=== PATIENT | male | born 1945 | race Caucasian/White ===

== ENCOUNTER 2021-08-21 23:55 | Emergency (ER) | payer MEDICARE, MEDICAID ==
[~2021-08-21] VITALS: Ht 154.9 cm; Wt 106.5 kg
--- NOTE | 2021-08-22 01:14 | ED GI ---
General Chief Complaint: Abdominal/GI Problems Stated Complaint: DIARRHEA,VOMITING Nursing Triage Note: PT TO ROOM BY [facility]. PT BROUGHT FROM [facility] WITH COMPLAINTS OF DIARRHEA STARTED THIS AM AND VOMITING THIS EVENING. PER EMS, [facility] NURSE TRIED TO GET PRESCRIPTION FOR ZOFRAN AND THE DR RECOMMENDED PT BE SEEN AT ER. EMS REPORTS PT DOES HAVE A HX OF ALZHEIMERS AND DEMENTIA. EMS ALSO REPORTS PT IS NOT NORMALLY ON O2, BUT O2 SAT IS 88-90%. PT PLACED ON 3L NC, O2 98% Source of Information: Patient, EMS Exam Limitations: Other (dementia) History of Present Illness Date Seen by Provider: August 22, 2021 Time Seen by Provider: 01:00 Initial Comments Patient is a 76-year-old male who was sent from a local [facility] with a chief complaint of diarrhea and vomiting. According to nursing report the patient started having diarrhea this morning and vomiting later in the evening. The patient has a history of dementia but tells me that he vomited at least 5 times today. On my evaluation of the patient he is completely asymptomatic. He has no nausea, no abdominal pain. No cough or shortness of breath. Nursing reported that the patient had sats of 89 to 91% on room air and he was placed on 3 L with improvement to 97%. He denies any known sick contacts. He states he was able to eat a little bit today. He denies black or bloody stools. He states he is urinating normally. But again completely asymptomatic on my evaluation. History of smoking but none currently. All other review of systems reviewed and negative except as stated. Timing/Duration: 24 Hours Severity/Quality: Mild Associated Symptoms: Denies Symptoms Allergies and Home Medications Allergies Coded Allergies: nitrofurantoin (Verified Allergy, Unknown, 08/22/21) Patient Home Medication List Home Medication List Reviewed: Yes Cefdinir (Cefdinir) 300 Mg Capsule, 300 MG PO BID Prescribed by: ISAAC BENITEZ on 08/22/21 0250 Ondansetron (Ondansetron Odt) 4 Mg Tab.rapdis, 4 MG PO Q8H PRN for NAUSEA/VOMITING Prescribed by: ISAAC BENITEZ on 08/22/21 0250 Review of Systems Review of Systems Constitutional: see HPI EENTM: No Symptoms Reported Respiratory: No Symptoms Reported Cardiovascular: No Symptoms Reported Gastrointestinal: No Symptoms Reported Genitourinary: No Symptoms Reported Musculoskeletal: no symptoms reported Skin: no symptoms reported Psychiatric/Neurological: No Symptoms Reported All Other Systems Reviewed Negative Unless Noted: Yes Past Wntznld-Deeesd-Xjuvsx Hx Patient Social History Tobacco Use?: No Use of E-Cig and/or Vaping dev: No Substance use?: No Alcohol Use?: No Past Medical History Appendectomy Sleep Apnea, COPD Hypertension Neurological: Yes Dementia, Stroke Reproductive Disorders: No Sexually Transmitted Disease: No HIV/AIDS: No Benign Prostatic Hyperpl Gastrointestinal: Yes Gastroesophageal Reflux Endocrine: Yes Diabetes, Non-Insulin dep Physical Exam Vital Signs Vital Signs - First Documented 08/21/21 23:55 Temp 35.7 Pulse 98 Resp 24 B/P (MAP) 106/71 (83) Pulse Ox 98 O2 Delivery Nasal Cannula O2 Flow Rate 3.00 Capillary Refill : Height/Weight/BMI Height: '" Weight: lbs. oz. kg; 44.00 BMI Method: General Appearance: WD/WN, no apparent distress HEENT: other (Moist mucous membranes) Neck: normal inspection Respiratory: lungs clear, normal breath sounds, no respiratory distress, no accessory muscle use, other (No increased work of breathing, oxygen sats 97% on 3 L) Cardiovascular: regular rate, rhythm Gastrointestinal: normal bowel sounds, non tender, soft Extremities: normal range of motion, normal inspection, no pedal edema Neurologic/Psychiatric: alert, normal mood/affect, other (Oriented to self and location) Skin: normal color, warm/dry Progress/Results/Core Measures Results/Orders Lab Results Laboratory Tests Test 08/22/21 00:09 Range/Units White Blood Count 15.8 H 4.3-11.0 10^3/uL Red Blood Count 5.81 H 4.30-5.52 10^6/uL Hemoglobin 18.0 H 13.3-17.7 g/dL Hematocrit 57 H 40-54 % Mean Corpuscular Volume 98 80-99 fL Mean Corpuscular Hemoglobin 31 25-34 pg Mean Corpuscular Hemoglobin Concent 32 32-36 g/dL Red Cell Distribution Width 13.3 10.0-14.5 % Platelet Count 261 130-400 10^3/uL Mean Platelet Volume 11.2 9.0-12.2 fL Immature Granulocyte % (Auto) 0 % Neutrophils (%) (Auto) 85 H 42-75 % Lymphocytes (%) (Auto) 6 L 12-44 % Monocytes (%) (Auto) 8 0-12 % Eosinophils (%) (Auto) 0 0-10 % Basophils (%) (Auto) 0 0-10 % Neutrophils # (Auto) 13.4 H 1.8-7.8 10^3/uL Lymphocytes # (Auto) 1.0 1.0-4.0 10^3/uL Monocytes # (Auto) 1.3 H 0.0-1.0 10^3/uL Eosinophils # (Auto) 0.0 0.0-0.3 10^3/uL Basophils # (Auto) 0.1 0.0-0.1 10^3/uL Immature Granulocyte # (Auto) 0.1 0.0-0.1 10^3/uL Neutrophils % (Manual) 85 % Lymphocytes % (Manual) 5 % Monocytes % (Manual) 10 % Polychromasia SLIGHT Anisocytosis SLIGHT Sodium Level 139 135-145 MMOL/L Potassium Level 4.4 3.6-5.0 MMOL/L Chloride Level 105 98-107 MMOL/L Carbon Dioxide Level 13 L 21-32 MMOL/L Anion Gap 21 H 5-14 MMOL/L Blood Urea Nitrogen 17 7-18 MG/DL Creatinine 1.10 0.60-1.30 MG/DL Estimat Glomerular Filtration Rate 69 BUN/Creatinine Ratio 15 Glucose Level 168 H 70-105 MG/DL Calcium Level 10.4 H 8.5-10.1 MG/DL My Orders Orders - ISAAC BENITEZ MD Ed Iv/Invasive Line Start (08/22/21 01:13) Cbc With Automated Diff (08/22/21 01:13) Basic Metabolic Panel (08/22/21 01:13) Chest 1 View, Ap/Pa Only (08/22/21 01:13) Manual Differential (08/22/21 00:09) Ceftriaxone 1 Gm Pre-Mix (Rocephin 1 Gm (08/22/21 02:45) Ns Iv 1000 Ml (Sodium Chloride 0.9%) (08/22/21 02:45) Vital Signs/I&O 08/21/21 23:55 Temp 35.7 Pulse 98 Resp 24 B/P (MAP) 106/71 (83) Pulse Ox 98 O2 Delivery Nasal Cannula O2 Flow Rate 3.00 Blood Pressure Mean: 83 Progress Progress Note : Time: 02:37 Progress Note Laboratory studies reveal a leukocytosis with a left shift and likely some volume depletion as his hemoglobin and hematocrit are slightly increased and his CO2 is down to 13. He does look like he has a developing infiltrate in the right lower lobe on chest x-ray. We will give him a liter of fluids prior to discharge as well as 1 g of Rocephin. I plan to put him on some Omnicef and send him home with an albuterol inhaler. Nursing had to turn down his oxygen to 1 L and currently he is satting 94 to 96% on the 1 L. Anticipate that we will be able to bring him off the oxygen and send him back to [facility] and rehab. Recommendations for return to the emergency department if he develops any worsening symptoms I will also write for prescription for some Zofran. Patient is confused but pleasant, nontoxic and in no acute distress. Diagnostic Imaging Diagonstic Imaging: Xray Plain Films/CT/US/NM/MRI: chest Comments Chest x-ray interpreted by me, early infiltrate in the right lower lobe, no effusions Departure Impression Primary Impression: Right lower lobe pneumonia Qualified Codes: J18.9 - Pneumonia, unspecified organism Additional Impressions: Nausea and vomiting Qualified Codes: R11.2 - Nausea with vomiting, unspecified Dehydration, mild Disposition: 01 HOME, SELF-CARE Condition: Stable Departure-Patient Inst. Decision time for Depature: 02:40 Referrals: UNKNOWN (PCP/Family) Primary Care Physician Patient Instructions: Community-Acquired Pneumonia in Adults, Nausea and Vomiting, Adult ED Add. Discharge Instructions: He will need to drink fluids to stay well-hydrated. Zofran, every 8 hours, as needed for nausea. Omnicef/cefdinir 300 mg twice a day for 7 days. If he develops worsening nausea vomiting, shortness of breath or other emergent concerning symptoms he needs to come back to the emergency department for reevaluation peer He will need to follow-up within the next week with his primary care physician/[facility] physician. Scripts Ondansetron (Ondansetron Odt) 4 Mg Tab.rapdis 4 MG PO Q8H PRN for NAUSEA/VOMITING, #10 TAB 0 Refills Prov: ISAAC BENITEZ MD 08/22/21 Cefdinir (Cefdinir) 300 Mg Capsule 300 MG PO BID, #14 CAP 0 Refills Prov: ISAAC BENITEZ MD 08/22/21 ISAAC BENITEZ MD August 22, 2021 01:14
[2021-08-22 01:23] LABS: BASOPHILS # (AUTO) 0.1 10^3/uL (0.0-0.1); BASOPHILS % (AUTO) 0 % (0-10); EOSINOPHILS % (AUTO) 0 % (0-10); HEMATOCRIT 57 % (40-54); LYMPHOCYTES % (AUTO) 6 % (12-44); MEAN CORPUSCULAR HEMOGLOBIN 31 pg (25-34); MEAN CORPUSCULAR HGB CONC 32 g/dL (32-36); MEAN CORPUSCULAR VOLUME 98 fL (80-99); MEAN PLATELET VOLUME 11.2 fL (9.0-12.2); MONOCYTES # (AUTO) 1.3 10^3/uL (0.0-1.0); MONOCYTES % (AUTO) 8 % (0-12); NEUTROPHILS # (AUTO) 13.4 10^3/uL (1.8-7.8); NEUTROPHILS % (AUTO) 85 % (42-75); PLATELET COUNT 261 10^3/uL (130-400); WHITE BLOOD COUNT 15.8 10^3/uL (4.3-11.0)
[2021-08-22 01:24] LABS: POTASSIUM 4.4 MMOL/L (3.6-5.0)
[2021-08-22 01:25] LABS: CALCIUM 10.4 MG/DL (8.5-10.1)
[2021-08-22 01:30] LABS: CREATININE SERUM 1.1 MG/DL (0.60-1.30)
[2021-08-22 01:52] LABS: ANISOCYTOSIS SLIGHT; LYMPHOCYTES % (MANUAL) 5 %; MONOCYTES % (MANUAL) 10 %; NEUTROPHILS % (MANUAL) 85 %; POLYCHROMASIA SLIGHT
[2021-08-22] MEDS ORDERED: NS IV 1000 ML 1,000 ML IV SCH (02:45)
[2021-08-22] MEDS ORDERED: cefTRIAXone 1 GM PRE-MIX 50 ML IV ONE (02:45)
[2021-08-22] MEDS ORDERED: ONDA4TAB11 PO (02:50)
[2021-08-22] MEDS ORDERED: CEFD300C3 PO (02:50)
[2021-08-22 05:32] VITALS: BP 108/66
--- NOTE | 2021-08-22 07:01 | Diagnostic Imaging Report ---
EXAM: CHEST 1 VIEW, AP/PA ONLY INDICATION: Weakness. COMPARISON: None. FINDINGS: Cardiomegaly with pulmonary vascular congestion. Mild bibasilar atelectasis or infiltrate. No pleural effusion or pneumothorax. Cardiac pacer. No acute osseous findings. IMPRESSION: 1. Cardiomegaly with mild pulmonary vascular congestion. 2. Mild bibasilar atelectasis or infiltrate. Dictated by: Dictated on workstation # [id number]
== END 2021-08-22 05:32 | disposition home or self-care (01) ==
LOC: ER 23:58
DX: J18.9 Pneumonia, unspecified organism (principal); G30.9 Alzheimer's disease, unspecified; F02.80 Dementia in other diseases classified elsewhere, unspecified severity, without behavioral disturbance, psychotic disturbance, mood disturbance, and anxiety; Z99.81 Dependence on supplemental oxygen
CPT/HCPCS: 36415; 71045; 80048; 85007; 85027

== ENCOUNTER 2022-04-06 23:50 | Inpatient (IN) | payer MEDICARE, MEDICAID ==
[~2022-04-06] VITALS: Ht 185.5 cm; Wt 116.9 kg
[~2022-04-06 23:50] MED LIST: CEFD300C3 PO; ONDA4TAB11 PO
[2022-04-07] VITALS (7 sets, daily range): BP systolic 80–129; BP diastolic 42–94
[2022-04-07] MEDS ORDERED: LACTATED RINGERS 1,000 ML IV ONE
--- NOTE | 2022-04-07 00:02 | ED General ---
General Chief Complaint: Trauma-Non Activation Stated Complaint: FALL Source of Information: Patient, EMS, Care Home Records History of Present Illness Date Seen by Provider: Apr 07, 2022 Time Seen by Provider: 23:53 Initial Comments PT ARRIVES VIA EMS FROM [facility]. REPORT FROM [facility] WAS THAT PT HAD A WITNESSED "FALL" IN THE HALLWAY--BILLIARD TABLE MECHANIC REPORTEDLY SAW HIM STARTING TO "FALL" AND COULD NOT GET TO HIM FAST ENOUGH, AND HE FELL ONTO WOOD AURELIO, AND HAD + LOSS OF CONSCIOUSNESS FOR 30-45 SECONDS, AND WHEN HE CAME TO, HE SEEMED TO HAVE A DECREASED MENTATION FROM HIS NORMAL BASELINE OF MILD DEMENTIA. PT REPORTS THAT HE WAS ON HIS WAY TO THE BATHROOM AND WAS IN THE CASH AND GOT DIZZY AND PASSED OUT / FAINTED. BP READINGS WERE IN THE 80'S SYSTOLIC FOR [facility]UR[facility], AND BP FOR EMS WAS 88/69, WITH HR 89 PT IS ON ELIQUIS FOR HISTORY OF ATRIAL FIBRILLATION AND PRIOR STROKE. PT REPORTEDLY IS NORMALLY ABLE TO AMBULATE INDEPENDENTLY AND FOLLOW COMMANDS, ETC. ON ARRIVAL, PT IS ALERT, ORIENTED TO PERSON, PLACE, GROSSLY ORIENTED TO TIME, AND IS ORIENTED TO SITUATION AND IS ABLE TO STATE WHAT OCCURRED TONIGHT. HE IS ALSO ABLE TO VERIFY PAST MEDICAL HISTORY, BUT DOES NOT VOLUNTEER INFORMATION PT DENIES PAIN ANYWHERE OR FEELING BAD NO OBVIOUS WOUNDS OR BRUISING FROM THE FALL NOTED AT THIS TIME BLOOD GLUCOSE 179 FOR EMS. PT IS DNR PER [facility] RECORDS PCP: DR. NAZARIO / [facility] Allergies and Home Medications Allergies Coded Allergies: nitrofurantoin (Verified Allergy, Unknown, 08/22/21) Patient Home Medication List Home Medication List Reviewed: Yes Cefdinir (Cefdinir) 300 Mg Capsule, 300 MG PO BID Prescribed by: ISAAC BENITEZ on 08/22/21249 Ondansetron (Ondansetron Odt) 4 Mg Tab.rapdis, 4 MG PO Q8H PRN for NAUSEA/VOMITING Prescribed by: ISAAC BENITEZ on 08/22/21 025 Review of Systems Review of Systems Constitutional: see HPI, dizziness EENTM: no symptoms reported Respiratory: no symptoms reported; No cough, No short of breath Cardiovascular: No chest pain, No edema, No palpitations; syncope Gastrointestinal: no symptoms reported; No abdominal pain, No diarrhea, No nausea, No vomiting Genitourinary: no symptoms reported Musculoskeletal: no symptoms reported Skin: no symptoms reported Psychiatric/Neurological: See HPI; Denies Headache, Denies Numbness, Denies Paresthesia, Denies Seizure, Denies Tingling, Denies Tremors Hematologic/Lymphatic: See HPI Immunological/Allergic: no symptoms reported Past Urluzmg-Mmtbna-Wwstll Hx Past Medical History Surgeries: Yes Appendectomy, Pacemaker, Prostatectomy Respiratory: Yes Sleep Apnea, COPD Cardiac: Yes Atrial Fibrillation, High Cholesterol, Hypertension 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) Dementia, Neuropathy, Stroke Reproductive Disorders: No Sexually Transmitted Disease: No HIV/AIDS: No Genitourinary: Yes (RENAL CYST; PROSTATECTOMY --PT DENIES CANCER, ONLY ENLARGED PROSTATE) Benign Prostatic Hyperpl, Prostate Problems Gastrointestinal: Yes (S/P APPENDECTOMY) Gastroesophageal Reflux Musculoskeletal: Yes (GENERALIZED WEAKNESS) Endocrine: Yes (PROTEIN-CALORIE MALNUTRITION) Diabetes, Non-Insulin dep HEENT: Yes (TEETH REMOVED/DENTURES IN PLACE) Psychosocial: Yes (PSEUDOBULBAR AFFECT; S/P CVA; DEMENTIA; MOOD DISORDER) Sleep Difficulties, Anxiety, Depression Integumentary: No Blood Disorders: No Physical Exam Vital Signs Vital Signs - First Documented 04/07/22 01:30 O2 Flow Rate 2.00 Capillary Refill : Height, Weight, BMI Height: '" Weight: lbs. oz. kg; 44.00 BMI Method: General Appearance: No Apparent Distress, WD/WN, Other (SOMEWHAT LETHARGIC, DROWSY--STATES HE IS TIRED AND JUST WANTS TO BE ABLE TO GO TO SLEEP) HEENT: PERRL/EOMI, TMs Normal, Normal ENT Inspection, Pharynx Normal Neck: Full Range of Motion, Normal Inspection, Non Tender, Supple Respiratory: Normal Breath Sounds, No Accessory Muscle Use, No Respiratory Distress Cardiovascular: No Edema, No JVD, No Murmur, Normal Peripheral Pulses, Irregularly Irregular Gastrointestinal: Normal Bowel Sounds, No Organomegaly, No Pulsatile Mass, Non Tender, Soft Back: Normal Inspection, No CVA Tenderness, No Vertebral Tenderness Extremity: Normal Capillary Refill, Normal Inspection, Normal Range of Motion, Non Tender, No Calf Tenderness, No Pedal Edema Neurologic/Psychiatric: Alert, Oriented x3 (BUT MENTATION IS SLIGHTLY SLOW AND HAS FLAT AFFECT), No Motor/Sensory Deficits, frame bender II-XII Norm as Tested Skin: Normal Color, Warm/Dry; No Ecchymosis, No Petechia, No Rash; Other (NO EXTERNAL EVIDENCE OF TRAUMA ANYWHERE) Focused Exam Lactate Level 04/06/22 00:00: Lactic Acid Level 3.04*H Lactic Acid Level Laboratory Tests Test 04/06/22 00:00 Lactic Acid Level 3.04 MMOL/L (0.50-2.00) *H Progress/Results/Core Measures Suspected Sepsis SIRS Temperature: Pulse: Respiratory Rate: Laboratory Tests 04/06/22 00:00: White Blood Count 11.4H Blood Pressure / Mean: 04/06/22 00:00: Lactic Acid Level 3.04*H Laboratory Tests 04/06/22 00:00: Creatinine 0.76, INR Comment 1.5H, Platelet Count 291, Total Bilirubin 0.6 Results/Orders Lab Results Laboratory Tests Test 04/06/22 00:00 04/06/22 01:30 04/07/22 00:02 04/07/22 00:10 Range/Units White Blood Count 11.4 H 4.3-11.0 10^3/uL Red Blood Count 3.86 L 4.30-5.52 10^6/uL Hemoglobin 12.1 L 13.3-17.7 g/dL Hematocrit 36 L 40-54 % Mean Corpuscular Volume 93 80-99 fL Mean Corpuscular Hemoglobin 31 25-34 pg Mean Corpuscular Hemoglobin Concent 34 32-36 g/dL Red Cell Distribution Width 12.6 10.0-14.5 % Platelet Count 291 130-400 10^3/uL Mean Platelet Volume 11.6 9.0-12.2 fL Immature Granulocyte % (Auto) 1 % Neutrophils (%) (Auto) 54 42-75 % Lymphocytes (%) (Auto) 30 12-44 % Monocytes (%) (Auto) 13 H 0-12 % Eosinophils (%) (Auto) 2 0-10 % Basophils (%) (Auto) 0 0-10 % Neutrophils # (Auto) 6.1 1.8-7.8 10^3/uL Lymphocytes # (Auto) 3.4 1.0-4.0 10^3/uL Monocytes # (Auto) 1.5 H 0.0-1.0 10^3/uL Eosinophils # (Auto) 0.3 0.0-0.3 10^3/uL Basophils # (Auto) 0.1 0.0-0.1 10^3/uL Immature Granulocyte # (Auto) 0.1 0.0-0.1 10^3/uL Prothrombin Time 18.4 H 12.2-14.7 SEC INR Comment 1.5 H 0.8-1.4 Activated Partial Thromboplast Time 33 24-35 SEC Sodium Level 136 135-145 MMOL/L Potassium Level 3.7 3.6-5.0 MMOL/L Chloride Level 101 98-107 MMOL/L Carbon Dioxide Level 23 21-32 MMOL/L Anion Gap 12 5-14 MMOL/L Blood Urea Nitrogen 24 H 7-18 MG/DL Creatinine 0.76 0.60-1.30 MG/DL Estimat Glomerular Filtration Rate 93 BUN/Creatinine Ratio 32 Glucose Level 164 H 70-105 MG/DL Lactic Acid Level 3.04 *H 0.50-2.00 MMOL/L Calcium Level 8.5 8.5-10.1 MG/DL Corrected Calcium 9.2 8.5-10.1 MG/DL Magnesium Level 1.7 1.6-2.4 MG/DL Total Bilirubin 0.6 0.1-1.0 MG/DL Aspartate Amino Transf (AST/SGOT) 15 5-34 U/L Alanine Aminotransferase (ALT/SGPT) 20 0-55 U/L Alkaline Phosphatase 44 40-136 U/L Troponin I < 0.028 <0.028 NG/ML Total Protein 5.4 L 6.4-8.2 GM/DL Albumin 3.1 L 3.2-4.5 GM/DL Procalcitonin 0.05 <0.10 NG/ML Valproic Acid (Depakene) Level 29.6 L 50.0-100.0 UG/ML Urine Color YELLOW Urine Clarity CLEAR Urine pH 5.5 5-9 Urine Specific [place] >=1.030 1.016-1.022 Urine Protein TRACE H NEGATIVE Urine Glucose (UA) NEGATIVE NEGATIVE Urine Ketones TRACE H NEGATIVE Urine Nitrite NEGATIVE NEGATIVE Urine Bilirubin NEGATIVE NEGATIVE Urine Urobilinogen 1.0 < = 1.0 MG/DL Urine Leukocyte Esterase NEGATIVE NEGATIVE Urine RBC (Auto) NEGATIVE NEGATIVE Urine RBC NONE /HPF Urine WBC RARE /HPF Urine Squamous Epithelial Cells 0-2 /HPF Urine Crystals NONE /LPF Urine Bacteria NEGATIVE /HPF Urine Casts PRESENT /LPF Urine Hyaline Casts 0-2 H /LPF Urine Mucus NEGATIVE /LPF Urine Culture Indicated NO Influenza Type A (RT-PCR) Not Detected Not Detecte Influenza Type B (RT-PCR) Not Detected Not Detecte SARS-CoV-2 RNA (RT-PCR) Not Detected Not Detecte Glucometer 151 H 70-110 MG/DL My Orders Orders - SPRING KING DO Accucheck Stat ONCE (04/06/22 23:51) Ed Iv/Invasive Line Start (04/06/22 23:51) Ekg Tracing (04/06/22:51) O2 (04/06/22:51) Monitor-Rhythm Ecg Trace Only (04/06/22:51) Ct Head/Face/Cervical Wo (04/06/22:51) Ct Thoracic/Lumbar Spine Wo (04/06/22:51) Chest 1 View, Ap/Pa Only (04/06/22:51) Pelvis 1 To 2 Views (04/06/22:51) Cbc With Automated Diff (04/06/22 23:51) Comprehensive Metabolic Panel (04/06/22 23:51) Lactic Acid Analyzer (04/06/22 23:51) Magnesium (04/06/22 23:51) Procalcitonin (Pct) (04/06/22 23:51) Protime With Inr (04/06/22:51) Partial Thromboplastin Time (04/06/22 23:51) Ua Culture If Indicated (04/06/22 23:51) Troponin I [place] (04/06/22 23:51) Ed Iv/Invasive Line Start (04/06/22 23:51) Lactated Ringers (Lr 1000 Ml Iv Solution (04/07/22 00:00) Valproic Acid (04/06/22 23:57) Blood Culture (04/07/22 01:05) Covid 19 Inhouse Test (04/07/22 01:05) Influenza A And B By Pcr (04/07/22 01:05) Isolation Central Supply Req (04/07/22 01:05) Fecal Occult Bedside (04/07/22 01:14) Ondansetron Injection (Zofran Injectio (04/07/22 01:30) Pantoprazole Injection (Protonix Injecti (04/07/22 01:30) Medications Given in ED Current Medications Medications Dose Ordered Sig/Fabrizio Route Start Time Stop Time Status Last Admin Dose Admin Lactated Ringer's 1,000 ml @ 0 mls/hr Q0M ONCE IV 04/07/22 00:00 04/07/22 00:01 DC 04/07/22 01:10 999 MLS/HR Ondansetron HCl 8 mg ONCE ONCE IVP 04/07/22 01:30 04/07/22 01:31 DC 04/07/22 01:39 8 MG Pantoprazole 80 mg ONCE ONCE IV 04/07/22 01:30 04/07/22 01:31 DC 04/07/22 01:39 80 MG Vital Signs/I&O 04/06/22 04/06/22 04/07/22 23:53 23:53 01:30 Pulse 79 Resp 16 B/P (MAP) 97/55 (69) Pulse Ox 96 O2 Delivery Room Air Room Air OxyMask O2 Flow Rate 2.00 04/07/22 00:00 Intake Total 50 ml Balance 50 ml Capillary Refill : Progress Note : Progress Note GIVEN IV FLUIDS ON ARRIVAL AND BP UP TO > 100 SYSTOLIC WITH 1 LITER OF FLUIDS PLACED IN O2 ON ARRIVAL COVID AND FLU TESTING DONE 0110--AFTER PT HAD RETURNED FROM XRAY DEPT AFTER CT OF HEAD, HE WAS NOTED TO HAVE LARGE AMOUNT OF BLOOD AROUND HIS MOUTH AND NOSE, AND THEN BEGAN HAVING NAUSEA WITH VOMITING OF BRIGHT RED BLOOD. THERE DOES NOT APPEAR TO BE AN ACTUAL NOSEBLEED--BLOOD IS ON OUTER ASPECT OF NOSE. ALL BLOOD APPEARS TO BE COMING FROM HIS MOUTH. DENTURES REMOVED. NO OBVIOUS INTRA-ORAL WOUND/LESION/SOURCE OF BLEEDING. PT ALSO NOTED TO HAVE A LARGE BLACK/ TARRY STOOL AT THIS TIME WELL, HEMOCCULT +. GIVEN ZOFRAN AND PROTONIX. NO FURTHER COMPLAINTS OF NAUSEA OR VOMITING ALSO GIVEN OCTREOTIDE AND K-CENTRA PER PROTOCOL VITALS STABLE, NO HYPOTENSION FOR REMAINDER OF ER STAY. NO TACHYCARDIA MARKED DELAY IN OBTAINING CT REPORT OF CHEST/ABDOMEN/PELVIS--CALLED RADIOLOGY DEPT AT 0305, AND THEY WILL CONTACT [facility] TO EXPEDITE GETTING CT READ. PT DID BEGIN TO COMPLAIN OF STOMACH DISCOMFORT PRIOR TO BEING TRANSFERRED TO THE FLOOR, BUT NO COMPLAINTS OF NAUSEA AND NO VOMITING AND NO OTHER STOOLS DURING ER STAY. WILL HOLD OFF ON NG TUBE AT THIS TIME, PT IS NO LONGER VOMITING. WILL DEFER TO DR. SHARMA FOR ORDERS FOR NG TUBE PLACEMENT. PT'S ONLY OTHER VISIT HERE WAS IN AUGUST FOR PNEUMONIA--TREATED IN ER AND DISMISSED BACK TO [facility] AT THAT TIME. ECG Initial ECG Impression Date: Apr 07, 2022 Initial ECG Impression Time: 00:13 Initial ECG Rate: 78 Comment ATRIAL FIBRILLATION WITH WHAT APPEARS TO BE DEMAND PACEMAKER SPIKES; IVCD FREQUENT PVC'S NON-SPECIFIC ST SEGMENTS NO PRIOR EKG'S OR RHYTHM STRIPS FOR COMPARISON Diagnostic Imaging Comments CXR--NO ACUTE PROCESS, PACEMAKER IN PLACE IN LEFT UPPER CHEST--PENDING RADIOLOGIST REVIEW CT HEAD/MAXILLOFACIALS/CERVICAL SPINE--PER [facility] VIA FAX AT 0140 -NO ACUTE INTRACRANIAL HEMORRHAGE, HYDROCEPHALUS OR MASS EFFECT -LEFT FRONTAL-TEMPORAL ENCEPHALOMALACIA -ON ACUTE FRACTURE OF SKULL OR FACIAL BONES OR CERVICAL SPINE -DEGENERATIVE CHANGES OF CERVICAL SPINE CT THORACIC/LUMBAR SPINE--PER [facility] VIA FAX AT 0159 -NO ACUTE FINDINGS OR FRACTURE -DEGENERATIVE CHANGES WITH MODERATE L1-L4 SPINAL STENOSIS FROM DEGENERATIVE PROCESS CT CHEST/ABDOMEN/PELVIS--PER [facility] VIA FAX AT 0326 -NO ACUTE PROCESS -NO OBVIOUS GI HEMORRHAGE -MODERATELY DISTENDED STOMACH CONTAINING A LARGE VOLUME OF DEBRIS MIXED WITH GAS BUBBLES. -SHORT SEGMENT OF MINIMALLY DILATED SMALL BOWEL IN RIGHT LOWER QUADRANT Reviewed: Reviewed by Me Departure Communication (Admissions) 0127--SPOKE WITH DR. BOLTON, HOSPITALIST FOR [facility]. ACCEPTS PT FOR ADMIT 0130--CALLED E-ICU, ADVISED TO CALL BACK IN A FEW MINUTES 0135--SPOKE WITH E-ICU PHYSICIAN AND REPORT GIVEN. 0141--SPOKE WITH DR. SHARMA, SURGEON TETRYL NITRATOR OPERATOR, HE ADVISES TO GIVE K-CENTRA, AND OBTAIN CT CHEST/ABDOMEN/PELVIS WELL. 0425--REPORT TO [facility] STAFF MEMBER AND UPDATED THEM ON PT'S CONDITION AND THAT PT WAS BEING ADMITTED. Impression Primary Impression: Episode of syncope Additional Impressions: GI bleed ELIQUIS THERAPY Head injury HYPOTENSION DUE TO GI BLEED HX OF ISCHEMIC CVA NIDDM WITNESSED FALL DUE TO SYNCOPE Atrial fibrillation with controlled ventricular rate PACEMAKER IN PLACE Dementia Disposition: ADMITTED INPATIENT Condition: Improved Admissions Decision to Admit Reason: Admit from ER (General) Decision to Admit/Date: Apr 07, 2022 Time/Decision to Admit Time: 01:30 Departure-Patient Inst. Referrals: [facility] (PCP) Primary Care Physician KIRSTEN NAZARIO MD (Family) Primary Care Physician SPRING KING DO Apr 07, 2022 00:02
[2022-04-07 00:24] LABS: BASOPHILS # (AUTO) 0.1 10^3/uL (0.0-0.1); BASOPHILS % (AUTO) 0 % (0-10); EOSINOPHILS # (AUTO) 0.3 10^3/uL (0.0-0.3); EOSINOPHILS % (AUTO) 2 % (0-10); HEMATOCRIT 36 % (40-54); HEMOGLOBIN 12.1 g/dL (13.3-17.7); LYMPHOCYTES # (AUTO) 3.4 10^3/uL (1.0-4.0); LYMPHOCYTES % (AUTO) 30 % (12-44); MEAN CORPUSCULAR HEMOGLOBIN 31 pg (25-34); MEAN CORPUSCULAR HGB CONC 34 g/dL (32-36); MEAN CORPUSCULAR VOLUME 93 fL (80-99); MEAN PLATELET VOLUME 11.6 fL (9.0-12.2); MONOCYTES # (AUTO) 1.5 10^3/uL (0.0-1.0); MONOCYTES % (AUTO) 13 % (0-12); NEUTROPHILS # (AUTO) 6.1 10^3/uL (1.8-7.8); NEUTROPHILS % (AUTO) 54 % (42-75); PLATELET COUNT 291 10^3/uL (130-400); WHITE BLOOD COUNT 11.4 10^3/uL (4.3-11.0)
[2022-04-07 00:35] LABS: ALANINE AMINOTRANSFERASE 20 U/L (0-55); ALBUMIN 3.1 GM/DL (3.2-4.5); ALKALINE PHOSPHATASE 44 U/L (40-136); BILIRUBIN,TOTAL 0.6 MG/DL (0.1-1.0); BUN/CREATININE RATIO 32; CALCIUM 8.5 MG/DL (8.5-10.1); CARBON DIOXIDE 23 MMOL/L (21-32); CHLORIDE 101 MMOL/L (98-107); CREATININE SERUM 0.76 MG/DL (0.60-1.30); GFR ESTIMATED 93; GLUCOSE 164 MG/DL (70-105); MAGNESIUM 1.7 MG/DL (1.6-2.4); POTASSIUM 3.7 MMOL/L (3.6-5.0); SODIUM 136 MMOL/L (135-145); TOTAL PROTEIN 5.4 GM/DL (6.4-8.2)
[2022-04-07 00:36] LABS: INR 1.5 (0.8-1.4); PROTHROMBIN TIME PATIENT 18.4 SEC (12.2-14.7)
[2022-04-07 00:55] LABS: VALPROIC ACID 29.6 UG/ML (50.0-100.0)
[2022-04-07] MEDS ORDERED: ONDANSETRON 4 MG/2 ML (SDV) Z0FRAN IVP ONE (01:30)
[2022-04-07] MEDS ORDERED: PANTOPRAZOLE 40 MG (PROTONIX) VIAL IV ONE (01:30)
[2022-04-07 01:42] LABS: BILIRUBIN,URINE NEGATIVE (NEGATIVE); CLARITY,URINE CLEAR; COLOR,URINE YELLOW; GLUCOSE, URINE (UA) NEGATIVE (NEGATIVE); KETONES,URINE TRACE (NEGATIVE); LEUKOCYTE ESTERASE ,URINE NEGATIVE (NEGATIVE); NITRITE,URINE NEGATIVE (NEGATIVE); PH,URINE 5.5 (5-9); PROTEIN,URINE TRACE (NEGATIVE)
[2022-04-07] MEDS ORDERED: LIDOCAINE UROJET 2% GEL 10 ML PKG TOP ONE (01:45)
[2022-04-07] MEDS ORDERED: OCTREOTIDE INJECTION 50 MCG in NS (IVPB) 50 ML IV ONE (01:45)
[2022-04-07] MEDS ORDERED: OCTREOTIDE INJECTION 500 MCG in NS (IVPB) 99 ML IV SCH (01:45)
[2022-04-07] MEDS ORDERED: HUMAN PROTHROMBIN COMPLX(PCC) 500 UNIT (KCENTRA) IV ONE (01:45)
[2022-04-07] MEDS ORDERED: NS 100 ML (IVPB) BAG IV ONE (02:00)
[2022-04-07] MEDS ORDERED: IOHEXOL 350 MG/ML 100 ML (OMNIPAQUE 350) VIAL IV ONE (02:00)
[2022-04-07] MEDS ORDERED: HOLD METFORMIN - RECEIVED CONTRAST 20 ML VIAL IV SCH (02:00)
[2022-04-07 02:09] LABS: BACTERIA,URINE NEGATIVE /HPF; HYALINE CASTS, URINE 0-2 /LPF; SQUAMOUS EPITHELIAL CELL,UR 0-2 /HPF; WBC,URINE RARE /HPF
[2022-04-07] MEDS ORDERED: ONDANSETRON 4 MG/2 ML (SDV) Z0FRAN IV PRN (04:45)
[2022-04-07] MEDS ORDERED: RT-ALBUTEROL/IPRATROPIUM 3 ML (DUONEB) VIAL INH PRN (04:45)
[2022-04-07] MEDS: inSUlin ASPART (NovoLOG) 1 UNIT/0.01 ML (CHARGE PER UNIT) SC SCH ×4 (05:33→23:26)
[2022-04-07 05:40] LABS: BASOPHILS # (AUTO) 0.1 10^3/uL (0.0-0.1); BASOPHILS % (AUTO) 0 % (0-10); EOSINOPHILS % (AUTO) 0 % (0-10); HEMATOCRIT 33 % (40-54); HEMOGLOBIN 11.1 g/dL (13.3-17.7); LYMPHOCYTES % (AUTO) 6 % (12-44); MEAN CORPUSCULAR HEMOGLOBIN 31 pg (25-34); MEAN CORPUSCULAR HGB CONC 33 g/dL (32-36); MEAN CORPUSCULAR VOLUME 94 fL (80-99); MEAN PLATELET VOLUME 11.6 fL (9.0-12.2); MONOCYTES # (AUTO) 1.5 10^3/uL (0.0-1.0); MONOCYTES % (AUTO) 9 % (0-12); NEUTROPHILS # (AUTO) 14.1 10^3/uL (1.8-7.8); NEUTROPHILS % (AUTO) 83 % (42-75); PLATELET COUNT 262 10^3/uL (130-400)
[2022-04-07] MEDS: NS IV 1000 ML 1,000 ML IV SCH ×4 (05:49→19:49)
[2022-04-07] MEDS: PANTOPRAZOLE INJECTION 200 MG in NS (IVPB) 100 ML IV SCH (05:49)
[2022-04-07 06:02] LABS: ALBUMIN 3.2 GM/DL (3.2-4.5); BILIRUBIN,TOTAL 0.6 MG/DL (0.1-1.0); CALCIUM 8.7 MG/DL (8.5-10.1); CREATININE SERUM 0.78 MG/DL (0.60-1.30); MAGNESIUM 1.8 MG/DL (1.6-2.4); PHOSPHORUS 4.2 MG/DL (2.3-4.7); POTASSIUM 4.5 MMOL/L (3.6-5.0); TOTAL PROTEIN 5.5 GM/DL (6.4-8.2)
[2022-04-07 06:13] LABS: BURR CELLS SLIGHT; ELLIPT/OVALOCYTES SLIGHT; LYMPHOCYTES % (MANUAL) 4 %; MONOCYTES % (MANUAL) 5 %; NEUTROPHILS % (MANUAL) 91 %
--- NOTE | 2022-04-07 06:44 | Diagnostic Imaging Report ---
PROCEDURE: CT head, face, and cervical spine without contrast. TECHNIQUE: Multiple contiguous axial images were obtained through the head, neck, and facial bones without the use of intravenous contrast. Sagittal and coronal reformations through the cervical spine and facial bones were also performed. Auto Exposure Controls were utilized during the CT exam to meet ALARA standards for radiation dose reduction. INDICATION: Fall. Head and neck pain. COMPARISON: None. FINDINGS: CT head: No large acute territorial ischemia, mass, or hemorrhage. No midline shift or mass effect. Old infarct is seen in the left frontal lobe. Decreased attenuation is seen in the periventricular and subcortical white matter. The ventricles and cortical sulci are prominent. The basilar cisterns are patent and unremarkable. The calvarium is intact. CT face: No acute facial fractures are visualized. The patient is edentulous. The mandible, zygomatic arches, and pterygoid plates are intact. The bilateral TMJ demonstrate normal articulation. No nasal bone fractures. The bony nasal septum is slightly deviated to the right without fracture. Retained secretions are seen in the bilateral maxillary sinuses. The globes and orbits are symmetric and unremarkable. No evidence of orbital rim fracture. CT cervical spine: No acute fracture or dislocation is seen in the cervical spine. No focal osseous lesions. There is straightening of the cervical spine. Vertebral body heights are well-maintained. The craniocervical junction is well-maintained. Mild degenerative changes are seen in the cervical spine with disc osteophyte complexes and uncovertebral arthropathy. Soft tissues of the neck are unremarkable. IMPRESSION: 1. No hemorrhage or focal intra-axial mass. No CT evidence of large acute territorial ischemia. 2. No acute fracture or dislocation in the cervical spine. 3. No acute facial fractures. Agree with overnight report. Dictated by: Dictated on workstation # [id number]
--- NOTE | 2022-04-07 06:44 | Diagnostic Imaging Report ---
PROCEDURE: CT thoracic and lumbar spine without contrast. TECHNIQUE: Multiple contiguous axial images were obtained through the thoracic and lumbar spine without the use of intravenous contrast. Sagittal and coronal reformations were then performed. All CT scans use one or more of the following dose optimizing techniques: automated exposure control, MA and/or KvP adjustment based on a patient size and exam type, or iterative reconstruction. INDICATION: Fall. Mid and lower back pain. COMPARISON: None. FINDINGS: No acute fracture or dislocation is seen in the thoracic and lumbar spine. There is generalized straightening of the thoracic and lumbar spine. Scattered bone islands are seen. No suspicious osseous lesions. Schmorl's nodes are scattered in the thoracic and lumbar spine. No evidence of bony retropulsion. No acute spinal canal stenosis. No high density material is seen within the spinal canal. The included lungs demonstrate dependent atelectasis bilaterally. The paraspinal soft tissues are unremarkable. IMPRESSION: 1. No acute fracture or dislocation in the thoracic and lumbar spine. Agree with overnight report. Dictated by: Dictated on workstation # [id number]
--- NOTE | 2022-04-07 07:21 | Diagnostic Imaging Report ---
CLINICAL HISTORY: Pelvic pain. Fall. COMPARISON: None. TECHNIQUE: Single view of the pelvis is obtained. FINDINGS: There is no acute fracture or dislocation of the pelvis and bilateral hips. Alignment is anatomic. The imaged joint spaces are preserved. No focal osseous lesions. Surgical clips are seen overlying the pelvis. IMPRESSION: 1. No acute fracture or dislocation in the pelvis and bilateral hips. Dictated by: Dictated on workstation # [id number]
--- NOTE | 2022-04-07 07:21 | Diagnostic Imaging Report ---
EXAMINATION: Chest 1 view HISTORY: Fall. Chest pain. COMPARISON: 08/22/2021. FINDINGS: The lung volumes are normal. No focal consolidation is seen. No large pleural effusion or pneumothorax is seen. The cardiomediastinal silhouette is normal in size and contour. Left pectoral pacemaker is partially visualized. There is calcified aortic atherosclerotic plaque. No acute osseous abnormality is seen. IMPRESSION: 1. No acute pleuroparenchymal process. Dictated by: Dictated on workstation # [id number]
--- NOTE | 2022-04-07 07:24 | Diagnostic Imaging Report ---
EXAMINATION: CT chest, abdomen and pelvis with intravenous contrast. TECHNIQUE: Multiple contiguous axial images were obtained through the chest, abdomen and pelvis after the uneventful administration of intravenous contrast. All CT scans use one or more of the following dose optimizing techniques: automated exposure control, MA and/or KvP adjustment based on patient size and exam type or iterative reconstruction. HISTORY: Bloody stools. Concern for gastrointestinal bleed. COMPARISON: None available. FINDINGS: CT CHEST: The heart size is prominent. No pericardial effusion is present. Left pectoral pacemaker is in place. There is calcified aortic and coronary atherosclerotic plaque without aneurysm. There is no mediastinal, hilar, or axillary lymphadenopathy. The lungs demonstrate no pulmonary nodules or masses. Dependent opacities are seen in the lung bases. No central endobronchial obstructing lesions are identified. There are no pleural effusions or pneumothorax. The osseous structures demonstrate no acute abnormalities. CT ABDOMEN AND PELVIS: Scattered simple cortical cysts are seen in the kidneys. No solid renal mass. No hydronephrosis or renal calculi. The urinary bladder is decompressed with a Kim in place. The liver, spleen, pancreas, and adrenal glands have a normal appearance. There is no pathologically enlarged mesenteric or retroperitoneal adenopathy. The stomach is moderately distended with ingested contents. Mildly prominent fluid-filled loops of small bowel are seen, mostly in the right lower quadrant. There is no free fluid or free air. The osseous structures demonstrate no acute abnormalities. There is calcified aortic and iliac atherosclerotic plaque. There is no free air, loculated collection, or adenopathy in the pelvis. IMPRESSION: 1. No evidence of contrast extravasation within the bowel lumen to suggest active gastrointestinal bleed. 2. Fluid-filled mildly dilated loops of small bowel, suggestive of enteritis. No free fluid or free air. There is also distention of the stomach with ingested contents. 3. Small amount of dependent opacities in the lung bases. 4. Cardiomegaly. Agree with overnight report. Dictated by: Dictated on workstation # [id number]
--- NOTE | 2022-04-07 07:25 | Consultation - Surgery ---
TRUMAN OLVERA 04/07/22 0725: History of Present Illness History of Present Illness Patient Consulted On(polina/time) 04/07/22 07:16 Date Seen by Provider: Apr 07, 2022 History of Present Illness Corwin Wheatley is an 76yo male with a past medical history of Dementia, Stroke, Afib, COPD, HTN, GERD, DM, and Neuropathy presented to the ED last night due to fall, LOC for about 30-40 seconds, and decreased mentation upon awakening. Pt also after x-ray had bleeding from his mouth and pt also reported black tarry stool upon which surgery was consulted. Pt was laying down sleep during the interview. Upon awakening pt knew that he was in the hospital, but did not know why he was here; stated that it has been too many years. Pt currently has stomach discomfort but without nausea and vomiting. Head CT and Spine was negative for bleeds, fracture and dislocations. Per nurse upon admission, pressures where low with lowest systolic being around 80, but MAP 66 which she stated was within normal limits, so nothing was done with the pressures. Currently pt blood pressure is 105/55 (72). Pt currently is on 2L of oxygen with oxy mask. Allergies and Home Medications Allergies Coded Allergies: nitrofurantoin (Verified Allergy, Unknown, 08/22/21) Patient Home Medication List Cefdinir (Cefdinir) 300 Mg Capsule, 300 MG PO BID Prescribed by: ISAAC BENITEZ on 08/22/21 025 Ondansetron (Ondansetron Odt) 4 Mg Tab.rapdis, 4 MG PO Q8H PRN for NAUSEA/VOMITI NG Prescribed by: ISAAC BENITEZ on 08/22/21 0250 Past Tzdgsoe-Cxuket-Anonmd Hx Patient Social History Smoking Status: Never a Smoker Alcohol Use?: No Have you traveled recently?: No Surgeries History of Surgeries: Yes Surgeries: Appendectomy, Pacemaker, Prostatectomy Respiratory History of Respiratory Disorde: Yes Respiratory Disorders: Sleep Apnea, COPD Cardiovascular History of Cardiac Disorders: Yes Cardiac Disorders: Atrial Fibrillation, High Cholesterol, Hypertension Neurological History of Neurological Disord: Yes (CVA LEFT MIDDLE CEREBRAL ARTERY) Neurological Disorders: Dementia, Neuropathy, Stroke Reproductive System Hx Reproductive Disorders: No Sexually Transmitted Disease: No HIV/AIDS: No Genitourinary History of Genitourinary Disor: Yes (RENAL CYST; PROSTATECTOMY --PT DENIES CANCER, ONLY ENLARGED PROSTATE) Genitourinary Disorders: Benign Prostatic Hyperpl, Prostate Problems Gastrointestinal History of Gastrointestinal Di: Yes (S/P APPENDECTOMY) Gastrointestinal Disorders: Gastroesophageal Reflux Musculoskeletal History of Musculoskeletal Dis: Yes (GENERALIZED WEAKNESS) Endocrine History of Endocrine Disorders: Yes (PROTEIN-CALORIE MALNUTRITION) Endocrine Disorders: Diabetes, Non-Insulin dep HEENT History of HEENT Disorders: Yes (TEETH REMOVED/DENTURES IN PLACE) Psychosocial History of Psychiatric Problem: Yes (PSEUDOBULBAR AFFECT; S/P CVA; DEMENTIA; MOOD DISORDER) Behavioral Health Disorders: Sleep Difficulties, Anxiety, Depression Integumentary History of Skin or Integumenta: No Blood Transfusions History of Blood Disorders: No Family Medical History Significant Family History: No Pertinent Family Hx Review of Systems-General Constitutional: No chills, No fever EENTM: No eye pain, No vision loss Respiratory: cough; No dyspnea on exertion, No short of breath Cardiovascular: No chest pain, No edema, No palpitations Gastrointestinal: No abdominal pain, No constipation, No diarrhea; melena Genitourinary: No dysuria, No frequency Skin: No change in color, No change in hair/nails Psychiatric/Neurological: Headache; Denies Numbness, Denies Paresthesia, Denies Tingling Physical Exam-General Problems Physical Exam Vital Signs Vital Signs - First Documented 04/07/22 04/07/22 01:30 04:59 Temp 36.8 O2 Flow Rate 2.00 Capillary Refill : Less Than 3 Seconds General Appearance: no apparent distress HEENT: PERRL/EOMI Neck: non-tender, supple Respiratory: chest non-tender, lungs clear, normal breath sounds Cardiovascular: regular rate, rhythm, no edema, no JVD, no murmur Peripheral Pulses: 2+ Radial Pulses (R), 2+ Radial Pulses (L) Gastrointestinal: normal bowel sounds, non tender, soft Rectal: deferred Back: normal inspection Extremities: normal range of motion, non-tender, no calf tenderness Neurologic/Psychiatric: alert, normal mood/affect, other (Patient wasn't sure why he was present at the hospital ) Skin: normal color, warm/dry Data Review Labs Laboratory Tests 04/07/22 00:02: Influenza Type A (RT-PCR) Not Detected, Influenza Type B (RT-PCR) Not Detected, SARS-CoV-2 RNA (RT-PCR) Not Detected 04/07/22 00:10: Glucometer 151H 04/07/22 05:30: White Blood Count 17.0H, Red Blood Count 3.54L, Hemoglobin 11.1L, Hematocrit 33L , Mean Corpuscular Volume 94, Mean Corpuscular Hemoglobin 31, Mean Corpuscular Hemoglobin Concent 33, Red Cell Distribution Width 12.5, Platelet Count 262, Mean Platelet Volume 11.6, Immature Granulocyte % (Auto) 1, Neutrophils (%) (Auto) 83H, Lymphocytes (%) (Auto) 6L, Monocytes (%) (Auto) 9, Eosinophils (%) (Auto) 0, Basophils (%) (Auto) 0, Neutrophils # (Auto) 14.1H, Lymphocytes # (Au to) 1.0, Monocytes # (Auto) 1.5H, Eosinophils # (Auto) 0.0, Basophils # (Auto) 0.1, Immature Granulocyte # (Auto) 0.2H, Neutrophils % (Manual) 91, Lymphocytes % (Manual) 4, Monocytes % (Manual) 5, [place] Cells SLIGHT, Elliptocytes SLIGHT, Sodium Level 136, Potassium Level 4.5, Chloride Level 102, Carbon Dioxide Level 21, Anion Gap 13, Blood Urea Nitrogen 28H, Creatinine 0.78, Estimat Glomerular Filtration Rate 92, BUN/Creatinine Ratio 36, Glucose Level 171H, Lactic Acid Level 2.70*H, Calcium Level 8.7, Corrected Calcium 9.3, Phosphorus Level 4.2, Magnesium Level 1.8, Total Bilirubin 0.6, Aspartate Amino Transf (AST/SGOT) 13, Alanine Aminotransferase (ALT/SGPT) 19, Alkaline Phosphatase 49, Total Protein 5.5L, Albumin 3.[address] CHEST/ABDOMEN/PELVIS W IMPRESSION: 1. No evidence of contrast extravasation within the bowel lumen to suggest active gastrointestinal bleed. 2. Fluid-filled mildly dilated loops of small bowel, suggestive of enteritis. No free fluid or free air. There is also distention of the stomach with ingested contents. 3. Small amount of dependent opacities in the lung bases. 4. Cardiomegaly. CT THORACIC/LUMBAR SPINE WO PROCEDURE: CT thoracic and lumbar spine without contrast. TECHNIQUE: Multiple contiguous axial images were obtained through the thoracic and lumbar spine without the use of intravenous contrast. Sagittal and coronal reformations were then performed. All CT scans use one or more of the following dose optimizing techniques: automated exposure control, MA and/or KvP adjustment based on a patient size and exam type, or iterative reconstruction. INDICATION: Fall. Mid and lower back pain. COMPARISON: None. FINDINGS: No acute fracture or dislocation is seen in the thoracic and lumbar spine. There is generalized straightening of the thoracic and lumbar spine. Scattered bone islands are seen. No suspicious osseous lesions. Schmorl's nodes are scattered in the thoracic and lumbar spine. No evidence of bony retropulsion. No acute spinal canal stenosis. No high density material is seen within the spinal canal. The included lungs demonstrate dependent atelectasis bilaterally. The paraspinal soft tissues are unremarkable. IMPRESSION: 1. No acute fracture or dislocation in the thoracic and lumbar spine. Agree with overnight report. PELVIS 1 TO 2 VIEWS CLINICAL HISTORY: Pelvic pain. Fall. COMPARISON: None. TECHNIQUE: Single view of the pelvis is obtained. FINDINGS: There is no acute fracture or dislocation of the pelvis and bilateral hips. Alignment is anatomic. The imaged joint spaces are preserved. No focal osseous lesions. Surgical clips are seen overlying the pelvis. IMPRESSION: 1. No acute fracture or dislocation in the pelvis and bilateral hips. CT HEAD/FACE/CERVICAL WO PROCEDURE: CT head, face, and cervical spine without contrast. TECHNIQUE: Multiple contiguous axial images were obtained through the head, neck, and facial bones without the use of intravenous contrast. Sagittal and coronal reformations through the cervical spine and facial bones were also performed. Auto Exposure Controls were utilized during the CT exam to meet ALARA standards for radiation dose reduction. INDICATION: Fall. Head and neck pain. COMPARISON: None. FINDINGS: CT head: No large acute territorial ischemia, mass, or hemorrhage. No midline shift or mass effect. Old infarct is seen in the left frontal lobe. Decreased attenuation is seen in the periventricular and subcortical white matter. The ventricles and cortical sulci are prominent. The basilar cisterns are patent and unremarkable. The calvarium is intact. CT face: No acute facial fractures are visualized. The patient is edentulous. The mandible, zygomatic arches, and pterygoid plates are intact. The bilateral TMJ demonstrate normal articulation. No nasal bone fractures. The bony nasal septum is slightly deviated to the right without fracture. Retained secretions are seen in the bilateral maxillary sinuses. The globes and orbits are symmetric and unremarkable. No evidence of orbital rim fracture. CT cervical spine: No acute fracture or dislocation is seen in the cervical spine. No focal osseous lesions. There is straightening of the cervical spine. Vertebral body heights are well-maintained. The craniocervical junction is well-maintained. Mild degenerative changes are seen in the cervical spine with disc osteophyte complexes and uncovertebral arthropathy. Soft tissues of the neck are unremarkable. IMPRESSION: 1. No hemorrhage or focal intra-axial mass. No CT evidence of large acute territorial ischemia. 2. No acute fracture or dislocation in the cervical spine. 3. No acute facial fractures. Agree with overnight report. CHEST 1 VIEW, AP/PA ONLY EXAMINATION: Chest 1 view HISTORY: Fall. Chest pain. COMPARISON: 08/22/2021. FINDINGS: The lung volumes are normal. No focal consolidation is seen. No large pleural effusion or pneumothorax is seen. The cardiomediastinal silhouette is normal in size and contour. Left pectoral pacemaker is partially visualized. There is calcified aortic atherosclerotic plaque. No acute osseous abnormality is seen. IMPRESSION: 1. No acute pleuroparenchymal process. Assessment/Plan Assessment/Plan Assessment/Plan Syncopal Episode GI Bleed Monitor hemoglobin; Decreased from 12.1 to 11.1 Consider EGD for potential Gastric Bleed Supportive Care [facility] ZEYNEP SHARMA DO 04/07/22 1140: History of Present Illness History of Present Illness Time Seen by Provider: 07:55 History of Present Illness 76 year old male on anticoagulation. Fell last night with loss of consciousness. Patient has been having some syncope episodes. Patient also with epigastric abdominal pain in the last week or so. Mild discomfort. No radiation of pain. Patient had dark stool in and hematemesis in ed. Again having coffee ground/bloody emesis this morning. He has been on Eliquis which was reversed in the emergency department. CT scans reviewed, no acute issues. Allergies and Home Medications Allergies Coded Allergies: nitrofurantoin (Verified Allergy, Unknown, 08/22/21) Patient Home Medication List Home Medication List Reviewed: Yes (Eliquis) Cefdinir (Cefdinir) 300 Mg Capsule, 300 MG PO BID Prescribed by: ISAAC BENITEZ on 08/22/21 0250 Ondansetron (Ondansetron Odt) 4 Mg Tab.rapdis, 4 MG PO Q8H PRN for NAUSEA/VOMITING Prescribed by: ISAAC BENITEZ on 08/22/21 0250 Past Uxgcgan-Nyelmp-Pbrpzo Hx Reviewed Nursing Assessment Reviewed/Agree w Nursing PMH: Yes Family Medical History Significant Family History: No Pertinent Family Hx Review of Systems-General Constitutional: No chills, No fever EENTM: No eye pain, No vision loss Respiratory: cough; No dyspnea on exertion, No short of breath Cardiovascular: No chest pain Gastrointestinal: abdominal pain, melena, nausea, vomiting (coffee ground) Genitourinary: No dysuria, No frequency Musculoskeletal: No back pain, No joint pain Skin: No change in color, No change in hair/nails Psychiatric/Neurological: Denies Anxiety, Denies Depressed, Denies Emotional Problems All Other Systems Reviewed Negative Unless Noted: Yes (Negative excepted noted.) Physical Exam-General Problems Physical Exam General Appearance: WD/WN, no apparent distress HEENT: PERRL/EOMI, normal ENT inspection Neck: non-tender, supple Respiratory: chest non-tender, no respiratory distress, no accessory muscle use Cardiovascular: regular rate, rhythm, no JVD Gastrointestinal: non tender, soft Rectal: deferred Back: normal inspection, no CVA tenderness Extremities: normal range of motion, non-tender Neurologic/Psychiatric: alert, normal mood/affect, other (seems to have a little confusion compared to earlier, seen with nurses) Skin: normal color, warm/dry Lymphatic: no adenopathy Assessment/Plan Assessment/Plan Assessment/Plan synopal episode Gi bleed likely upper chcf anticogaulation on Eliquis- reversed in ed. hold anticoagulation Will obtain consent for EGD today since still having hematemesis. Protoinx Follow hgb and transfuse prbc as needed. No traumatic injuries Some new confusion will get state ct head to reevaluate. Supervisory-Addendum Brief Verification & Attestation Participated in pt care: history, MDM, physical Personally performed: exam, history, MDM, supervision of care Care discussed with: Medical Student Procedures: n/a Results interpretation: Verified all documentation Verification and Attestation of Medical Student E/M Service A medical student performed and documented this service in my presence. I reviewed and verified all information documented by the medical student and made modifications to such information, when appropriate. I personally performed the physical exam and medical decision making. Zeynep Sharma, Apr 07, 2022,11:40 TRUMAN OLVERA Apr 07, 2022 07:25 ZEYNEP SHARMA DO Apr 07, 2022 11:40
--- NOTE | 2022-04-07 08:52 | Diagnostic Imaging Report ---
PROCEDURE: CT head without contrast. TECHNIQUE: Multiple contiguous axial images were obtained through the brain without the use of intravenous contrast. Auto Exposure Controls were utilized during the CT exam to meet ALARA standards for radiation dose reduction. INDICATION: Altered mental status. Comparison is made prior CT earlier same day. FINDINGS: Large area of encephalomalacia left frontal lobe is again noted consistent with prior infarct. No sulcal effacement or midline shift is identified. No acute intra-axial or extra-axial hemorrhage is detected. Cisterns are patent. Visualized paranasal sinuses again demonstrate mucosal thickening bilateral maxillary sinuses. IMPRESSION: Chronic changes, similar to the head CT earlier the same day. No acute intracranial process is detected. Dictated by: Dictated on workstation # [id number]
[2022-04-07] MEDS ORDERED: NS IV 1000 ML 1,000 ML IV SCH (09:30)
--- NOTE | 2022-04-07 10:50 | Tele-ICU Consult ---
History of Present Illness History of Present Illness Date Seen by Provider: Apr 07, 2022 Time Seen by Provider: 10:49 Date of Admission (Tele-ICU Physician , Progress Note, seen as consult by Dr Melgar 4.25 am ) Service provided via interactive audio and video [employer] system to a patient admitted to ICU bed in [facility]. Available chart/ vitals / labs / Images reviewed Video assessment done using teleICU camera, rest of exam as per RN Discussed with RN Events overnight : Afebrile hemodynamically stable Respiratory - I/O = Drips: Pressors- no Consultants: Hospital course: PATIENT WAS KARINA OVERNIGHT BY DR MELGAR Patient is seen today due to persistent hypotension , GIB and mental status chaneg and new A/P GIB, predumed Upper ( hematemesis 0 - on PP and octreotide gtt - Sx consulted for EGD -Monitor for signs of organ dysfunction due to anemia -Fluid resuscitation, no need for vasopressors at present -ollow levels HB Hypotension on presentation - still low BP - additional fluid resuscitation S/p fall - ? 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 reactive - UA neg , panCT - no suspected sourse , + atelectasis - off ABX s/p pacemeker - ? cardiac history h/o CVA , mild dementia - follow COPD , ANGELITO - as per chart - stable now , will need more information Lines : periph , (Central Line Necessity Reviewed) Kim: 04/06 OG: Nutrition: npo Analgesia: Anxiety/ delirium VTE Prophylaxis: scd Stress Ulcer Prophylaxis: ppi Plans in collaboration with bedside consultants and IM MDs. Discussed with RN to reach out if any questions or concerns A total of 33 minutes of critical care time was devoted to this patient today, required to treat and/or prevent further deterioration of critical care condition ( as above ) . I am remotely monitoring this patient from another state. I am unable to do the bedside exam, and history/physical and pertinent information is taken from other notes in the computer and bedside staff. Allergies and Home Medications Allergies Coded Allergies: nitrofurantoin (Verified Allergy, Unknown, 08/22/21) Home Medications Cefdinir 300 Mg Capsule, 300 MG PO BID Prescribed by: ISAAC BENITEZ on 08/22/21 0250 Ondansetron 4 Mg Tab.rapdis, 4 MG PO Q8H PRN for NAUSEA/VOMITING Prescribed by: ISAAC BENITEZ on 08/22/21 0250 Past Medical/Social/Family Hx Patient Social History Tobacco Use?: No Smoking Status: Never a Smoker Use of E-Cig and/or Vaping dev: No Alcohol Use?: No Pt stated abuse/neglect: No Immunizations Up To Date Influenza Vaccine Up-to-Date: Yes; Up-to-Date Current Status Advance Directives: Yes Advance Directive Location: [facility] Communicates: Verbally Primary Language: Danish Preferred Spoken Language: Danish Is interpretation needed?: No Implanted or Applied Medical D: Pacemaker Review of Systems Constitutional: see HPI Focused Exam Lactate Level 04/07/22 05:30: Lactic Acid Level 2.70*H 04/07/22 07:40: Lactic Acid Level 2.59*H 04/07/22 09:40: Lactic Acid Level 3.66*H Height, Weight, BMI Height: '" Weight: lbs. oz. kg; 32.34 BMI Method: Lactic Acid Level Laboratory Tests Test 04/07/22 07:40 04/07/22 09:40 Lactic Acid Level 2.59 MMOL/L (0.50-2.00) *H 3.66 MMOL/L (0.50-2.00) *H Exam Exam Patient acknowledged, consented, and participated in this virtual visit which was conducted using real time audio/video Vital Signs Date Time Temp Pulse Resp B/P (MAP) Pulse Ox O2 Delivery O2 Flow Rate FiO2 04/07/22 10:00 98 20 91/67 (75) 98 Room Air 04/07/22 09:00 106 19 109/59 (76) 96 Room Air 04/07/22 08:00 123 26 68/48 (55) 92 Room Air 04/07/22 08:00 95 Room Air 04/07/22 08:00 37.1 04/07/22 07:35 Room Air 04/07/22 07:23 112 04/07/22 07:00 86 28 96/53 (67) 96 OxyMask 2.00 04/07/22 06:00 86 19 105/55 (72) 97 OxyMask 2.00 04/07/22 05:45 85 15 86/40 (55) 95 OxyMask 2.00 04/07/22 05:15 85 18 89/45 (60) 95 OxyMask 2.00 04/07/22 04:59 36.8 81 13 102/67 (79) 99 OxyMask 2.00 04/07/22 04:54 99 OxyMask 2.00 04/07/22 04:45 79 12 102/67 (79) 98 OxyMask 2.00 04/07/22 04:43 80 04/07/22 04:36 74 97 04/07/22 04:30 77 12 112/58 (76) 98 OxyMask 2.00 04/07/22 04:12 74 18 102/44 97 OxyMask 2.00 04/07/22 01:30 OxyMask 2.00 04/06/22 23:53 Room Air 04/06/22 23:53 79 16 97/55 (69) 96 Room Air I & O 04/07/22 07:00 Intake Total 1101 ml Output Total 225 ml Balance 876 ml Height & Weight Height: '" Weight: lbs. oz. kg; 32.34 BMI Method: General Appearance: No Apparent Distress, WD/WN, Other (SOMEWHAT LETHARGIC, DROWSY--STATES HE IS TIRED AND JUST WANTS TO BE ABLE TO GO TO SLEEP) HEENT: PERRL/EOMI, TMs Normal, Normal ENT Inspection, Pharynx Normal Neck: Full Range of Motion, Normal Inspection, Non Tender, Supple Respiratory: Normal Breath Sounds, No Accessory Muscle Use, No Respiratory Distress Cardiovascular: No Edema, No JVD, No Murmur, Normal Peripheral Pulses, Irregularly Irregular Capillary Refill: Less Than 3 Seconds Peripheral Pulses: 2+ Radial Pulses (R), 2+ Radial Pulses (L) Gastrointestinal: normal bowel sounds, non tender, soft Extremity: Normal Capillary Refill, Normal Inspection, Normal Range of Motion, Non Tender, No Calf Tenderness, No Pedal Edema Neurologic/Psychiatric: Alert, Oriented x3 (BUT MENTATION IS SLIGHTLY SLOW AND HAS FLAT AFFECT), No Motor/Sensory Deficits, recruitment internship II-XII Norm as Tested Skin: Normal Color, Warm/Dry; No Ecchymosis, No Petechia, No Rash; Other (NO EXTERNAL EVIDENCE OF TRAUMA ANYWHERE) Results Lab Laboratory Tests 04/06/22 00:00 04/07/22 05:30 Assessment/Plan Assessment/Plan 1 INDU MEDINA MD Apr 07, 2022 10:50
[2022-04-07 12:08] LABS: HEMATOCRIT 27 % (40-54); HEMOGLOBIN 8.9 g/dL (13.3-17.7); MEAN CORPUSCULAR HEMOGLOBIN 32 pg (25-34); MEAN CORPUSCULAR HGB CONC 34 g/dL (32-36); MEAN CORPUSCULAR VOLUME 95 fL (80-99); MEAN PLATELET VOLUME 11.4 fL (9.0-12.2); PLATELET COUNT 245 10^3/uL (130-400); WHITE BLOOD COUNT 15.6 10^3/uL (4.3-11.0)
[2022-04-07] MEDS ORDERED: LACTATED RINGERS 1,000 ML IV STA (12:22)
[2022-04-07] MEDS ORDERED: HURRICAINE EXT TUBE (BENZOCAINE) XX PRN (12:30)
--- NOTE | 2022-04-07 12:35 | History & Physical-Hospitalist ---
[facility] 04/07/22 1235: History of Present Illness HPI/Chief Complaint Corwin is 76y male with PMH of dementia, stroke, Afib, COPD, HTN, GERD, DM, and neuropathy on long-term anticoagulation who presented to the ED last night due to fall, LOC for about 30-40 seconds, and decreased mentation upon awakening. Reportedly, pt also had bleeding from his mouth after x-ray and pt had reported black tarry stool so surgery was consulted. CT head and spine 04/06 was negative for bleeds, fracture and dislocations. CXR and pelvic x-ray without acute proces ses. Repeat Head CT today ordered for confusion with no acute intracranial process. CT chest/abdomen/pelvis today without evidence of active GI bleed. There were fluid-filled mildly dilated loops of small bowel, suggestive of enteritis. No free fluid or free air. There was also distention of the stomach with ingested contents. EKG today with afib. Pt is on 2L of oxygen with oxy mask. He has been on Eliquis which was reversed in the emergency department. Patient is not currently aware of why he is in the hospital and is unable to answer questions as he is somnolent. States he is not in any pain. No evidence of traumatic injuries. Patient again having coffee ground/bloody emesis today. Source: patient, RN/MD Exam Limitations: clinical condition Date Seen 04/07/22 Attending Physician [place] PCP Admitting Physician: Zenobia Gutierrez DO Attending Physician: Zenobia Gutierrez DO Referring Physician Date of Admission Apr 07, 2022 at 01:30 Home Medications & Allergies Home Medications Reviewed patient Home Medication Reconciliation performed by pharmacy medication reconciliations pharmacist technician and/or nursing. Patients Allergies have been reviewed. Allergies Allergies Coded Allergies nitrofurantoin (Verified Allergy, Unknown, 08/22/21) Past Sjxkffe-Ozysgm-Ktgalf Hx Patient Social History Tobacco Use?: No Smoking Status: Never a Smoker Use of E-Cig and/or Vaping dev: No Alcohol Use?: No Pt feels they are or have been: No Current Status Advance Directives: Yes Advance Directive Location: [facility] Communicates: Verbally Primary Language: Congolese Preferred Spoken Language: Congolese Is interpretation needed?: No Implanted or Applied Medical D: Pacemaker Past Medical History Surgeries: Appendectomy, Pacemaker, Prostatectomy Sleep Apnea, COPD Atrial Fibrillation, High Cholesterol, Hypertension Dementia, Neuropathy, Stroke Sexually Transmitted Disease: No HIV/AIDS: No Benign Prostatic Hyperpl, Prostate Problems Gastroesophageal Reflux Diabetes, Non-Insulin dep Sleep Difficulties, Anxiety, Depression Blood Disorders: No Family Medical History No Pertinent Family Hx Review of Systems ROS-Unable to Obtain: Unable to obtain 2/2 patient condition Physical Exam Physical Exam Vital Signs Vital Signs - First Documented 04/07/22 04/07/22 01:30 04:59 Temp 36.8 O2 Flow Rate 2.00 Capillary Refill : Less Than 3 Seconds Height, Weight, BMI Height: '" Weight: lbs. oz. kg; 32.34 BMI Method: General Appearance: No Apparent Distress, WD/WN, Chronically ill, Other (somnolent, hematemesis in bell on presentation) HEENT: PERRL/EOMI, Pharynx Normal Neck: Full Range of Motion, Normal Inspection Respiratory: Chest Non Tender, Lungs Clear, Normal Breath Sounds, No Accessory Muscle Use, No Respiratory Distress Cardiovascular: No Edema, No Gallop, No JVD, No Murmur, Normal Peripheral Pulses, Irregularly Irregular Gastrointestinal: Normal Bowel Sounds, Non Tender, Soft Extremity: Normal Capillary Refill, Normal Inspection, Non Tender, No Calf Tenderness, No Pedal Edema Neurologic/Psychiatric: Disoriented (pt is unsure why he is in hospital), Other (flat affect) Skin: Normal Color, Warm/Dry Results Results/Procedures Labs Laboratory Tests 04/06/22 00:00 04/07/22 05:30 04/07/22 11:58 Patient resulted labs reviewed. Assessment/Plan Admission Diagnosis AMS s/p fall Admission Status: Observation Assessment and Plan AMS S/p fall- presumed syncope Hypotension Hematemesis- presume upper GI bleed Group Home anticoagulation Chronic Afib Anemia Leukocytosis h/o stroke Imaging reviewed-no acute processes Fluid resuscitation as needed General surgery consulted- plan EGD to assess for upper GI bleed Protonix and octreotide Hold anticoagulation Track and trend H&H, transfuse as needed Admit to ICU ZENOBIA GUTIERREZ DO 04/08/22 0505: History of Present Illness Source: patient, RN/MD Exam Limitations: clinical condition Time Seen by a Provider: 10:00 Review of Systems Constitutional: see HPI Physical Exam Physical Exam General Appearance: No Apparent Distress, Chronically ill Respiratory: Lungs Clear, Normal Breath Sounds Assessment/Plan Admission Diagnosis Syncope Suspected GI bleeding Plan: Supportive care Supervisory-Addendum Brief Verification & Attestation Participated in pt care: history, MDM, physical Personally performed: exam, history, MDM, supervision of care Care discussed with: Medical Student Procedures: n/a Results interpretation: Verified all documentation Verification and Attestation of Medical Student E/M Service A medical student performed and documented this service in my presence. I reviewed and verified all information documented by the medical student and made modifications to such information, when appropriate. I personally performed the physical exam and medical decision making. Zenobia Gutierrez Apr 08, 2022,05:05 DARLIN OLIVA Apr 07, 2022 12:35 ZENOBIA GUTIERREZ DO Apr 08, 2022 05:05
[2022-04-07] MEDS ORDERED: PROPOFOL INJECTION 50 ML IV ONE (12:37)
[2022-04-07] MEDS ORDERED: KETAMINE 50 MG/5 ML SYRINGE ONE (12:37)
[2022-04-07] MEDS ORDERED: EPINEPHrine INJECTION 1 MG/ML AMP ONE (12:48)
[2022-04-07] MEDS ORDERED: EPINEPHrine INJECTION 1 MG/ML AMP INJ PRN (12:52)
[2022-04-07] MEDS: EPINEPHrine INJECTION 1 MG/ML AMP IV PRN ×2 (12:52→13:46)
--- NOTE | 2022-04-07 13:01 | Anesthesia-General Post-Op ---
MAC Patient Condition Mental Status/LOC: Same as Preop Cardiovascular: Satisfactory Nausea/Vomiting: Absent Respiratory: Satisfactory Pain: Controlled Complications: Absent Post Op Complications Complications None Follow Up Care/Instructions Patient Instructions None needed. Anesthesiology Discharge Order Discharge Order Patient is doing well, no complaints, stable vital signs, no apparent adverse anesthesia problems. No complications reported per nursing. KATHYA DE SANTIAGO CRNA Apr 07, 2022 13:01
[2022-04-07] MEDS ORDERED: PHENYLEPHRINE INJ 10 MG/ML (FOR PYXIS KITS ONLY) IV ONE (13:45)
[2022-04-07] MEDS ORDERED: PHENYLEPHRINE DRIP 250 ML IV ONE (13:45)
[2022-04-07] MEDS ORDERED: NS (IVPB) 250 ML ONE (13:45)
[2022-04-07] MEDS ORDERED: NS IV 500 ML 500 ML IV SCH (13:45)
[2022-04-07] MEDS: OCTREOTIDE INJECTION 500 MCG in NS (IVPB) 99 ML IV SCH ×3 (13:52→23:30)
[2022-04-07] MEDS: PHENYLEPHRINE DRIP 250 ML IV SCH (15:43)
[2022-04-08] MEDS: NS IV 1000 ML 1,000 ML IV SCH ×3 (01:31→17:24)
[2022-04-08] MEDS: PHENYLEPHRINE DRIP 250 ML IV SCH (03:05)
[2022-04-08] MEDS ORDERED: NS IV 500 ML 500 ML IV PRN (04:30)
[2022-04-08 04:54] LABS: BASOPHILS # (AUTO) 0.1 10^3/uL (0.0-0.1); BASOPHILS % (AUTO) 0 % (0-10); EOSINOPHILS % (AUTO) 0 % (0-10); HEMATOCRIT 23 % (40-54); HEMOGLOBIN 7.9 g/dL (13.3-17.7); LYMPHOCYTES # (AUTO) 1.8 10^3/uL (1.0-4.0); LYMPHOCYTES % (AUTO) 11 % (12-44); MEAN CORPUSCULAR HEMOGLOBIN 32 pg (25-34); MEAN CORPUSCULAR HGB CONC 34 g/dL (32-36); MEAN CORPUSCULAR VOLUME 94 fL (80-99); MEAN PLATELET VOLUME 11.4 fL (9.0-12.2); MONOCYTES # (AUTO) 1.8 10^3/uL (0.0-1.0); MONOCYTES % (AUTO) 11 % (0-12); NEUTROPHILS # (AUTO) 12.6 10^3/uL (1.8-7.8); NEUTROPHILS % (AUTO) 77 % (42-75); PLATELET COUNT 195 10^3/uL (130-400); WHITE BLOOD COUNT 16.3 10^3/uL (4.3-11.0)
[2022-04-08 05:06] LABS: ALBUMIN 2.7 GM/DL (3.2-4.5)
[2022-04-08 05:07] LABS: POTASSIUM 4.2 MMOL/L (3.6-5.0)
[2022-04-08 05:08] LABS: CALCIUM 7.9 MG/DL (8.5-10.1)
[2022-04-08 05:09] LABS: TOTAL PROTEIN 4.5 GM/DL (6.4-8.2)
[2022-04-08 05:11] LABS: BILIRUBIN,TOTAL 0.7 MG/DL (0.1-1.0)
[2022-04-08 05:12] LABS: PHOSPHORUS 2.7 MG/DL (2.3-4.7)
[2022-04-08 05:13] LABS: CREATININE SERUM 0.7 MG/DL (0.60-1.30)
--- NOTE | 2022-04-08 05:14 | OPERATIVE REPORT ---
DATE OF SERVICE: 04/07/2022 PREOPERATIVE DIAGNOSIS: Gastrointestinal bleed. POSTOPERATIVE DIAGNOSES: Gastric ulcers, upper gastrointestinal bleed. SURGEON: Zeynep Steel DO ANESTHESIA: Per CIVIL LABORATORY TECHNICIAN. ESTIMATED BLOOD LOSS: None. COMPLICATIONS: None. INDICATIONS: The patient is a 76-year-old male who presented for upper GI bleed. He has been having hematemesis. Consent was obtained for procedure. PROCEDURE: Esophagogastroduodenoscopy with injection of lidocaine with epinephrine to control bleeding at gastric ulcer. DESCRIPTION OF PROCEDURE: The patient was taken to endoscopy suite, placed in the left lateral recumbent position. Timeout was performed. Scope was inserted in the mouth, down the esophagus, stomach, which we encountered a significant clot burden. This was continued to be irrigated and suctioned. Still significant burden of clot in the cardia portion, which was unable to be suctioned. In the body along the greater curvature noting a significant ulceration, some scant bleeding from this area. Scope was then slowly inserted into the duodenum, which could be visualized very well due to old clot. Scope was then retracted back in 4 areas surrounding the area of bleeding ulceration, 1 mL of 1% lidocaine with epinephrine was injected in each location. Hemostasis achieved. I tried to irrigate and suction further the more clot, but unsuccessful. The scope was retroflexed noting no other pathology, still limited visualization. Scope was returned to its normal position and slowly withdrawn to distal esophagus, which had normal appearance. Scope was slowly retracted back to completely remove. RECOMMENDATIONS: We will continue to follow hemoglobin and transfuse as needed. May need further endoscopy for reevaluation. If it does not need one during hospital stay, would recommend repeating on an outpatient basis just to confirm healing biopsies of the areas, this was not biopsied at this time due to the patient Eliquis, even though reversed, concern for further bleeding. We will continue on Protonix. Further recommendations pending hospital course. Job ID: [id number] DocumentID: [id number] Dictated Date: 04/07/2022 19:38:07 Tobacco Sample Puller Date: 04/08/2022 05:12:00 Dictated By: ZEYNEP STEEL DO
[2022-04-08 05:15] LABS: MAGNESIUM 1.6 MG/DL (1.6-2.4)
[2022-04-08] MEDS: inSUlin ASPART (NovoLOG) 1 UNIT/0.01 ML (CHARGE PER UNIT) SC SCH ×3 (05:57→19:00)
[2022-04-08] MEDS ORDERED: KCL 20 MEQ TAB (K-DUR) PO SCH (06:00)
[2022-04-08] MEDS ORDERED: MAGNESIUM 1 GM/100 ML IVPB 100 ML IV SCH (06:00)
[2022-04-08] MEDS ORDERED: POTASSIUM CL 10MEQ/50ML IVPB 50 ML IV SCH (06:00)
[2022-04-08] MEDS: PANTOPRAZOLE INJECTION 200 MG in NS (IVPB) 100 ML IV SCH (06:10)
[2022-04-08] MEDS: MAGNESIUM 1 GM/100 ML IVPB 100 ML IV SCH ×2 (06:14→06:15)
--- NOTE | 2022-04-08 07:36 | Progress Note - Surgery ---
[facility] 04/08/22 0736: Subjective Date Seen by a Provider: Apr 08, 2022 Subjective/Events-last exam Pt laying in bed during the interview. Pt appears to be doing better than yesterday including his mental status; pt was oriented to self and place. Pt is on 2L oxygen during the night, but yesterday before his episode of hematemesis his oxygen saturation was with in normal range. Pt did have bowel movement last night and had a darker consistency. Review of Systems General: No Chills, No Night Sweats HEENT: No Head Aches, No Visual Changes, No Eye Pain Pulmonary: No Dyspnea; Cough Cardiovascular: No: Chest Pain, Palpitations, Edema Gastrointestinal: Abdominal Pain; No: Nausea, Vomiting, Diarrhea, Constipation Neurological: No: Weakness, Numbness Focused Exam Lactate Level 04/07/22 07:40: Lactic Acid Level 2.59*H 04/07/22 09:40: Lactic Acid Level 3.66*H 04/07/22 11:58: Lactic Acid Level 3.55*H Objective Exam Vital Signs Date Time Temp Pulse Resp B/P (MAP) Pulse Ox O2 Delivery O2 Flow Rate FiO2 04/08/22 06:00 85 28 128/47 (74) 99 Nasal Cannula 2.00 04/08/22 05:00 92 122/64 (83) 97 Nasal Cannula 2.00 04/08/22 04:00 97 Nasal Cannula 2.00 04/08/22 04:00 37.0 04/08/22 04:00 79 124/68 (86) 98 Nasal Cannula 2.00 04/08/22 03:05 90 129/94 04/08/22 03:00 92 122/60 (80) 97 Nasal Cannula 2.00 04/08/22 02:00 96 127/60 (82) 98 Nasal Cannula 2.00 04/08/22 01:00 90 124/68 (86) 98 Nasal Cannula 2.00 04/08/22 01:00 90 04/08/22 00:00 90 121/59 (79) 96 Nasal Cannula 2.00 04/07/22 23:35 97 Nasal Cannula 2.00 04/07/22 23:22 37.3 04/07/22 23:00 85 131/52 (78) 98 Nasal Cannula 2.00 04/07/22 22:00 97 119/70 (86) 97 Nasal Cannula 2.00 04/07/22 21:21 Nasal Cannula 2.00 04/07/22 21:11 Room Air 04/07/22 21:00 93 121/64 (83) 92 OxyMask 2.00 04/07/22 20:00 86 126/81 (96) 98 OxyMask 2.00 04/07/22 19:57 37.6 04/07/22 19:55 100 OxyMask 2.00 04/07/22 19:52 OxyMask 2.00 04/07/22 19:00 80 131/95 (107) 100 OxyMask 5.00 04/07/22 19:00 94 04/07/22 18:00 101 136/89 (105) 100 OxyMask 5.00 04/07/22 17:31 37.0 97 20 129/94 100 OxyMask 5.00 04/07/22 17:00 97 26 119/69 (86) 100 OxyMask 5.00 04/07/22 16:00 91 16 126/69 (88) 100 OxyMask 5.00 04/07/22 15:50 36.8 04/07/22 15:48 37.2 83 18 117/72 97 OxyMask 5.00 04/07/22 15:35 100 OxyMask 5.00 04/07/22 15:28 37.6 85 19 118/77 97 OxyMask 5.00 04/07/22 15:00 91 9 109/65 (80) 100 OxyMask 5.00 04/07/22 14:00 91 29 124/72 (89) 95 OxyMask 5.00 04/07/22 13:45 95 24 90/71 (77) 88 OxyMask 5.00 04/07/22 13:30 100 19 69/50 (56) 87 OxyMask 5.00 04/07/22 13:15 101 22 94 OxyMask 10.00 04/07/22 13:10 108 22 94 OxyMask 10.00 04/07/22 13:05 97 22 94 OxyMask 10.00 04/07/22 12:19 80 04/07/22 12:15 89 19 110/73 (85) 97 Room Air 04/07/22 12:00 97 Room Air 04/07/22 11:52 37.2 04/07/22 11:30 73 12 118/64 (82) 96 Room Air 04/07/22 11:00 78 9 121/77 (92) 96 Room Air 04/07/22 10:00 98 20 91/67 (75) 98 Room Air 04/07/22 09:00 106 19 109/59 (76) 96 Room Air 04/07/22 08:00 123 26 68/48 (55) 92 Room Air 04/07/22 08:00 95 Room Air 04/07/22 08:00 37.1 04/07/22 07:35 Room Air I & O 04/08/22 07:00 Intake Total 4400 ml Output Total 1725 ml Balance 2675 ml Capillary Refill : Less Than 3 Seconds General Appearance: No Apparent Distress, Chronically ill HEENT: PERRL/EOMI, Pharynx Normal Neck: Full Range of Motion, Normal Inspection Respiratory: Lungs Clear, Normal Breath Sounds Cardiovascular: No Edema, No Gallop, No JVD, No Murmur, Normal Peripheral Pulses, Irregularly Irregular Peripheral Pulses: 2+ Radial Pulses (R), 2+ Radial Pulses (L) Gastrointestinal: soft, tenderness (RUQ) Extremity: Normal Capillary Refill, Normal Inspection, Non Tender, No Calf Tenderness, No Pedal Edema Neurologic/Psychiatric: Alert, Normal Mood/Affect, Disoriented Skin: Normal Color, Warm/Dry Results Lab Laboratory Tests 04/07/22 07:40: Lactic Acid Level 2.59*H 04/07/22 09:40: Lactic Acid Level 3.66*H 04/07/22 11:44: Glucometer 155H 04/07/22 11:58: Lactic Acid Level 3.55*H, White Blood Count 15.6H, Red Blood Count 2.78L, Hemoglobin 8.9L, Hematocrit 27L, Mean Corpuscular Volume 95, Mean Corpuscular Hemoglobin 32, Mean Corpuscular Hemoglobin Concent 34, Red Cell Distribution Width 12.7, Platelet Count 245, Mean Platelet Volume 11.4 04/07/22 17:40: Glucometer 155H 04/07/22 23:08: Glucometer 155H 04/08/22 04:38: White Blood Count 16.3H, Red Blood Count 2.48L, Hemoglobin 7.9L, Hematocrit 23L, Mean Corpuscular Volume 94, Mean Corpuscular Hemoglobin 32, Mean Corpuscular Hemoglobin Concent 34, Red Cell Distribution Width 13.1, Platelet Count 195, Mean Platelet Volume 11.4, Immature Granulocyte % (Auto) 0, Neutrophils (%) (Auto) 77H, Lymphocytes (%) (Auto) 11L, Monocytes (%) (Auto) 11, Eosinophils (%) (Auto) 0, Basophils (%) (Auto) 0, Neutrophils # (Auto) 12.6H, Lymphocytes # (Auto) 1.8, Monocytes # (Auto) 1.8H, Eosinophils # (Auto) 0.0, Basophils # (Auto) 0.1, Immature Granulocyte # (Auto) 0.1, Sodium Level 139, Potassium Level 4.2, Chloride Level 106, Carbon Dioxide Level 24, Anion Gap 9, Blood Urea Nitrogen 32H, Creatinine 0.70, Estimat Glomerular Filtration Rate 95, BUN/Creatinine Ratio 46, Glucose Level 158H, Calcium Level 7.9L, Corrected Calcium 8.9, Phosphorus Level 2.7, Magnesium Level 1.6, Total Bilirubin 0.7, Aspartate Amino Transf (AST/SGOT) 11, Alanine Aminotransferase (ALT/SGPT) 15, Alkaline Phosphatase 31L, Total Protein 4.5L, Albumin 2.7L Assessment/Plan Assessment/Plan Assessment/Plan synopal episode Gi bleed likely upper halfway anticogaulation on Eliquis- reversed in ed. hold anticoagulation. Continue Protoinx Follow hgb and transfuse prbc as needed. Pt's hemoglobin was 7.9 this morning which is decreased from yesterday's 8.9 Pt is more oriented today than yesterday. continue to monitor for new onset of confusion. SAMUEL STELE DO 04/08/22 1607: Subjective Subjective/Events-last exam Patient not having any further hematemesis. Patient hgb 7.9. NPO currently. Still with some confusion. No abdominal pain. Denies fever sweats chills shortness of breath or chest pain. Objective Exam General Appearance: No Apparent Distress, Chronically ill HEENT: PERRL/EOMI, Normal ENT Inspection Neck: Full Range of Motion, Supple Respiratory: Chest Non Tender, No Accessory Muscle Use, No Respiratory Distress Cardiovascular: Regular Rate, Rhythm, No JVD Gastrointestinal: non tender, soft; No tenderness (RUQ) Extremity: Normal Inspection, Non Tender, No Calf Tenderness Neurologic/Psychiatric: Alert, Disoriented Skin: Normal Color, Warm/Dry Lymphatic: No Adenopathy Assessment/Plan Assessment/Plan Assessment/Plan synopal episode Gi bleed upper termite helper anticogaulation on Eliquis- reversed in ed. hold anticoagulation. Continue Protoinx Follow hgb and transfuse prbc as needed. Pt's hemoglobin was 7.9 this morning which is decreased from yesterday's 8.9 Start clears if hgb continues to drop may need repeat EGD Supervisory-Addendum Brief Verification & Attestation Participated in pt care: history, MDM, physical Personally performed: exam, history, MDM, supervision of care Care discussed with: Medical Student Procedures: n/a Results interpretation: Verified all documentation Verification and Attestation of Medical Student E/M Service A medical student performed and documented this service in my presence. I reviewed and verified all information documented by the medical student and made modifications to such information, when appropriate. I personally performed the physical exam and medical decision making. Samuel Steel, Apr 08, 2022,16:09 TRUMAN OLVERA Apr 08, 2022 07:36 SAMUEL STEEL DO Apr 08, 2022 16:07
[2022-04-08] MEDS: OCTREOTIDE INJECTION 500 MCG in NS (IVPB) 99 ML IV SCH (10:20)
--- NOTE | 2022-04-08 10:43 | Tele-ICU Progress Note ---
Subjective Date Seen by a Provider: Apr 08, 2022 Time Seen by a Provider: 10:41 Subjective/Events-last exam (Tele-ICU Physician , Progress Note ) Service provided via interactive audio and video telecommunications E-CARE system to a patient admitted to ICU bed in [facility]. Available chart/ vitals / labs / Images reviewed Video assessment done using teleICU camera, rest of exam as per RN Discussed with RN Events overnight : 37.6 hemodynamically stable Respiratory - 2l night I/O =pos Drips: ns 70 Pressors- no Consultants: sx Hospital course: Patient is seen today due to persistent hypotension , GIB and mental status chaneg and new A/P GIB, predumed Upper ( hematemesis 0 - on PP and octreotide gtt - s/p EGD 04/07 - gastric ulcer -Fluid resuscitation to decrease , no need for vasopressors at present -follow levels HB Hypotension on presentation - resolved S/p fall - ? syncope with hypotension - CTH /spine .chest /abd neg 04/06 on presentation - bruised toe Acute mental status chaneg - in ICU 04/07 am - repeated CTH - no bleeding - possibly due to hypoperfusion with hypotension - back to NL Coagulopathy - on Eliquis FILLER IN - received K centra 04/07 A fib , chronic - rate controlled -NOAC reversed ( Eliquis FILLER IN ) _ as per cards and Sx and PCP Anemia -s/p transfusion 21 U pRBC 04/07 -monitor H + H, PT/INR Leukocutosis - ? reactive - UA neg , panCT - no suspected sourse , + atelectasis - off ABX s/p pacemeker - ? cardiac history h/o CVA , mild dementia - follow COPD , ANGELITO - as per chart - stable now, on 2 L o2 here at night , will need more information Lines : periph , (Central Line Necessity Reviewed) Kim: 04/06 OG: Nutrition: npo Analgesia: Anxiety/ delirium VTE Prophylaxis: scd Stress Ulcer Prophylaxis: ppi Plans in collaboration with bedside consultants and IM MDs. Discussed with RN to reach out if any questions or concerns A total of 25 minutes of critical care time was devoted to this patient today, required to treat and/or prevent further deterioration of critical care condition ( as above ) . I am remotely monitoring this patient from another state. I am unable to do the bedside exam, and history/physical and pertinent information is taken from other notes in the computer and bedside staff. Sepsis Event Evaluation Height, Weight, BMI Height: '" Weight: lbs. oz. kg; 32.66 BMI Method: Focused Exam Lactate Level 04/07/22 07:40: Lactic Acid Level 2.59*H 04/07/22 09:40: Lactic Acid Level 3.66*H 04/07/22 11:58: Lactic Acid Level 3.55*H Exam Exam Patient acknowledged, consented, and participated in this virtual visit which was conducted using real time audio/video Vital Signs Date Time Temp Pulse Resp B/P (MAP) Pulse Ox O2 Delivery O2 Flow Rate FiO2 04/08/22 10:00 81 20 114/70 (85) 99 Nasal Cannula 2.00 04/08/22 09:00 87 19 134/62 (86) 98 Nasal Cannula 2.00 04/08/22 08:00 98 Nasal Cannula 2.00 04/08/22 08:00 37.0 04/08/22 08:00 78 117/58 (77) 98 Nasal Cannula 2.00 04/08/22 07:39 82 04/08/22 07:00 90 123/69 (87) 96 Nasal Cannula 2.00 04/08/22 06:00 85 28 128/47 (74) 99 Nasal Cannula 2.00 04/08/22 05:00 92 122/64 (83) 97 Nasal Cannula 2.00 04/08/22 04:00 97 Nasal Cannula 2.00 04/08/22 04:00 37.0 04/08/22 04:00 79 124/68 (86) 98 Nasal Cannula 2.00 04/08/22 03:05 90 129/94 04/08/22 03:00 92 122/60 (80) 97 Nasal Cannula 2.00 04/08/22 02:00 96 127/60 (82) 98 Nasal Cannula 2.00 04/08/22 01:00 90 124/68 (86) 98 Nasal Cannula 2.00 04/08/22 01:00 90 04/08/22 00:00 90 121/59 (79) 96 Nasal Cannula 2.00 04/07/22 23:35 97 Nasal Cannula 2.00 04/07/22 23:22 37.3 04/07/22 23:00 85 131/52 (78) 98 Nasal Cannula 2.00 04/07/22 22:00 97 119/70 (86) 97 Nasal Cannula 2.00 04/07/22 21:21 Nasal Cannula 2.00 04/07/22 21:11 Room Air 04/07/22 21:00 93 121/64 (83) 92 OxyMask 2.00 04/07/22 20:00 86 126/81 (96) 98 OxyMask 2.00 04/07/22 19:57 37.6 04/07/22 19:55 100 OxyMask 2.00 04/07/22 19:52 OxyMask 2.00 04/07/22 19:00 80 131/95 (107) 100 OxyMask 5.00 04/07/22 19:00 94 04/07/22 18:00 101 136/89 (105) 100 OxyMask 5.00 04/07/22 17:31 37.0 97 20 129/94 100 OxyMask 5.00 04/07/22 17:00 97 26 119/69 (86) 100 OxyMask 5.00 04/07/22 16:00 91 16 126/69 (88) 100 OxyMask 5.00 04/07/22 15:50 36.8 04/07/22 15:48 37.2 83 18 117/72 97 OxyMask 5.00 04/07/22 15:35 100 OxyMask 5.00 04/07/22 15:28 37.6 85 19 118/77 97 OxyMask 5.00 04/07/22 15:00 91 9 109/65 (80) 100 OxyMask 5.00 04/07/22 14:00 91 29 124/72 (89) 95 OxyMask 5.00 04/07/22 13:45 95 24 90/71 (77) 88 OxyMask 5.00 04/07/22 13:30 100 19 69/50 (56) 87 OxyMask 5.00 04/07/22 13:15 101 22 94 OxyMask 10.00 04/07/22 13:10 108 22 94 OxyMask 10.00 04/07/22 13:05 97 22 94 OxyMask 10.00 04/07/22 12:19 80 04/07/22 12:15 89 19 110/73 (85) 97 Room Air 04/07/22 12:00 97 Room Air 04/07/22 11:52 37.2 04/07/22 11:30 73 12 118/64 (82) 96 Room Air 04/07/22 11:00 78 9 121/77 (92) 96 Room Air l I & O 04/08/22 07:00 Intake Total 4400 ml Output Total 1725 ml Balance 2675 ml Height & Weight Height: '" Weight: lbs. oz. kg; 32.66 BMI Method: General Appearance: No Apparent Distress, Chronically ill HEENT: PERRL/EOMI, Pharynx Normal Neck: Full Range of Motion, Normal Inspection Respiratory: Lungs Clear, Normal Breath Sounds Cardiovascular: No Edema, No Gallop, No JVD, No Murmur, Normal Peripheral Pulses, Irregularly Irregular Capillary Refill: Less Than 3 Seconds Peripheral Pulses: 2+ Radial Pulses (R), 2+ Radial Pulses (L) Gastrointestinal: soft, tenderness (RUQ) Extremity: Normal Capillary Refill, Normal Inspection, Non Tender, No Calf Tenderness, No Pedal Edema Neurologic/Psychiatric: Alert, Normal Mood/Affect, Disoriented Skin: Normal Color, Warm/Dry Results Lab Laboratory Tests 04/07/22 05:30 04/07/22 11:58 04/08/22 04:38 Assessment/Plan Assessment/Plan 1 INDU MEDINA MD Apr 08, 2022 10:43
--- NOTE | 2022-04-08 12:02 | Progress Note - Hospitalist ---
DARLIN OLIVA 04/08/22 1202: Subjective HPI/CC On Admission Date Seen by Provider: Apr 08, 2022 Time Seen by Provider: 10:50 Subjective/Events-last exam Corwin is a 76y M here for syncope and upper GI bleed. He had an EGD yesterday with Dr. Steel that revealed gastric ulcer, he injected lidociane with epinephrine to control bleeding. His hgb was at 8.9 yesterday down from 11.1 so he received 1 unit PRBC. Hgb today is 7.9. Today he is very somnolent and is unable to stay awake to answer my questions. Denies pain. Review of Systems Unable to obtain 2/2 patient condition Focused Exam Lactate Level 04/07/22 07:40: Lactic Acid Level 2.59*H 04/07/22 09:40: Lactic Acid Level 3.66*H 04/07/22 11:58: Lactic Acid Level 3.55*H Objective Exam Vital Signs Vital Signs Date Time Temp Pulse Resp B/P (MAP) Pulse Ox O2 Delivery O2 Flow Rate FiO2 04/08/22 11:00 86 14 122/63 (82) 98 Nasal Cannula 2.00 04/08/22 08:00 37.0 Capillary Refill : Less Than 3 Seconds General Appearance: No Apparent Distress, Chronically ill HEENT: Moist Mucous Membranes Respiratory: Chest Non Tender, Lungs Clear, Normal Breath Sounds, No Accessory Muscle Use, No Respiratory Distress Cardiovascular: No Edema, Normal Peripheral Pulses, Irregularly Irregular Gastrointestinal: Normal Bowel Sounds, Non Tender, Soft Extremity: Normal Capillary Refill, No Pedal Edema Neurologic/Psychiatric: Disoriented, Other (somnolent) Skin: Normal Color, Warm/Dry Results/Procedures Lab Laboratory Tests 04/07/22 11:58 04/08/22 04:38 Patient resulted labs reviewed. Assessment/Plan Assessment and Plan Assess & Plan/Chief Complaint Syncope Upper GI bleed Gastric ulcer AMS-S/p fall Hypotension Long-Term anticoagulation Chronic Afib Anemia Leukocytosis h/o stroke Protonix and octreotide Track and trend H&H, transfuse as needed, s/p 1 unit PRBC Move to med/surg 4th floor Supportive care Plan d/c tomorrow back to [facility] and rehab ZENOBIA BOLTON DO 04/09/22 0442: Subjective Subjective/Events-last exam Moving patient down to fourth floor Patient DNR If he does not recover he could be a hospice candidate Supervisory-Addendum Brief Verification & Attestation Participated in pt care: history, MDM, physical Personally performed: exam, history, MDM, supervision of care Care discussed with: Medical Student Procedures: n/a Results interpretation: Verified all documentation Verification and Attestation of Medical Student E/M Service A medical student performed and documented this service in my presence. I reviewed and verified all information documented by the medical student and made modifications to such information, when appropriate. I personally performed the physical exam and medical decision making. Zenobia Bolton Apr 09, 2022,04:41 DARLIN OLIVA Apr 08, 2022 12:02 ZENOBIA BOLTON DO Apr 09, 2022 04:42
[2022-04-08] MEDS ORDERED: CYAN10007 PO (13:53)
[2022-04-08] MEDS ORDERED: METH5TAB86 PO (13:53)
[2022-04-08] MEDS ORDERED: FAMO-119 PO (13:53)
[2022-04-08] MEDS ORDERED: MIRT-47 PO (13:53)
[2022-04-08] MEDS ORDERED: APIX5TAB PO (13:53)
[2022-04-08] MEDS ORDERED: ACET325T38 PO (13:53)
[2022-04-08] MEDS ORDERED: LISI20TA26 PO (13:53)
[2022-04-08] MEDS ORDERED: ONDA4TAB11 SL (13:53)
[2022-04-08] MEDS ORDERED: MTP100TCR PO (13:53)
[2022-04-08] MEDS ORDERED: GABA-486 PO (13:53)
[2022-04-08] MEDS ORDERED: MELA3TAB39 PO (13:53)
[2022-04-08] MEDS ORDERED: METF-397 PO (13:53)
[2022-04-08] MEDS ORDERED: OXYB-52 PO (13:53)
[2022-04-08] MEDS ORDERED: DIVA125T32 PO (13:53)
[2022-04-08] MEDS ORDERED: HYDR12.56 PO (13:53)
[2022-04-08] MEDS ORDERED: ATOR80TA76 PO (13:59)
[2022-04-08] MEDS ORDERED: AMLO-251 PO (13:59)
[2022-04-08] MEDS ORDERED: DIVA-74 PO (13:59)
[2022-04-08 15:46] VITALS: BP 132/65
[2022-04-08 15:54] VITALS: BP 123/52
[2022-04-08 19:25] VITALS: BP 109/58
[2022-04-08] MEDS: PANTOPRAZOLE 40 MG (PROTONIX) VIAL IV SCH (20:15)
[2022-04-08 23:12] VITALS: BP 131/70
[2022-04-09] VITALS (15 sets, daily range): BP systolic 90–130; BP diastolic 52–75
[2022-04-09] MEDS: inSUlin ASPART (NovoLOG) 1 UNIT/0.01 ML (CHARGE PER UNIT) SC SCH ×5 (00:55→23:27)
[2022-04-09 06:19] LABS: BASOPHILS % (AUTO) 0 % (0-10); EOSINOPHILS # (AUTO) 0.3 10^3/uL (0.0-0.3); EOSINOPHILS % (AUTO) 3 % (0-10); LYMPHOCYTES # (AUTO) 1.8 10^3/uL (1.0-4.0); LYMPHOCYTES % (AUTO) 19 % (12-44); MEAN CORPUSCULAR HEMOGLOBIN 32 pg (25-34); MEAN CORPUSCULAR HGB CONC 34 g/dL (32-36); MEAN CORPUSCULAR VOLUME 95 fL (80-99); MONOCYTES # (AUTO) 1.1 10^3/uL (0.0-1.0); MONOCYTES % (AUTO) 11 % (0-12); NEUTROPHILS # (AUTO) 6.2 10^3/uL (1.8-7.8); NEUTROPHILS % (AUTO) 66 % (42-75); PLATELET COUNT 183 10^3/uL (130-400); WHITE BLOOD COUNT 9.5 10^3/uL (4.3-11.0)
[2022-04-09 06:28] LABS: HEMATOCRIT 19 % (40-54); HEMOGLOBIN 6.5 g/dL (13.3-17.7)
[2022-04-09 06:47] LABS: ALBUMIN 2.7 GM/DL (3.2-4.5); BILIRUBIN,TOTAL 0.5 MG/DL (0.1-1.0); CALCIUM 7.9 MG/DL (8.5-10.1); CREATININE SERUM 0.6 MG/DL (0.60-1.30); MAGNESIUM 1.8 MG/DL (1.6-2.4); POTASSIUM 3.5 MMOL/L (3.6-5.0); TOTAL PROTEIN 4.6 GM/DL (6.4-8.2)
[2022-04-09] MEDS ORDERED: NS IV 500 ML 500 ML IV SCH (07:00)
--- NOTE | 2022-04-09 07:40 | Progress Note - Surgery ---
TRUMAN OLVERA 04/09/22 0740: Subjective Date Seen by a Provider: Apr 09, 2022 Subjective/Events-last exam Pt was sitting in bed doing well w/o pain. Pt currently doesn't have any complaints. Pt is tolerating clear liquid diet. Pt is not ambulating or using ICS. Had two bowel movement yesterday, but none this morning. Kim in place and has a rate of .5. Pt continue to receive 2L oxygen via NC due to past medical history of COPD and ANGELITO. Review of Systems General: No Chills, No Fatigue HEENT: No Head Aches, No Visual Changes, No Eye Pain Pulmonary: No Dyspnea, No Cough Cardiovascular: No: Chest Pain, Palpitations Gastrointestinal: No: Nausea, Vomiting, Abdominal Pain, Constipation Neurological: No: Weakness, Numbness Focused Exam Lactate Level 04/07/22 07:40: Lactic Acid Level 2.59*H 04/07/22 09:40: Lactic Acid Level 3.66*H 04/07/22 11:58: Lactic Acid Level 3.55*H Objective Exam Vital Signs Date Time Temp Pulse Resp B/P (MAP) Pulse Ox O2 Delivery O2 Flow Rate FiO2 04/09/22 07:07 36.8 70 18 122/63 (82) 95 Nasal Cannula 1.00 04/09/22 03:21 37.4 80 20 112/64 (80) 92 Nasal Cannula 2.00 2.00 04/09/22 00:07 92 Room Air 0.00 21 04/08/22 23:12 37.1 71 20 131/70 (90) 93 Nasal Cannula 2.00 2.00 04/08/22 20:15 Room Air 04/08/22 19:25 37.2 79 20 109/58 (75) 93 Nasal Cannula 2.00 04/08/22 15:54 04/08/22 15:46 36.7 76 17 132/65 (87) 94 Nasal Cannula 2.00 04/08/22 15:00 96 Nasal Cannula 2.00 04/08/22 14:31 36.6 80 18 134/63 (86) 94 Nasal Cannula 2.00 04/08/22 14:00 77 18 123/60 (81) 99 Nasal Cannula 2.00 04/08/22 13:00 94 04/08/22 13:00 73 19 130/63 (85) 98 Nasal Cannula 2.00 04/08/22 12:00 37.4 04/08/22 12:00 85 21 125/67 (86) 99 Nasal Cannula 2.00 04/08/22 12:00 96 Nasal Cannula 2.00 04/08/22 11:00 86 14 122/63 (82) 98 Nasal Cannula 2.00 04/08/22 10:00 81 20 114/70 (85) 99 Nasal Cannula 2.00 04/08/22 09:00 87 19 134/62 (86) 98 Nasal Cannula 2.00 04/08/22 08:00 98 Nasal Cannula 2.00 04/08/22 08:00 37.0 04/08/22 08:00 78 117/58 (77) 98 Nasal Cannula 2.00 04/08/22 07:39 82 I & O 04/09/22 07:00 Intake Total 930 ml Output Total 1625 ml Balance -695 ml Capillary Refill : Less Than 3 Seconds General Appearance: No Apparent Distress, Chronically ill HEENT: PERRL/EOMI, Normal ENT Inspection Neck: Full Range of Motion, Supple Respiratory: Chest Non Tender, No Accessory Muscle Use, No Respiratory Distress Cardiovascular: No JVD, Irregularly Irregular Peripheral Pulses: 2+ Radial Pulses (R), 2+ Radial Pulses (L) Gastrointestinal: non tender, soft Extremity: Normal Inspection, Non Tender, No Calf Tenderness Neurologic/Psychiatric: Alert, Disoriented Skin: Normal Color, Warm/Dry Lymphatic: No Adenopathy Results Lab Laboratory Tests 04/08/22 11:15: Glucometer 144H 04/08/22 18:17: Glucometer 151H 04/08/22 23:15: Glucometer 143H 04/09/22 04:57: Glucometer 131H 04/09/22 06:06: White Blood Count 9.5, Red Blood Count 2.05L, Hemoglobin 6.5*L, Hematocrit 19*L, Mean Corpuscular Volume 95, Mean Corpuscular Hemoglobin 32, Mean Corpuscular Hemoglobin Concent 34, Red Cell Distribution Width 13.2, Platelet Count 183, Mean Platelet Volume 11.0, Immature Granulocyte % (Auto) 1, Neutrophils (%) (Auto) 66, Lymphocytes (%) (Auto) 19, Monocytes (%) (Auto) 11, Eosinophils (%) (Auto) 3, Basophils (%) (Auto) 0, Neutrophils # (Auto) 6.2, Lymphocytes # (Auto) 1.8, Monocytes # (Auto) 1.1H, Eosinophils # (Auto) 0.3, Basophils # (Auto) 0.0, Immature Granulocyte # (Auto) 0.1, Sodium Level 136, Potassium Level 3.5L, Chloride Level 107, Carbon Dioxide Level 22, Anion Gap 7, Blood Urea Nitrogen 20H, Creatinine 0.60, Estimat Glomerular Filtration Rate 99, BUN/Creatinine Ratio 33, Glucose Level 130H, Calcium Level 7.9L, Corrected Calcium 8.9, Magnesium Level 1.8, Total Bilirubin 0.5, Aspartate Amino Transf (AST/SGOT) 14, Alanine Aminotransferase (ALT/SGPT) 14, Alkaline Phosphatase 35L, Total Protein 4.6L, Albumin 2.7L Microbiology 04/07/22 Blood Culture - Preliminary, Resulted No growth Assessment/Plan Assessment/Plan Assessment/Plan synopal episode Gi bleed upper snf anticogaulation on Eliquis- reversed in ed. hold anticoagulation. Continue Protoinx Continue Clear Liquid Diet Encourage ambulation and use of ICS Follow hgb and transfuse prbc as needed. Pt's hemoglobin was 6.5 this morning which is decreased from yesterday's 7.9. Consider repeat EGD due to persistent drop of hemoglobin. SAMUEL STEEL DO 04/09/22 1414: Subjective Subjective/Events-last exam Patient not having any pain. Hgb dropped to 6.5. Being transfused prbc. No more hematemesis. Denies n/v fever sweats chills shortness of breath or chest pain. 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 hold anticoagulation. Continue Protoinx Clear Liquid Diet - changed to NPO Follow hgb and transfuse prbc as needed. Pt's hemoglobin drop repeat EGD due to drop of hemoglobin. Supervisory-Addendum Brief Verification & Attestation Participated in pt care: history, MDM, physical Personally performed: exam, history, MDM, supervision of care Care discussed with: Medical Student Procedures: n/a Results interpretation: Verified all documentation Verification and Attestation of Medical Student E/M Service A medical student performed and documented this service in my presence. I reviewed and verified all information documented by the medical student and made modifications to such information, when appropriate. I personally performed the physical exam and medical decision making. Samuel Steel, Apr 09, 2022,14:14 TRUMAN OLVERA Apr 09, 2022 07:40 SAMUEL STEEL DO Apr 09, 2022 14:14
[2022-04-09] MEDS: PANTOPRAZOLE 40 MG (PROTONIX) VIAL IV SCH ×2 (08:46→20:35)
--- NOTE | 2022-04-09 10:30 | Physical Therapy Evaluation ---
PT Evaluation-General Medical Diagnosis Admission Date Apr 07, 2022 at 01:30 Medical Diagnosis: syncopal episode/head injury/GI bleed Onset Date: Apr 07, 2022 Therapy Diagnosis Therapy Diagnosis: generalized weakness/debility Precautions Precautions/Isolations: Fall Prevention, Standard Precautions Referral Physician: Brenda Reason for Referral: Evaluation/Treatment Medical History Pertinent Medical History: Atrial Fib (pacemaker), COPD, CVA, DM, Dementia, HTN, Neuropathy Current History EMS from [place] secondary to witnessed fall with LOC Reviewed History: Yes Social History Home: Detention Prior Prior Level of Function SCALE: Activities may be completed with or without assistive devices. 6-Mosqshitve-hdrqfnl completes the activity by him/herself with no assistance from a helper. 5-Set-up or Clean-up Assistance-helper sets up or cleans up; patient completes activity. [place] assists only prior to or following the activity. 4-Supervision or Touching Assistance-helper provides verbal cues and/or touching/steadying and/or contact guard assistance as patient completes activity. Assistance may be provided throughout the activity or intermittently. 3-Partial/Moderate Assistance-helper does LESS THAN HALF the effort. [place] lifts, holds or supports trunk or limbs, but provides less than half the effort. 2-Substantial/Maximal Assistance-helper does MORE THAN HALF the effort. [place] lifts or holds trunk or limbs and provides more than half the effort. 0-Pvvfhkfaq-lvjiki does ALL the effort. Patient does none of the effort to complete the activity. Or, the assistance of 2 or more helpers is required for the patient to complete the activity. If activity was not attempted, code reason: 7-Patient Refused. 9-Not Applicable-not attempted and the patient did not perform the activity before the current illness, exacerbation or injury. 10-Not Attempted due to Environmental Limitations-(lack of equipment, weather restraints, etc.). 88-Not Attempted due to Medical Conditions or Safety Concerns. Bed Mobility: 5 Transfers (B,C,W/C): 5 Gait: 5 Indoor Mobility (Ambulation): Independent Stairs: Not Applicalbe Prior Devices Use: Walker PT Evaluation-Current Subjective Patient is very confused but agrees to PT. Noted confusion. Objective Patient Orientation: Confused Attachments: Oxygen, Kim Catheter, IV ROM/Strength ROM Lower Extremities bilateral LE WFL Strength Lower Extremities 3/5 grossly bilateral LE all planes (unable to formally test due to confusion) Integumentary/Posture Integumentary refer to nursing notes Bowel Incontinence: Yes Bladder Incontinence: Kim Cath Posture WFL Neuromuscular (Tone, Coordination, Reflexes) diminished coordination due to confusion and mild weakness Sensory Vision: Functional Hearing: Impaired Transfers Lying to Sitting/Side of Bed(Q: 2 Sit to Stand (QC): 3 Toilet Transfer (QC): 3 Gait Mode of Locomotion: Walk Anticipated Mode of Locomotion: Walk Walk 10 feet (QC): 3 Walk 50 ft with 2 Turns(QC): 88 Walk 150 ft (QC): 88 Distance: 10' Gait Assistive Device: FWW Comments/Gait Description unsteady due to weakness Balance Sitting Static: Fair Sitting Dynamic: Fair Standing Static: Fair Standing Dynamic: Poor Assessment/Needs Patient incontinent BM requiring dependent assist to cleanse and change. Nursing present to assist. Patient will benefit from skilled PT to address functional strength and mobility to improve current LOF to safely return to NH at maximum LOF. Rehab Potential: Guarded PT Residential Goals Workers Compensation Claims Specialist Goals PT Workers Compensation Claims Specialist Goals Time Frame: Apr 24, 2022 Roll Left & Right (QC): 4 Sit to Lying (QC): 4 Lying-Sitting on Side/Bed(QC): 4 Sit to Stand (QC): 4 Chair/Dqg-ef-Owcdx Xfer(QC): 4 Toilet Transfer (QC): 4 Walk 10 feet (QC): 4 Walk 50ft with 2 Turns (QC): 4 Walk 150 ft (QC): 4 PT Plan Problem List Problem List: Activity Tolerance, Functional Strength, Safety, Balance, Gait, Transfer, Bed Mobility Treatment/Plan Treatment Plan: Continue Plan of Care Treatment Plan: Bed Mobility, Education, Functional Activity Rian, Functional Strength, Gait, Safety, Therapeutic Exercise, Transfers Treatment Duration: Apr 24, 2022 Frequency: 6 times per week Estimated Hrs Per Day: .25 hour per day Patient and/or Family Agrees t: Yes Time Time In: 903 Time Out: 919 DATE: Apr 09, 2022 Total Billed Treatment Time: 16 Total Billed Treatment 1 visit EVModC 16 min CURRY DOWNEY PT Apr 09, 2022 10:30
--- NOTE | 2022-04-09 12:01 | Occupational Therapy Eval ---
OT Evaluation-General/PLF Medical Diagnosis Admission Date Apr 07, 2022 at 01:30 Medical Diagnosis: syncopal episode/head injury/GI bleed Onset Date: Apr 07, 2022 Therapy Diagnosis Therapy Diagnosis: decreased ADL status, weakness Precautions Precautions/Isolations: Fall Prevention, Standard Precautions Referral Physician: Brenda Referral Reason: Evaluation/Treatment Medical History Pertinent Medical History: Atrial Fib (pacemaker), COPD, CVA, DM, Dementia, HTN, Neuropathy Additional Medical History dementia, CVA, afib, COPD, HTN, GERD, DM, neuropathy, pacemaker, BPH, anxiety/depression Current History ED 04/06 after fall with LOC ~30-40 seconds, and decreased mentation upon awakening Social History Home: Skilled Nursing ([facility]) ADL-Prior Level of Function SCALE: Activities may be completed with or without assistive devices. 6-Cvrchppyml-ittvsbo completes the activity by him/herself with no assistance from a helper. 5-Set-up or Clean-up Assistance-helper sets up or cleans up; patient completes activity. [place] assists only prior to or following the activity. 4-Supervision or Touching Assistance-helper provides verbal cues and/or touching/steadying and/or contact guard assistance as patient completes activity. Assistance may be provided throughout the activity or intermittently. 3-Partial/Moderate Assistance-helper does LESS THAN HALF the effort. [place] lifts, holds or supports trunk or limbs, but provides less than half the effort. 2-Substantial/Maximal Assistance-helper does MORE THAN HALF the effort. [place] lifts or holds trunk or limbs and provides more than half the effort. 8-Cfexsdvgi-qbrsfd does ALL the effort. Patient does none of the effort to complete the activity. Or, the assistance of 2 or more helpers is required for the patient to complete the activity. If activity was not attempted, code reason: 7-Patient Refused. 9-Not Applicable-not attempted and the patient did not perform the activity before the current illness, exacerbation or injury. 10-Not Attempted due to Environmental Limitations-(lack of equipment, weather restraints, etc.). 88-Not Attempted due to Medical Conditions or Safety Concerns. ADL PLOF Comments Pt reports IND with ADLs and functional mobility. Accuracy of information unknown due to pt's history of dementia and current placement at [facility] Self Care: Needed Some Help Functional Cognition: Needed Some Help OT Current Status Subjective Pt in bed, receiving blood transfusion. Pt agreeable to OT evaluation. Pt had difficulty answering questions and was confused throughout tx. Mental Status/Objective Patient Orientation: Person, Confused Attachments: Kim Catheter, IV Current Hand Dominance: Left Upper Extremity ROM WFL, BUE shoulder flexion to approx 160 degrees Upper Extremity Coordination WFL Upper Extremity Strength grossly 4-/5 ADL-Treatment Eating (QC): 4 Shower/Bathe Self (QC): 2 (Pt took shower this AM with nursing staff after incontinent bowel episode. Max A required.) Toileting Hygiene (QC): 1 (total assist after incontinent bowel episode this AM with PT/RN) Other Treatments Pt in bed, provided information about PLOF to his ability, accuracy of information unknown as pt has a history of dementia. Chart review indicated pt resides at [facility]. Pt declined ADLs at this time, he has already showered and toileted with nursing staff this morning after having incontinent episode of bowels this AM. Pt agreeable to UE exercises for strengthening and activity tolerance. No OOB activities performed at this time due to pt receiving blood transfusion and stated fatigue. Pt instructed to complete x10 reps shoulder flexion, after x6 reps, pt stopped exercises and declined further activity. OT informed pt about benefits and purpose of OT, but he declined further tx at this time. Post tx, pt in bed, call light in reach and all needs met. Education OT Patient Education: Correct positioning, Energy conservation, Modified ADL techniques, Progress toward Goal/Update tx plan, Purpose of tx/functional activities, Rehab process Teaching Recipient: Patient Teaching Methods: Discussion Response to Teaching: Reinforcement Needed OT [employer] Instructor Goals [facility] Goals Time Frame: Apr 23, 2022 Eating (QC): 5 Oral Hygiene (QC): 5 Toileting Hygiene (QC): 4 Shower/Bathe Self (QC): 3 Upper Body Dressing (QC): 4 Lower Body Dressing (QC): 3 On/Off Footwear (QC): 3 Additional Goals: 1-Demonstrate ADL Tasks, 2-Verbalize Understanding, 3-ImproveStrength/Rian 1=Demonstrate adherence to instructed precautions during ADL tasks. 2=Patient will verbalize/demonstrate understanding of assistive devices/modifications for ADL. 3=Patient will improve strength/tolerance for activity to enable patient to perform ADL's. OT Education/Plan Problem List/Assessment Assessment: Decreased Activ Tolerance, Decreased Safety Aware, Decreased UE Strength, Impaired Cognition, Impaired Funct Balance, Impaired I ADL's, Impaired Self-Care Skills Discharge Recommendations Plan/Recommendations: Continue POC Treatment Plan/Plan of Care Patient would benefit from OT for education, treatment and training to promote independence in ADL's, mobility, safety and/or upper extremity function for ADL's. Plan of Care: ADL Retraining, Functional Mobility, UE Funct Exercise/Act Treatment Duration: Apr 23, 2022 Frequency: 3 times per week (3-5 times per week) Rehab Potential: Guarded Time Start Time: 11:46 Stop Time: 11:55 DATE: Apr 09, 2022 Total Time Billed (hr/min): 9 Billed Treatment Time 1, TU WALKER OT Apr 09, 2022 12:01
--- NOTE | 2022-04-09 12:24 | Progress Note - Hospitalist ---
[facility] 04/09/22 1224: Subjective HPI/CC On Admission Date Seen by Provider: Apr 09, 2022 Time Seen by Provider: 11:35 Subjective/Events-last exam Corwin is a 76y M here for syncope and upper GI bleed. Today he is more alert though only oriented to self. He is receiving 2 units PRBC today as his hgb fell from 7.9 yesterday to 6.5 this morning. He denies having any pain or nausea today. Upon moving from bed to chair, he was noted to have a large black BM. Dr. Steel, general surgery, will repeat EGD today d/t suspected continuous bleeding. Review of Systems General: No Chills, No Night Sweats HEENT: No Head Aches Pulmonary: No Dyspnea, No Cough Cardiovascular: No: Chest Pain, Palpitations Gastrointestinal: No: Nausea, Vomiting Focused Exam Lactate Level 04/07/22 07:40: Lactic Acid Level 2.59*H 04/07/22 09:40: Lactic Acid Level 3.66*H 04/07/22 11:58: Lactic Acid Level 3.55*H Objective Exam Vital Signs Vital Signs Date Time Temp Pulse Resp B/P (MAP) Pulse Ox O2 Delivery O2 Flow Rate FiO2 04/09/22 11:48 37.0 70 18 114/55 97 Nasal Cannula 1.00 04/09/22 00:07 21 Capillary Refill : Less Than 3 Seconds General Appearance: No Apparent Distress, Chronically ill HEENT: Moist Mucous Membranes, Pale Conjunctivae (L), Pale Conjunctivae (R) Respiratory: Chest Non Tender, Lungs Clear, Normal Breath Sounds, No Accessory Muscle Use, No Respiratory Distress Cardiovascular: No Edema, No Murmur, Normal Peripheral Pulses, Irregularly Irregular Gastrointestinal: Normal Bowel Sounds, Non Tender, Soft Extremity: Non Tender, No Calf Tenderness, No Pedal Edema, Slow Capillary Refill Neurologic/Psychiatric: Alert, Disoriented (oriented to self only) Skin: Pallor Results/Procedures Lab Laboratory Tests 04/09/22 06:06 Patient resulted labs reviewed. Assessment/Plan Assessment and Plan Assess & Plan/Chief Complaint Syncope Upper GI bleed Gastric ulcer AMS-S/p fall Hypotension [facility] anticoagulation Chronic Afib Anemia Leukocytosis h/o stroke Track and trend H&H, transfuse as needed, 2 units PRBC today Supportive care Hold anticoagulation Repeat EGD today given presumed continuous GI bleeding BOLTON,ZENOBIA DO 04/09/222121: Subjective Subjective/Events-last exam Patient receiving 2 units of blood Assessment/Plan Assessment and Plan Assess & Plan/Chief Complaint More lucid today Transfuse Supervisory-Addendum Brief Verification & Attestation Participated in pt care: history, MDM, physical Personally performed: exam, history, MDM, supervision of care Care discussed with: Medical Student Procedures: n/a Results interpretation: Verified all documentation Verification and Attestation of Medical Student E/M Service A medical student performed and documented this service in my presence. I reviewed and verified all information documented by the medical student and made modifications to such information, when appropriate. I personally performed the physical exam and medical decision making. Zenobia Bolton Apr 09, 2022,21:21 DARLIN OLIVA Apr 09, 2022 12:24 ZENOBIA BOLTON DO Apr 09, 2022 21:22
[2022-04-09] MEDS ORDERED: LACTATED RINGERS 1,000 ML IV STA (13:59)
[2022-04-09] MEDS ORDERED: HURRICAINE EXT TUBE (BENZOCAINE) XX PRN (14:00)
[2022-04-09] MEDS ORDERED: proPOfol 200 MG/20 ML (DIPRIVAN) VIAL IV ONE (14:13)
[2022-04-09] MEDS ORDERED: KETAMINE 50 MG/5 ML SYRINGE ONE (14:13)
[2022-04-09] MEDS: NS IV 1000 ML 1,000 ML IV SCH (18:01)
[2022-04-10] VITALS (9 sets, daily range): BP systolic 111–153; BP diastolic 63–79
--- NOTE | 2022-04-10 00:16 | OPERATIVE REPORT ---
DATE OF SERVICE: 04/09/2022 PREOPERATIVE DIAGNOSES: Upper gastrointestinal bleed, anemia. POSTOPERATIVE DIAGNOSES: Gastritis, gastric ulcer. PROCEDURE: EGD with biopsy. SURGEON: Zeynep Steel DO ANESTHESIA: Per MDA. ESTIMATED BLOOD LOSS: None. COMPLICATIONS: None. INDICATIONS: The patient is a 74-year-old male with a history of GI bleed. He had previous scope demonstrating a gastric ulcer, which lidocaine with epinephrine was used to control bleeding. He still had significant clot burden, so poor visualization and the patient did have a slight drop in hemoglobin, so we decided to proceed with repeat EGD for reevaluation. Consent was signed and on the chart. DESCRIPTION OF PROCEDURE: The patient was taken to the endoscopy suite, placed in left lateral recumbent position. Timeout was performed. Scope was inserted in the mouth, down the esophagus, stomach and into the duodenum without difficulty. There were no polyps, masses, ulcerations within the duodenum. Scope was slowly retracted back into the stomach, where it was further insufflated. gastric ulceration along the greater curvature. No active bleeding. Gastritis appearance as well. Biopsies of the antrum and body were obtained. The scope was retroflexed noting no other pathology. Scope was returned to its normal position, slowly withdrawn to the distal esophagus had normal appearance, no polyps, masses or ulcerations. Scope was slowly retracted back and completely removed. The patient tolerated procedure well, no complications, taken to recovery in stable condition. RECOMMENDATIONS: The patient will continue on current medical management and await biopsy results. Continue on Protonix and will restart clear liquids. Follow hemoglobin and transfuse PRBC as needed. Job ID: [id number] DocumentID: [id number] Dictated Date: 04/09/2022 15:13:30 Rice Drier Date: 04/10/2022 00:14:00 Dictated By: ZEYNEP STEEL DO
--- NOTE | 2022-04-10 05:33 | Progress Note - Hospitalist ---
Subjective HPI/CC On Admission Date Seen by Provider: Apr 10, 2022 Time Seen by Provider: 05:30 Subjective/Events-last exam Patient still confused but more alert Hemoglobin 8.1 Kim catheter still in place Patient very debilitated Review of Systems Neurological: Confusion Focused Exam Lactate Level 04/07/22 11:58: Lactic Acid Level 3.55*H Objective Exam Vital Signs Vital Signs Date Time Temp Pulse Resp B/P (MAP) Pulse Ox O2 Delivery O2 Flow Rate FiO2 04/10/22 08:30 93 Room Air 0.00 04/10/22 07:29 36.8 61 16 118/63 (81) 04/10/22 01:38 21 Capillary Refill : Less Than 3 Seconds General Appearance: No Apparent Distress, WD/WN, Chronically ill Respiratory: Lungs Clear, Normal Breath Sounds Neurologic/Psychiatric: Alert, Oriented x3, No Motor/Sensory Deficits, Normal Mood/Affect Results/Procedures Lab Laboratory Tests 04/10/22 05:43 Patient resulted labs reviewed. Assessment/Plan Assessment and Plan Assess & Plan/Chief Complaint More lucid today Transfuse Syncope Upper GI bleed Acute blood loss requiring transfusions Gastric ulcer AMS-S/p fall Hypotension Skilled Nursing anticoagulation holding Chronic Afib Anemia Leukocytosis h/o stroke Plan: Monitor hemoglobin Supportive care KAMINI BOLTON DO Apr 10, 2022 05:33
[2022-04-10 05:56] LABS: BASOPHILS % (AUTO) 1 % (0-10); EOSINOPHILS # (AUTO) 0.3 10^3/uL (0.0-0.3); EOSINOPHILS % (AUTO) 3 % (0-10); HEMATOCRIT 24 % (40-54); HEMOGLOBIN 8.1 g/dL (13.3-17.7); LYMPHOCYTES # (AUTO) 1.7 10^3/uL (1.0-4.0); LYMPHOCYTES % (AUTO) 24 % (12-44); MEAN CORPUSCULAR HEMOGLOBIN 32 pg (25-34); MEAN CORPUSCULAR HGB CONC 34 g/dL (32-36); MEAN CORPUSCULAR VOLUME 93 fL (80-99); MONOCYTES # (AUTO) 0.9 10^3/uL (0.0-1.0); MONOCYTES % (AUTO) 12 % (0-12); NEUTROPHILS # (AUTO) 4.4 10^3/uL (1.8-7.8); NEUTROPHILS % (AUTO) 60 % (42-75); PLATELET COUNT 210 10^3/uL (130-400); WHITE BLOOD COUNT 7.4 10^3/uL (4.3-11.0)
[2022-04-10 06:06] LABS: ALBUMIN 2.9 GM/DL (3.2-4.5)
[2022-04-10 06:07] LABS: POTASSIUM 3.3 MMOL/L (3.6-5.0)
[2022-04-10 06:08] LABS: CALCIUM 8.2 MG/DL (8.5-10.1)
[2022-04-10 06:09] LABS: TOTAL PROTEIN 4.9 GM/DL (6.4-8.2)
[2022-04-10 06:11] LABS: BILIRUBIN,TOTAL 0.9 MG/DL (0.1-1.0)
[2022-04-10] MEDS: inSUlin ASPART (NovoLOG) 1 UNIT/0.01 ML (CHARGE PER UNIT) SC SCH ×3 (06:11→18:29)
[2022-04-10 06:13] LABS: CREATININE SERUM 0.63 MG/DL (0.60-1.30)
[2022-04-10 06:16] LABS: MAGNESIUM 2.1 MG/DL (1.6-2.4)
[2022-04-10] MEDS: NS IV 1000 ML 1,000 ML IV SCH ×2 (07:37→22:04)
--- NOTE | 2022-04-10 08:38 | Progress Note - Surgery ---
TRUMAN OLVERA 04/10/22 0838: Subjective Date Seen by a Provider: Apr 10, 2022 Time Seen by a Provider: 08:33 Subjective/Events-last exam Pt was seen and interviewed today; Pt was sitting up in bed in good spirit w/o any pain or concerns. Pt had a small black bowel movement after returning from repeat EGD. Pt was restarted on clears and is currently tolerating diet. Pt's urine rate is .6cc/kg/hr within normal limits. Pt denies N/V/D. Pt hemoglobin increased from yesterday after 3 units of blood. Review of Systems General: No Chills, No Night Sweats HEENT: No Head Aches, No Visual Changes, No Eye Pain Pulmonary: No Dyspnea, No Cough Cardiovascular: No: Chest Pain, Palpitations, Edema Gastrointestinal: No: Nausea, Vomiting, Diarrhea, Constipation Neurological: No: Weakness, Numbness Focused Exam Lactate Level 04/07/22 09:40: Lactic Acid Level 3.66*H 04/07/22 11:58: Lactic Acid Level 3.55*H Objective Exam Vital Signs Date Time Temp Pulse Resp B/P (MAP) Pulse Ox O2 Delivery O2 Flow Rate FiO2 04/10/22 07:29 36.8 61 16 118/63 (81) 94 Room Air 04/10/22 03:35 36.7 84 16 136/78 (97) 95 Room Air 04/10/22 01:38 37.0 66 97 21 04/10/22 00:01 37.0 66 16 111/69 (83) 97 Room Air 04/09/22 20:00 Room Air 04/09/22 19:16 36.7 71 16 123/72 (89) 99 Room Air 04/09/22 19:07 94 Room Air 04/09/22 15:30 36.5 67 18 123/57 (79) 94 04/09/22 14:45 75 18 98 Nasal Cannula 5.00 04/09/22 14:45 36.3 75 20 130/59 96 Nasal Cannula 1.00 04/09/22 14:40 78 18 99 OxyMask 8.00 04/09/22 14:35 73 18 99 OxyMask 10.00 04/09/22 11:48 37.0 70 18 114/55 97 Nasal Cannula 1.00 12/30/22 11:33 37.0 80 18 127/59 97 Nasal Cannula 1.00 04/09/22 11:11 37.0 80 127/59 Nasal Cannula 1.00 04/09/22 11:06 37.5 72 18 112/53 (72) 94 Nasal Cannula 1.00 04/09/22 09:17 36.7 81 20 109/59 97 Nasal Cannula 1.00 04/09/22 09:02 36.8 96 18 115/52 96 Nasal Cannula 1.00 04/09/22 08:58 36.8 80 18 115/52 (73) 96 Nasal Cannula 1.00 I & O 04/10/22 07:00 Intake Total 1860 ml Output Total 1325 ml Balance 535 ml Capillary Refill : Less Than 3 Seconds General Appearance: No Apparent Distress, Chronically ill HEENT: PERRL/EOMI, Normal ENT Inspection Neck: Full Range of Motion, Supple Respiratory: Chest Non Tender, No Accessory Muscle Use, No Respiratory Distress Cardiovascular: No JVD, Normal Peripheral Pulses, Irregularly Irregular Peripheral Pulses: 2+ Radial Pulses (R), 2+ Radial Pulses (L) Gastrointestinal: non tender, soft Extremity: Normal Inspection, Non Tender Neurologic/Psychiatric: Alert, Disoriented Skin: Warm/Dry, Pallor Lymphatic: No Adenopathy Results Lab Laboratory Tests 04/09/22 10:40: Glucometer 130H 04/09/22 17:01: Glucometer 124H 04/09/22 23:22: Glucometer 109 04/10/22 05:43: White Blood Count 7.4, Red Blood Count 2.56L, Hemoglobin 8.1#L, Hematocrit 24L, Mean Corpuscular Volume 93, Mean Corpuscular Hemoglobin 32, Mean Corpuscular Hemoglobin Concent 34, Red Cell Distribution Width 13.6, Platelet Count 210, Mean Platelet Volume 11.0, Immature Granulocyte % (Auto) 1, Neutrophils (%) (Auto) 60, Lymphocytes (%) (Auto) 24, Monocytes (%) (Auto) 12, Eosinophils (%) (Auto) 3, Basophils (%) (Auto) 1, Neutrophils # (Auto) 4.4, Lymphocytes # (Auto) 1.7, Monocytes # (Auto) 0.9, Eosinophils # (Auto) 0.3, Basophils # (Auto) 0.0, Immature Granulocyte # (Auto) 0.1, Sodium Level 137, Potassium Level 3.3L, Chloride Level 106, Carbon Dioxide Level 23, Anion Gap 8, Blood Urea Nitrogen 13, Creatinine 0.63, Estimat Glomerular Filtration Rate 98, BUN/Creatinine Ratio 21, Glucose Level 109H, Calcium Level 8.2L, Corrected Calcium 9.1, Magnesium Level 2.1, Total Bilirubin 0.9, Aspartate Amino Transf (AST/SGOT) 15, Alanine Aminotransferase (ALT/SGPT) 11, Alkaline Phosphatase 40, Total Protein 4.9L, Albumin 2.9L Microbiology 04/07/22 Blood Culture - Preliminary, Resulted Probable See Comments Assessment/Plan Assessment/Plan Assessment/Plan synopal episode Gi bleed upper senior care anticogaulation on Eliquis- reversed in ed. hold anticoagulation. Continue Protoinx Continue Clear Liquid Diet Follow hgb and transfuse prbc as needed. 8.1 Hgb increased from 6.5 yesterday after 3 units of blood. GATO STEELTT Diogenes DO 04/10/22 1452: Subjective Subjective/Events-last exam fPatient still with confusion. Sitting in chair and pleasant. Hgb improved. No blood emesis. No new complaints. Black Bm. Denies n/v fever sweats chills juan antonio rtness of breath or chest pain. 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 hold anticoagulation. Continue Protoinx Continue Clear Liquid Diet, if hgb stable tomorrow will advance diet. Follow hgb and transfuse prbc as needed. 8.1 Hgb increased from 6.5 yesterday after 3 units of blood. Supervisory-Addendum Brief Verification & Attestation Participated in pt care: history, MDM, physical Personally performed: exam, history, MDM, supervision of care Care discussed with: Medical Student Procedures: n/a Results interpretation: Verified all documentation Verification and Attestation of Medical Student E/M Service A medical student performed and documented this service in my presence. I reviewed and verified all information documented by the medical student and made modifications to such information, when appropriate. I personally performed the physical exam and medical decision making. Zeynep Steel, Apr 10, 2022,14:52 TRUMAN OLVERA Apr 10, 2022 08:38 ZEYNEP STEEL DO Apr 10, 2022 14:52
[2022-04-10] MEDS: PANTOPRAZOLE 40 MG (PROTONIX) VIAL IV SCH ×2 (09:25→21:00)
--- NOTE | 2022-04-10 13:19 | Physical Therapy Daily Note ---
PT Daily Note-Current Subjective Pt in bed upon arrival and agrees to PT. Pain Section J - Health Conditions 1. Rarely or not at all 2. Occasionally 3. Frequently 4. Almost constantly 8. Unable to answer Pain Effect on Sleep: 1 Pain Interference with Therapy: 1 Pain Interference w/Day-to-Day: 1 Mental Status Patient Orientation: Person, Place, Time Attachments: IV Transfers SCALE: Activities may be completed with or without assistive devices. 6-Kpecokibmz-niwoald completes the activity by him/herself with no assistance from a helper. 5-Set-up or Clean-up Assistance-helper sets up or cleans up; patient completes activity. [place] assists only prior to or following the activity. 4-Supervision or Touching Assistance-helper provides verbal cues and/or touching/steadying and/or contact guard assistance as patient completes activity. Assistance may be provided throughout the activity or intermittently. 3-Partial/Moderate Assistance-helper does LESS THAN HALF the effort. [place] lifts, holds or supports trunk or limbs, but provides less than half the effort. 2-Substantial/Maximal Assistance-helper does MORE THAN HALF the effort. [place] lifts or holds trunk or limbs and provides more than half the effort. 0-Gaavzzdxt-wtdabx does ALL the effort. Patient does none of the effort to complete the activity. Or, the assistance of 2 or more helpers is required for the patient to complete the activity. If activity was not attempted, code reason: 7-Patient Refused. 9-Not Applicable-not attempted and the patient did not perform the activity before the current illness, exacerbation or injury. 10-Not Attempted due to Environmental Limitations-(lack of equipment, weather restraints, etc.). 88-Not Attempted due to Medical Conditions or Safety Concerns. Lying to Sitting/Side of Bed(Q: 3 Sit to Stand (QC): 4 Gait Training Does the Patient Walk?: Yes Distance: 15' Walk 10 feet (QC): 4 Gait Persons Needed: 1 Gait Assistive Device: FWW Treatments Pt amb from bed and TFs into recliner. All needs met and call light in hand as PT departs. Assessment Current Status: Fair Progress Pt requires verbal and tactile cues in order to perform TFs correctly. PT Skilled Nursing Goals Skilled Nursing Goals PT Editing Internship Goals Time Frame: Apr 24, 2022 Roll Left & Right (QC): 4 Sit to Lying (QC): 4 Lying-Sitting on Side/Bed(QC): 4 Sit to Stand (QC): 4 Chair/Las-qi-Qecoj Xfer(QC): 4 Toilet Transfer (QC): 4 Walk 10 feet (QC): 4 Walk 50ft with 2 Turns (QC): 4 Walk 150 ft (QC): 4 PT Plan Problem List Problem List: Activity Tolerance, Functional Strength Treatment/Plan Treatment Plan: Continue Plan of Care Treatment Plan: Bed Mobility, Education, Functional Activity Rian, Functional Strength, Gait, Safety, Therapeutic Exercise, Transfers Treatment Duration: Apr 24, 2022 Frequency: 6 times per week Estimated Hrs Per Day: .25 hour per day Patient and/or Family Agrees t: Yes Time Time In: 1110 Time Out: 1125 DATE: Apr 10, 2022 Total Billed Treatment Time: 15 Total Billed Treatment 1LONDON TYLER PTA Apr 10, 2022 13:19
[2022-04-11] VITALS (7 sets, daily range): BP systolic 114–176; BP diastolic 67–82
[2022-04-11] MEDS: inSUlin ASPART (NovoLOG) 1 UNIT/0.01 ML (CHARGE PER UNIT) SC SCH ×4 (00:14→17:51)
--- NOTE | 2022-04-11 05:35 | Progress Note - Hospitalist ---
Subjective HPI/CC On Admission Date Seen by Provider: Apr 11, 2022 Time Seen by Provider: 05:30 Subjective/Events-last exam Patient seems to be improved Hemoglobin stable We will Hep-Lock IV fluid No pain is reported Restarted home meds except for anticoagulation Review of Systems General: Fatigue, Malaise Neurological: Confusion Objective Exam Vital Signs Vital Signs Date Time Temp Pulse Resp B/P (MAP) Pulse Ox O2 Delivery O2 Flow Rate FiO2 04/11/22 09:03 Room Air 0.00 04/11/22 07:05 37.1 87 18 176/79 (111) 92 04/10/22 01:38 21 Capillary Refill : Less Than 3 Seconds General Appearance: No Apparent Distress, WD/WN, Chronically ill, Obese Respiratory: Lungs Clear, Normal Breath Sounds Cardiovascular: Regular Rate, Rhythm Neurologic/Psychiatric: Alert, Disoriented Results/Procedures Lab Laboratory Tests 04/11/22 06:07 Patient resulted labs reviewed. Assessment/Plan Assessment and Plan Assess & Plan/Chief Complaint More lucid today Transfuse Assessment: Syncope Upper GI bleed Acute blood loss requiring transfusions Gastric ulcer AMS-S/p fall Hypotension Shelter anticoagulation holding Chronic Afib Anemia Leukocytosis h/o stroke Plan: Monitor hemoglobin Supportive care Hep-Lock IV fluid Home meds restarted except for anticoagulation KAMINI BOLTON DO Apr 11, 2022 05:35
[2022-04-11 06:16] LABS: BASOPHILS # (AUTO) 0.1 10^3/uL (0.0-0.1); BASOPHILS % (AUTO) 1 % (0-10); EOSINOPHILS # (AUTO) 0.2 10^3/uL (0.0-0.3); EOSINOPHILS % (AUTO) 3 % (0-10); HEMATOCRIT 26 % (40-54); HEMOGLOBIN 8.8 g/dL (13.3-17.7); LYMPHOCYTES # (AUTO) 1.3 10^3/uL (1.0-4.0); LYMPHOCYTES % (AUTO) 18 % (12-44); MEAN CORPUSCULAR HEMOGLOBIN 32 pg (25-34); MEAN CORPUSCULAR HGB CONC 33 g/dL (32-36); MEAN CORPUSCULAR VOLUME 95 fL (80-99); MEAN PLATELET VOLUME 10.4 fL (9.0-12.2); MONOCYTES % (AUTO) 15 % (0-12); NEUTROPHILS # (AUTO) 4.5 10^3/uL (1.8-7.8); NEUTROPHILS % (AUTO) 63 % (42-75); PLATELET COUNT 270 10^3/uL (130-400); WHITE BLOOD COUNT 7.1 10^3/uL (4.3-11.0)
[2022-04-11 06:40] LABS: ALBUMIN 3.1 GM/DL (3.2-4.5); BILIRUBIN,TOTAL 0.7 MG/DL (0.1-1.0); CALCIUM 8.6 MG/DL (8.5-10.1); CREATININE SERUM 0.65 MG/DL (0.60-1.30); MAGNESIUM 1.9 MG/DL (1.6-2.4); POTASSIUM 3.6 MMOL/L (3.6-5.0); TOTAL PROTEIN 5.6 GM/DL (6.4-8.2)
[2022-04-11] MEDS: PANTOPRAZOLE 40 MG (PROTONIX) VIAL IV SCH ×2 (08:35→21:51)
[2022-04-11] MEDS ORDERED: FAMOTIDINE 20 MG (PEPCID) TABLET PO PRN (10:15)
[2022-04-11] MEDS ORDERED: ONDANSETRON 4 MG (ZOFRAN) ORAL DISSOLVE TAB SL PRN (10:15)
[2022-04-11] MEDS ORDERED: ACETAMINOPHEN 325 MG TABLET PO PRN (10:15)
[2022-04-11] MEDS: GABAPENTIN 100 MG (NEURONTIN) CAP PO SCH ×2 (13:11→21:12)
[2022-04-11] MEDS: OXYBUTYNIN (DITROPAN) 5 MG TAB PO SCH ×2 (13:12→21:12)
--- NOTE | 2022-04-11 14:58 | Progress Note - Surgery ---
Subjective Date Seen by a Provider: Apr 11, 2022 Time Seen by a Provider: 08:05 Subjective/Events-last exam Patient laying in bed. Hgb up to 8.8. No new complaints. Tolerating clears. No more hematemesis. No abdominal pain. Still with some confusion. Denies fever sweats chills shortness of breath or chest pain. Objective Exam Vital Signs Date Time Temp Pulse Resp B/P (MAP) Pulse Ox O2 Delivery O2 Flow Rate FiO2 04/11/22 11:06 36.4 72 18 114/82 (93) 93 Room Air 04/11/22 09:03 Room Air 0.00 04/11/22 07:05 37.1 87 18 176/79 (111) 92 Room Air 04/11/22 04:00 37.1 79 20 135/82 (99) 95 Room Air 0.00 0.00 04/10/22 23:09 36.9 80 20 153/70 (97) 96 Room Air 0.00 0.00 04/10/22 20:59 Room Air 04/10/22 19:31 36.8 68 20 139/66 (90) 95 Room Air 04/10/22 19:27 68 20 139/66 (90) 95 Room Air 04/10/22 16:25 36.9 74 16 147/79 (101) 95 Room Air I & O 04/11/22 07:00 Intake Total 3455 ml Output Total 2750 ml Balance 705 ml Capillary Refill : Less Than 3 Seconds General Appearance: No Apparent Distress, WD/WN, Chronically ill, Obese HEENT: PERRL/EOMI, Normal ENT Inspection Neck: Full Range of Motion, Supple Respiratory: Chest Non Tender, No Accessory Muscle Use, No Respiratory Distress Cardiovascular: Regular Rate, Rhythm, No JVD Peripheral Pulses: 2+ Radial Pulses (R), 2+ Radial Pulses (L) Gastrointestinal: non tender, soft Extremity: Normal Inspection, Non Tender Neurologic/Psychiatric: Alert, Disoriented Skin: Normal Color, Warm/Dry Lymphatic: No Adenopathy Results Lab Laboratory Tests 04/10/22 18:25: Glucometer 154H 04/10/22 23:10: Glucometer 125H 04/11/22 05:18: Glucometer 114H 04/11/22 06:07: White Blood Count 7.1, Red Blood Count 2.77L, Hemoglobin 8.8L, Hematocrit 26L, Mean Corpuscular Volume 95, Mean Corpuscular Hemoglobin 32, Mean Corpuscular Hemoglobin Concent 33, Red Cell Distribution Width 13.4, Platelet Count 270, Mean Platelet Volume 10.4, Immature Granulocyte % (Auto) 1, Neutrophils (%) (Auto) 63, Lymphocytes (%) (Auto) 18, Monocytes (%) (Auto) 15H, Eosinophils (%) (Auto) 3, Basophils (%) (Auto) 1, Neutrophils # (Auto) 4.5, Lymphocytes # (Auto) 1.3, Monocytes # (Auto) 1.0, Eosinophils # (Auto) 0.2, Basophils # (Auto) 0.1, Immature Granulocyte # (Auto) 0.1, Sodium Level 142, Potassium Level 3.6, Chloride Level 111H, Carbon Dioxide Level 19L, Anion Gap 12, Blood Urea Nitrogen 7, Creatinine 0.65, Estimat Glomerular Filtration Rate 97, BUN/Creatinine Ratio 11, Glucose Level 118H, Calcium Level 8.6, Corrected Calcium 9.3, Magnesium Level 1.9, Total Bilirubin 0.7, Aspartate Amino Transf (AST/SGOT) 22, Alanine Aminotransferase (ALT/SGPT) 12, Alkaline Phosphatase 45, Total Protein 5.6L, Albumin 3.1L 04/11/22 11:05: Glucometer 112H Microbiology 04/09/22 MRSA Screen - Final, Complete MRSA not isolated 04/07/22 Blood Culture - Preliminary, Resulted Gram Positive Lupillo See Comments Assessment/Plan Assessment/Plan Assessment/Plan synopal episode Gi bleed upper with hematemesis Gastric ulcers await biopsies from egd correction anticogaulation on Eliquis- reversed in ed. hold anticoagulation. Continue Protoinx advance diet. Follow hgb and transfuse prbc as needed. ZEYNEP SHARMA DO Apr 11, 2022 14:58
[2022-04-11] MEDS: metFORMIN 500 MG (GLUCOPHAGE) TAB PO SCH (18:04)
[2022-04-11] MEDS ORDERED: DIVALPROX SPRINKLE 125 MG (DEPAKOTE) CAP PO SCH (21:00)
[2022-04-11] MEDS ORDERED: MIRTAZAPINE 15 MG (REMERON) TAB PO SCH (21:00)
[2022-04-11] MEDS ORDERED: DIVALPROEX 250 MG DELAYED RELEASE (DEPAKOTE) TAB PO SCH (21:00)
[2022-04-11] MEDS ORDERED: MELATONIN 3 MG TABLET PO SCH (21:00)
[2022-04-11] MEDS: meTOprolol SUCCINATE 100 MG (TOPROL XL) TAB PO SCH (21:11)
[2022-04-12] MEDS: inSUlin ASPART (NovoLOG) 1 UNIT/0.01 ML (CHARGE PER UNIT) SC SCH ×3 (00:15→12:15)
[2022-04-12 03:41] VITALS: BP 168/95
[2022-04-12 06:07] LABS: BASOPHILS % (AUTO) 1 % (0-10); EOSINOPHILS # (AUTO) 0.3 10^3/uL (0.0-0.3); EOSINOPHILS % (AUTO) 4 % (0-10); HEMATOCRIT 25 % (40-54); HEMOGLOBIN 8.6 g/dL (13.3-17.7); LYMPHOCYTES # (AUTO) 1.4 10^3/uL (1.0-4.0); LYMPHOCYTES % (AUTO) 19 % (12-44); MEAN CORPUSCULAR HEMOGLOBIN 31 pg (25-34); MEAN CORPUSCULAR HGB CONC 34 g/dL (32-36); MEAN CORPUSCULAR VOLUME 92 fL (80-99); MEAN PLATELET VOLUME 10.3 fL (9.0-12.2); MONOCYTES # (AUTO) 1.1 10^3/uL (0.0-1.0); MONOCYTES % (AUTO) 15 % (0-12); NEUTROPHILS # (AUTO) 4.3 10^3/uL (1.8-7.8); NEUTROPHILS % (AUTO) 60 % (42-75); PLATELET COUNT 306 10^3/uL (130-400); WHITE BLOOD COUNT 7.2 10^3/uL (4.3-11.0)
[2022-04-12 06:27] LABS: BILIRUBIN,TOTAL 0.6 MG/DL (0.1-1.0); CALCIUM 8.4 MG/DL (8.5-10.1); CREATININE SERUM 0.64 MG/DL (0.60-1.30); MAGNESIUM 1.9 MG/DL (1.6-2.4); TOTAL PROTEIN 5.2 GM/DL (6.4-8.2)
[2022-04-12] MEDS ORDERED: CYANOCOBALAMIN 1,000 MCG (VITAMIN B-12) TABLET PO SCH (07:00)
[2022-04-12] MEDS ORDERED: amLODIPine 10 MG (NORVASC) TAB PO SCH (08:00)
[2022-04-12] MEDS ORDERED: lisINopril 20 MG (PRINIVIL) TABLET PO SCH (08:00)
[2022-04-12 08:11] VITALS: BP 143/69
[2022-04-12] MEDS ORDERED: KCL 20 MEQ TAB (K-DUR) PO NR (08:45)
[2022-04-12] MEDS ORDERED: DIVALPROX SPRINKLE 125 MG (DEPAKOTE) CAP PO SCH (09:00)
[2022-04-12] MEDS: PANTOPRAZOLE 40 MG (PROTONIX) VIAL IV SCH (09:05)
[2022-04-12] MEDS: OXYBUTYNIN (DITROPAN) 5 MG TAB PO SCH (09:07)
[2022-04-12] MEDS: meTOprolol SUCCINATE 100 MG (TOPROL XL) TAB PO SCH (09:07)
[2022-04-12] MEDS: GABAPENTIN 100 MG (NEURONTIN) CAP PO SCH ×2 (09:07→13:24)
[2022-04-12] MEDS: metFORMIN 500 MG (GLUCOPHAGE) TAB PO SCH (09:10)
--- NOTE | 2022-04-12 09:15 | Progress Note - Surgery ---
Subjective Date Seen by a Provider: Apr 12, 2022 Time Seen by a Provider: 09:15 Subjective/Events-last exam Patient more alert, still with some confusion. Hgb stable. Tolerating diet. Denies n/v fever sweats chills shortness of breath or chest pain. Objective Exam Vital Signs Date Time Temp Pulse Resp B/P (MAP) Pulse Ox O2 Delivery O2 Flow Rate FiO2 04/12/22 08:11 36.8 76 22 143/69 (93) 93 Room Air 04/12/22 03:41 36.9 70 20 168/95 (119) 93 Room Air 0.00 0.00 04/11/22 23:04 36.9 73 20 168/78 (108) 92 Room Air 0.00 0.00 04/11/22 20:10 92 Room Air 04/11/22 19:08 36.8 73 20 148/75 (99) 92 Room Air 04/11/22 18:15 36.8 66 20 147/74 (98) 95 Room Air 04/11/22 15:19 36.6 77 20 137/67 (90) 93 Room Air 04/11/22 11:06 36.4 72 18 114/82 (93) 93 Room Air I & O 04/12/22 07:00 Intake Total 540 ml Balance 540 ml Capillary Refill : Less Than 3 Seconds General Appearance: No Apparent Distress, WD/WN, Chronically ill, Obese HEENT: PERRL/EOMI, Normal ENT Inspection Neck: Full Range of Motion, Supple Respiratory: Chest Non Tender, No Accessory Muscle Use, No Respiratory Distress Cardiovascular: Regular Rate, Rhythm, No JVD Peripheral Pulses: 2+ Radial Pulses (R), 2+ Radial Pulses (L) Gastrointestinal: non tender, soft Extremity: Normal Inspection, Non Tender Neurologic/Psychiatric: Alert, Disoriented Skin: Normal Color, Warm/Dry Lymphatic: No Adenopathy Results Lab Laboratory Tests 04/11/22 11:05: Glucometer 112H 04/11/22 17:31: Glucometer 133H 04/12/22 00:13: Glucometer 108 04/12/22 05:27: Glucometer 112H 04/12/22 05:53: White Blood Count 7.2, Red Blood Count 2.75L, Hemoglobin 8.6L, Hematocrit 25L, Mean Corpuscular Volume 92, Mean Corpuscular Hemoglobin 31, Mean Corpuscular Hemoglobin Concent 34, Red Cell Distribution Width 13.7, Platelet Count 306, Mean Platelet Volume 10.3, Immature Granulocyte % (Auto) 2, Neutrophils (%) (Auto) 60, Lymphocytes (%) (Auto) 19, Monocytes (%) (Auto) 15H, Eosinophils (%) (Auto) 4, Basophils (%) (Auto) 1, Neutrophils # (Auto) 4.3, Lymphocytes # (Auto) 1.4, Monocytes # (Auto) 1.1H, Eosinophils # (Auto) 0.3, Basophils # (Auto) 0.0, Immature Granulocyte # (Auto) 0.1, Sodium Level 139, Potassium Level 3.0L, Chloride Level 107, Carbon Dioxide Level 24, Anion Gap 8, Blood Urea Nitrogen 8, Creatinine 0.64, Estimat Glomerular Filtration Rate 98, BUN/Creatinine Ratio 13, Glucose Level 109H, Calcium Level 8.4L, Corrected Calcium 9.2, Magnesium Level 1.9, Total Bilirubin 0.6, Aspartate Amino Transf (AST/SGOT) 14, Alanine Aminotransferase (ALT/SGPT) 8, Alkaline Phosphatase 52, Total Protein 5.2L, Albumin 3.0L Microbiology 04/09/22 MRSA Screen - Final, Complete MRSA not isolated 04/07/22 Blood Culture - Preliminary, Resulted Gram Positive Lupillo See Comments Assessment/Plan Assessment/Plan Assessment/Plan synopal episode Gi bleed upper with hematemesis Gastric ulcers await biopsies from egd terminal carman anticogaulation on Eliquis- reversed in ed. hold anticoagulation. Continue Protoinx diet as tolerates Follow hgb and transfuse prbc as needed. ZEYNEP SHARMA DO Apr 12, 2022 09:15
--- NOTE | 2022-04-12 10:28 | Occupational Ther Daily Note ---
OT Current Status-Daily Note Subjective Laying supine w/ video monitor in session Appearance Calm and relaxed Mental Status/Objective Patient Orientation: Person, Confused, Eyes Open ADL-Treatment Bowel incontinent when standing to assess balance and transfers, linen and LB garment changes w/ nursing staff, RUE edema present Therapy Code Descriptions/Definitions Functional [place] Measure: 0=Not Assessed/NA 4=Minimal Assistance 1=Total Assistance 5=Supervision or Setup 2=Maximal Assistance 6=Modified [place] 3=Moderate Assistance 7=Complete IndependenceSCALE: Activities may be completed with or without assistive devices. 3-Bylhtjnxqn-tqtxmkj completes the activity by him/herself with no assistance from a helper. 5-Set-up or Clean-up Assistance-helper sets up or cleans up; patient completes activity. [place] assists only prior to or following the activity. 4-Supervision or Touching Assistance-helper provides verbal cues and/or touching/steadying and/or contact guard assistance as patient completes activity. Assistance may be provided throughout the activity or intermittently. 3-Partial/Moderate Assistance-helper does LESS THAN HALF the effort. [place] lifts, holds or supports trunk or limbs, but provides less than half the effort. 2-Substantial/Maximal Assistance-helper does MORE THAN HALF the effort. [place] lifts or holds trunk or limbs and provides more than half the effort. 1-Emrktjaqz-rdlabu does ALL the effort. Patient does none of the effort to complete the activity. Or, the assistance of 2 or more helpers is required for the patient to complete the activity. If activity was not attempted, code reason: 7-Patient Refused. 9-Not Applicable-not attempted and the patient did not perform the activity before the current illness, exacerbation or injury. 10-Not Attempted due to Environmental Limitations-(lack of equipment, weather restraints, etc.). 88-Not Attempted due to Medical Conditions or Safety Concerns. Eating (QC): 0 Oral Hygiene (QC): 0 Shower/Bathe Self (QC): 0 Upper Body Dressing (QC): 0 (hospital gown only) Lower Body Dressing (QC): 4 (required FWW, gait belt and asist of additional person) On/Off Footwear: 0 (non skid sock on) Toileting Hygiene (QC): 4 (Requires 2 person for hygiene) Toilet Transfer (QC): 4 Education OT Patient Education: Correct positioning, Modified ADL techniques, Progress toward Goal/Update tx plan, Reviewed precautions, Safety issues, Transfer techniques, Use of adapted equipment Teaching Recipient: Patient Teaching Methods: Demonstration, Discussion, Audiovisual Response to Teaching: Reinforcement Needed OT Short Term Goals Short Term Goals Time Frame: Apr 12, 2022 Toileting hygiene: 31 OT Dance Choreographer Goals Dance Choreographer Goals Time Frame: Apr 23, 2022 Eating (QC): 5 Oral Hygiene (QC): 5 Toileting Hygiene (QC): 4 Shower/Bathe Self (QC): 3 Upper Body Dressing (QC): 4 Lower Body Dressing (QC): 3 On/Off Footwear (QC): 3 Additional Goals: 1-Demonstrate ADL Tasks, 2-Verbalize Understanding, 3- ImproveStrength/Rian 1=Demonstrate adherence to instructed precautions during ADL tasks. 2=Patient will verbalize/demonstrate understanding of assistive devices/modifications for ADL. 3=Patient will improve strength/tolerance for activity to enable patient to perform ADL's. OT Education/Plan Discharge Recommendations Plan/Recommendations: Continue POC Barriers to Progress Impulsive and confused Treatment Plan/Plan of Care Treatment,Training & Education: Yes Patient would benefit from OT for education, treatment and training to promote independence in ADL's, mobility, safety and/or upper extremity function for ADL's. Plan of Care: ADL Retraining, Caregiver Training, Cognitive Retraining, Functional Mobility, UE Funct Exercise/Act Treatment Duration: Apr 23, 2022 Frequency: 3 times per week (3-5 times per week) Rehab Potential: Guarded Time Start Time: 09:50 Stop Time: 10:20 DATE: Apr 12, 2022 Total Time Billed (hr/min): 31 Billed Treatment Time 2 ADLs 31 minutes ANNE VILLALBA OT Apr 12, 2022 10:28
--- NOTE | 2022-04-12 10:34 | Physical Therapy Daily Note ---
PT Daily Note-Current Subjective Patient very confused on this date. Pain Section J - Health Conditions 1. Rarely or not at all 2. Occasionally 3. Frequently 4. Almost constantly 8. Unable to answer Pain Effect on Sleep: 8 Pain Interference with Therapy: 8 Pain Interference w/Day-to-Day: 8 Mental Status Patient Orientation: Confused Transfers SCALE: Activities may be completed with or without assistive devices. 9-Kgpfkbokpl-jaynpbm completes the activity by him/herself with no assistance from a helper. 5-Set-up or Clean-up Assistance-helper sets up or cleans up; patient completes activity. [place] assists only prior to or following the activity. 4-Supervision or Touching Assistance-helper provides verbal cues and/or touching/steadying and/or contact guard assistance as patient completes activity. Assistance may be provided throughout the activity or intermittently. 3-Partial/Moderate Assistance-helper does LESS THAN HALF the effort. [place] lifts, holds or supports trunk or limbs, but provides less than half the effort. 2-Substantial/Maximal Assistance-helper does MORE THAN HALF the effort. [place] lifts or holds trunk or limbs and provides more than half the effort. 6-Cnnewjjcs-bwvtjc does ALL the effort. Patient does none of the effort to complete the activity. Or, the assistance of 2 or more helpers is required for the patient to complete the activity. If activity was not attempted, code reason: 7-Patient Refused. 9-Not Applicable-not attempted and the patient did not perform the activity before the current illness, exacerbation or injury. 10-Not Attempted due to Environmental Limitations-(lack of equipment, weather restraints, etc.). 88-Not Attempted due to Medical Conditions or Safety Concerns. Exercises Supine Ex: Heel Slides, Straight leg raise Supine Reps: 12 (AAROM) Assessment Patient became slightly agitated and treatment ceased. RN requests for patient to not be OOB due to confusion and impulsive behavior. PT Detention Goals Repair Welder Goals PT Repair Welder Goals Time Frame: Apr 24, 2022 Roll Left & Right (QC): 4 Sit to Lying (QC): 4 Lying-Sitting on Side/Bed(QC): 4 Sit to Stand (QC): 4 Chair/Yor-ch-Fjoye Xfer(QC): 4 Toilet Transfer (QC): 4 Walk 10 feet (QC): 4 Walk 50ft with 2 Turns (QC): 4 Walk 150 ft (QC): 4 PT Plan Treatment/Plan Treatment Plan: Continue Plan of Care Treatment Plan: Bed Mobility, Education, Functional Activity Rian, Functional Strength, Gait, Safety, Therapeutic Exercise, Transfers Treatment Duration: Apr 24, 2022 Frequency: 6 times per week Estimated Hrs Per Day: .25 hour per day Patient and/or Family Agrees t: Yes Time Time In: 900 Time Out: 908 DATE: Apr 12, 2022 Total Billed Treatment Time: 8 Total Billed Treatment 1 visit EX 8 min CURRY DOWNEY PT Apr 12, 2022 10:33
--- NOTE | 2022-04-12 11:17 | Discharge Summary ---
Discharge Summary Hospital Course Problems/Diagnosis: (1) GI bleed Status: Acute Assessment & Plan: s/p EGD with lido and epi injection and second EGD for follow up showing no active bleed. Anemia stable after treatment and transfusions. Anticoagulation held. Qualifiers: Qualified Codes: K25.4 - Chronic or unspecified gastric ulcer with hemorrhage (2) Atrial fibrillation with controlled ventricular rate Status: Chronic Assessment & Plan: Holding anticoagulation due to lifethreatening GI bleed. (3) Dementia Status: Chronic (4) Episode of syncope Status: Acute Assessment & Plan: Due to anemia/hypotension. Hospital Course Date of Admission: Apr 07, 2022 at 01:30 Admission Diagnosis : See problem list Family Physician/Provider: Fantasma Chin MD Date of Discharge: 04/12/22 Discharge Diagnosis: See problem list Hospital Course: Pt admitted and underwent EGD as noted, found to have gastritis and bleeding gastric ulcer treated. Discharged on BID PPI back to nursing facility when hemoglobin stable. Labs and Pending Lab Test: Laboratory Tests 04/11/22 17:31: Glucometer 133H 04/12/22 00:13: Glucometer 108 04/12/22 05:27: Glucometer 112H 04/12/22 05:53: White Blood Count 7.2, Red Blood Count 2.75L, Hemoglobin 8.6L, Hematocrit 25L, Mean Corpuscular Volume 92, Mean Corpuscular Hemoglobin 31, Mean Corpuscular Hemoglobin Concent 34, Red Cell Distribution Width 13.7, Platelet Count 306, Mean Platelet Volume 10.3, Immature Granulocyte % (Auto) 2, Neutrophils (%) (Auto) 60, Lymphocytes (%) (Auto) 19, Monocytes (%) (Auto) 15H, Eosinophils (%) (Auto) 4, Basophils (%) (Auto) 1, Neutrophils # (Auto) 4.3, Lymphocytes # (Auto) 1.4, Monocytes # (Auto) 1.1H, Eosinophils # (Auto) 0.3, Basophils # (Auto) 0.0, Immature Granulocyte # (Auto) 0.1, Sodium Level 139, Potassium Level 3.0L, Chloride Level 107, Carbon Dioxide Level 24, Anion Gap 8, Blood Urea Nitrogen 8, Creatinine 0.64, Estimat Glomerular Filtration Rate 98, BUN/Creatinine Ratio 13, Glucose Level 109H, Calcium Level 8.4L, Corrected Calcium 9.2, Magnesium Level 1.9, Total Bilirubin 0.6, Aspartate Amino Transf (AST/SGOT) 14, Alanine Aminotransferase (ALT/SGPT) 8, Alkaline Phosphatase 52, Total Protein 5.2L, Albumin 3.0L Microbiology 04/09/22 MRSA Screen - Final, Complete MRSA not isolated 04/07/22 Blood Culture - Final, Complete Corynebacterium species See Comments Home Meds Active Reported Divalproex Sodium 250 Mg Tablet.dr 250 Mg PO HS Atorvastatin Calcium 80 Mg Tablet 80 Mg PO 1800 Amlodipine Besylate 10 Mg Tablet 10 Mg PO 0800 Ondansetron Odt (Ondansetron) 4 Mg Tab.rapdis 4 Mg SL Q8H PRN Pepcid (Famotidine) 20 Mg Tablet 20 Mg PO DAILY PRN Tylenol (Acetaminophen) 325 Mg Tablet 650 Mg PO Q4H PRN Gabapentin 100 Mg Capsule 100 Mg PO TID Metoprolol Succinate 100 Mg Tab.er.24h 100 Mg PO BID HOLD IF SYSTOLIC IS <110 OR PULSE <60 Metformin HCl 500 Mg Tablet 500 Mg PO BID Eliquis (Apixaban) 5 Mg Tablet 5 Mg PO BID Divalproex Sodium 125 Mg Tablet.dr 125 Mg PO BID Vitamin B-12 (Cyanocobalamin (Vitamin B-12)) 1,000 Mcg Tablet.er 1,000 Mcg PO 0600 Oxybutynin Chloride ER (Oxybutynin Chloride) 5 Mg Tab.er.24 5 Mg PO 0800 Mirtazapine 15 Mg Tab.rapdis 15 Mg PO HS Methylphenidate HCl 5 Mg Tablet 5 Mg PO 0800 Melatonin 3 Mg Tablet 3 Mg PO HS Lisinopril 20 Mg Tablet 20 Mg PO 0800 HOLD FOR SBP <100 OR PULSE <80 Hydrochlorothiazide 12.5 Mg Tablet 12.5 Mg PO 0800 Assessment/Pt DC Instructions Follow up with primary within a week of d/c. Discharge Diet: Other Diet (minced and moist) Activity as Tolerated: Yes Discharge Physical Examination Allergies: Coded Allergies: nitrofurantoin (Verified Allergy, Unknown, 08/22/21) General Appearance: No Apparent Distress Respiratory: Lungs Clear Cardiovascular: Regular Rate, Rhythm, No Murmur Gastrointestinal: Normal Bowel Sounds, Non Tender, Soft Extremity: Pedal Edema (trace) Neurologic/Psychiatric: Alert, Other (oriented to self and location, mildly confused, requesting to have a full gallon of whole milk in his room as he doesn't like the 2%) RED PRASAD MD Apr 12, 2022 11:17
[2022-04-12] MEDS ORDERED: PANT40TA52 PO (11:20)
[2022-04-12 11:49] VITALS: BP 111/67
[2022-04-12 13:05] VITALS: BP 111/67
[2022-04-12 15:09] VITALS: BP 120/60
--- NOTE | 2022-04-13 08:09 | Anesthesia-General Post-Op ---
MAC Post Op Complications Complications None Follow Up Care/Instructions Patient Instructions None needed. Anesthesiology Discharge Order Discharge Order Post-dated progress note: Patient was seen on 04-09-22 at approximately 1445 after the procedure and he was doing well, no complaints, stable vital signs, no apparent adverse anesthesia problems. No complications reported per nursing. CLARA HOOVER DO Apr 13, 2022 08:09
== END 2022-04-12 17:22 | disposition short-term general hospital (02) | DRG 378 ==
LOC: EDUNIT# 23:50 → ER 23:51 → ICU 04-07 01:30 → 4TH 04-08 14:20
PROVIDERS: ADMIT Internal Medicine; ATTEND Family Medicine
PROC: 3E0G8GC Introduction of Other Therapeutic Substance into Upper GI, Via Natural or Artificial Opening Endoscopic (ICD-10-PCS; principal; 2022-04-07 12:35)
PROC: 0DB68ZX Excision of Stomach, Via Natural or Artificial Opening Endoscopic, Diagnostic (ICD-10-PCS; 2022-04-09)
DX: K25.4 Chronic or unspecified gastric ulcer with hemorrhage (principal); D68.9 Coagulation defect, unspecified; I48.20 Chronic atrial fibrillation, unspecified; F03.90 Unspecified dementia, unspecified severity, without behavioral disturbance, psychotic disturbance, mood disturbance, and anxiety; R55 Syncope and collapse; D64.9 Anemia, unspecified; I95.9 Hypotension, unspecified; K29.71 Gastritis, unspecified, with bleeding; Z86.73 Personal history of transient ischemic attack (TIA), and cerebral infarction without residual deficits; D72.829 Elevated white blood cell count, unspecified; Z66 Do not resuscitate; R41.82 Altered mental status, unspecified; Z95.0 Presence of cardiac pacemaker; J44.9 Chronic obstructive pulmonary disease, unspecified; G47.33 Obstructive sleep apnea (adult) (pediatric); K21.9 Gastro-esophageal reflux disease without esophagitis; E11.40 Type 2 diabetes mellitus with diabetic neuropathy, unspecified; Z79.01 Long term (current) use of anticoagulants; N40.0 Benign prostatic hyperplasia without lower urinary tract symptoms; F41.9 Anxiety disorder, unspecified; F32.A Depression, unspecified; Z20.822 Contact with and (suspected) exposure to COVID-19
CPT/HCPCS: 36415; 51702; 70450; 70486; 71045; 71260; 72125; 72128; 72131; 72170; 74177; 80053; 80164; 81000; 82274; 82947; 83605; 83735; 84100; 84145; 84484; 85007; 85025; 85027; 85610; 85730; 86850; 86900; 86901; 86920; 87040; 87081; 87636; 93005; 93041; 94760; 96361; 96365; 96366; 96375

== ENCOUNTER 2022-04-21 09:08 | Inpatient (IN) | payer MEDICARE, MEDICAID ==
[~2022-04-21] VITALS: Ht 183 cm; Wt 113.0 kg
[2022-04-21] VITALS (18 sets, daily range): BP systolic 84–168; BP diastolic 44–86
[~2022-04-21 09:08] MED LIST changes: +ACET325T38 PO; +AMLO-251 PO; +APIX5TAB PO; +ATOR80TA76 PO; +CYAN10007 PO; +DIVA-74 PO; +DIVA125T32 PO; +FAMO-119 PO; +GABA-486 PO; +HYDR12.56 PO; +LISI20TA26 PO; +MELA3TAB39 PO; +METF-397 PO; +METH5TAB86 PO; +MIRT-47 PO; +MTP100TCR PO; +ONDA4TAB11 SL; +OXYB-52 PO; +PANT40TA52 PO
[2022-04-21 09:24] LABS: BASOPHILS # (AUTO) 0.1 10^3/uL (0.0-0.1); BASOPHILS % (AUTO) 1 % (0-10); EOSINOPHILS # (AUTO) 0.3 10^3/uL (0.0-0.3); EOSINOPHILS % (AUTO) 3 % (0-10); HEMATOCRIT 32 % (40-54); HEMOGLOBIN 10.6 g/dL (13.3-17.7); LYMPHOCYTES # (AUTO) 1.3 10^3/uL (1.0-4.0); LYMPHOCYTES % (AUTO) 12 % (12-44); MEAN CORPUSCULAR HEMOGLOBIN 31 pg (25-34); MEAN CORPUSCULAR HGB CONC 33 g/dL (32-36); MEAN CORPUSCULAR VOLUME 93 fL (80-99); MEAN PLATELET VOLUME 9.7 fL (9.0-12.2); MONOCYTES # (AUTO) 1.4 10^3/uL (0.0-1.0); MONOCYTES % (AUTO) 13 % (0-12); NEUTROPHILS # (AUTO) 7.6 10^3/uL (1.8-7.8); NEUTROPHILS % (AUTO) 71 % (42-75); PLATELET COUNT 523 10^3/uL (130-400); WHITE BLOOD COUNT 10.6 10^3/uL (4.3-11.0)
[2022-04-21 09:29] LABS: ABG BASE EXCESS 0.1 MMOL/L (-2.5-2.5); ABG OXYGEN SATURATION 99 % (94-100); ABG PCO2 46 MMHG (35-45); ABG PH 7.35 (7.37-7.43); ABG PO2 107 MMHG (79-93); ABG TCO2 26.6 MMOL/L (21.0-31.0)
[2022-04-21 09:30] LABS: ALLENS TEST POSITIVE; INSPIRED O2 10 L; PATIENT TEMP 97.7; VENTILATOR NO
[2022-04-21 09:35] LABS: ALBUMIN 3.5 GM/DL (3.2-4.5); POTASSIUM 3.9 MMOL/L (3.6-5.0)
[2022-04-21 09:37] LABS: CALCIUM 9.1 MG/DL (8.5-10.1)
[2022-04-21 09:38] LABS: TOTAL PROTEIN 6.4 GM/DL (6.4-8.2)
[2022-04-21 09:41] LABS: CREATININE SERUM 0.69 MG/DL (0.60-1.30)
--- NOTE | 2022-04-21 09:53 | ED General ---
General Chief Complaint: Unresponsive Stated Complaint: UNRESPONSIVE Nursing Triage Note: Pt arrived via EMS from [facility] and rehab. Pt was found unresponsive. unknown downtime. Patient arrived unresponsive with CPAP in place. Recently discharged from hospital with GI bleed. RT and Doc in room at this time. Source of Information: Patient Exam Limitations: No Limitations History of Present Illness Date Seen by Provider: Apr 21, 2022 Time Seen by Provider: 09:05 Initial Comments Patient arrives from [facility] for unresponsiveness. EMS state last known well was last night and he found him unresponsive this morning. On EMS arrival he was unresponsive. Blood sugar was 167. Placed him on CPAP as he had significant respiratory distress. Significantly he was recently discharged from the hospital with an upper GI bleed. He had bleeding ulcers which were cauterized at that time. He has continued to have dark stools according to [facility]ci report. He is a DNR/DNI, confirmed with his daughter Ora via telephone on arrival. Allergies and Home Medications Allergies Coded Allergies: nitrofurantoin (Verified Allergy, Unknown, 08/22/21) Patient Home Medication List Home Medication List Reviewed: Yes Acetaminophen (Tylenol) 325 Mg Tablet, 650 MG PO Q4H PRN for PAIN-MILD (1-4), (Reported) Entered as Reported by: KAMRYN ESCOBEDO on 04/08/221352 Last Action: Reviewed Amlodipine Besylate (Amlodipine Besylate) 10 Mg Tablet, 10 MG PO DAILY, (Reported) Entered as Reported by: KAMRYN ESCOBEDO on 04/08/221358 Last Action: Reviewed Atorvastatin Calcium (Atorvastatin Calcium) 80 Mg Tablet, 80 MG PO 1800, (Reported) Entered as Reported by: KAMRYN ESCOBEDO on 04/08/221358 Last Action: Reviewed Cyanocobalamin (Vitamin B-12) (Vitamin B-12) 1,000 Mcg Tablet.er, 1,000 MCG PO DAILY, (Reported) Entered as Reported by: KAMRYN ESCOBEDO on 04/08/221352 Last Action: Reviewed Divalproex Sodium (Divalproex Sodium) 125 Mg Tablet.dr, 125 MG PO BID, (Reported) Entered as Reported by: KAMRYN ESCOBEDO on 04/08/221352 Last Action: Reviewed Divalproex Sodium (Divalproex Sodium) 250 Mg Tablet.dr, 250 MG PO HS, (Reported) Entered as Reported by: KAMRYN ESCOBEDO on 04/08/221358 Last Action: Reviewed Famotidine (Pepcid) 20 Mg Tablet, 20 MG PO DAILY PRN for HEARTBURN, (Reported) Entered as Reported by: KAMRYN ESCOBEDO on 04/08/221352 Last Action: Reviewed Ferrous Gluconate (Ferrous Gluconate) 324 Mg (37.5 Mg Iron) Tablet, 324 MG PO DAILY, (Reported) Entered as Reported by: DELL THACKER on 04/21/22 153 Last Action: Reviewed Gabapentin (Gabapentin) 100 Mg Capsule, 100 MG PO TID, (Reported) Entered as Reported by: KAMRYN ESCOBEDO on 04/08/221352 Last Action: Reviewed Hydrochlorothiazide (Hydrochlorothiazide) 12.5 Mg Tablet, 12.5 MG PO DAILY, (Reported) Entered as Reported by: KAMRYN ESCOBEDO on 04/08/221352 Last Action: Reviewed Lisinopril (Lisinopril) 20 Mg Tablet, 20 MG PO DAILY, (Reported) Entered as Reported by: KAMRYN ESCOBEDO on 04/08/221352 Last Action: Reviewed Melatonin (Melatonin) 3 Mg Tablet, 3 MG PO HS, (Reported) Entered as Reported by: KAMRYN ESCOBEDO on 04/08/221352 Last Action: Reviewed Metformin HCl (Metformin HCl) 500 Mg Tablet, 500 MG PO BID, (Reported) Entered as Reported by: KAMRYN ESCOBEDO on 04/08/221352 Last Action: Reviewed Methylphenidate HCl (Methylphenidate HCl) 5 Mg Tablet, 5 MG PO DAILY, (Reported) Entered as Reported by: KAMRYN ESCOBEDO on 04/08/221352 Last Action: Reviewed Metoprolol Succinate (Metoprolol Succinate) 100 Mg Tab.er.24h, 100 MG PO BID, (Reported) Entered as Reported by: KAMRYN ESCOBEDO on 04/08/221352 Last Action: Reviewed Mirtazapine (Mirtazapine) 15 Mg Tab.rapdis, 15 MG PO HS, (Reported) Entered as Reported by: KAMRYN ESCOBEDO on 04/08/221352 Last Action: Reviewed Ondansetron (Ondansetron Odt) 4 Mg Tab.rapdis, 4 MG SL Q8H PRN for NAUSEA/VOMITING-1ST LINE, (Reported) Entered as Reported by: KAMRYN ESCOBEDO on 04/08/22 1353 Last Action: Reviewed Oxybutynin Chloride (Oxybutynin Chloride ER) 5 Mg Tab.er.24, 5 MG PO DAILY, (Reported) Entered as Reported by: KAMRYN ESCOBEDO on 04/08/22 1353 Last Action: Reviewed Pantoprazole Sodium (Pantoprazole Sodium) 40 Mg Tablet., 40 MG PO BID, (Rep orted) Entered as Reported by: DELL THACKER on 04/21/22 1535 Last Action: Reviewed Discontinued Medications Pantoprazole Sodium (Pantoprazole Sodium) 40 Mg Tablet.dr, 40 MG PO BID Discontinued Reason: Duplicate Order Prescribed by: RED PRASAD on 04/12/22 1120 Last Action: Discontinued Review of Systems Review of Systems Constitutional: other (Unable to obtain review of systems as patient is unresponsive) Past Iyysutq-Ovwcrl-Negvwc Hx Past Medical History Surgery/Hospitalization HX: Unable to obtain social, medical, surgical or family history as patient is unresponsive. All history documented is from previous visits. Surgeries: Yes Appendectomy, Pacemaker, Prostatectomy Respiratory: Yes Sleep Apnea, COPD Cardiac: Yes Atrial Fibrillation, High Cholesterol, Hypertension 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) Dementia, Neuropathy, Stroke Reproductive Disorders: No Sexually Transmitted Disease: No HIV/AIDS: No Genitourinary: Yes (RENAL CYST; PROSTATECTOMY --PT DENIES CANCER, ONLY ENLARGED PROSTATE) Benign Prostatic Hyperpl, Prostate Problems Gastrointestinal: Yes (S/P APPENDECTOMY) Gastroesophageal Reflux Musculoskeletal: Yes (GENERALIZED WEAKNESS) Endocrine: Yes (PROTEIN-CALORIE MALNUTRITION) Diabetes, Non-Insulin dep HEENT: Yes (TEETH REMOVED/DENTURES IN PLACE) Psychosocial: Yes (PSEUDOBULBAR AFFECT; S/P CVA; DEMENTIA; MOOD DISORDER) Sleep Difficulties, Anxiety, Depression Integumentary: No Blood Disorders: No Family Medical History No Pertinent Family Hx Physical Exam Vital Signs Vital Signs - First Documented 04/21/22 09:08 Temp 37.0 Pulse 92 Resp 32 B/P (MAP) 99/75 (83) Pulse Ox 96 O2 Delivery NIV CPAP O2 Flow Rate 10.00 Capillary Refill : Less Than 3 Seconds Height, Weight, BMI Height: '" Weight: lbs. oz. kg; 33.00 BMI Method: General Appearance: Severe Distress (Severe respiratory distress) HEENT: Other (Dry mucous membranes) Neck: Supple Respiratory: Other (Severe respiratory distress with rhonchorous breath sounds bilaterally) Cardiovascular: Tachycardia Gastrointestinal: Soft Extremity: Normal Inspection Neurologic/Psychiatric: Other (Unresponsive) Focused Exam Lactate Level 04/21/22 09:58: Lactic Acid Level 1.33 Lactic Acid Level Laboratory Tests Test 04/21/22 09:58 Lactic Acid Level 1.33 MMOL/L (0.50-2.00) Progress/Results/Core Measures Suspected Sepsis SIRS Temperature: Pulse: 92 Respiratory Rate: 32 Laboratory Tests 04/21/22 09:12: White Blood Count 10.6 Blood Pressure 99 /75 Mean: 83 04/21/22 09:58: Lactic Acid Level 1.33 Laboratory Tests 04/21/22 09:12: Creatinine 0.69, Platelet Count 523H, Total Bilirubin 1.0 Results/Orders Lab Results Laboratory Tests Test 04/21/22 09:12 04/21/22 09:17 04/21/22 09:58 04/21/22 10:30 Range/Units White Blood Count 10.6 4.3-11.0 10^3/uL Red Blood Count 3.42 L 4.30-5.52 10^6/uL Hemoglobin 10.6 L 13.3-17.7 g/dL Hematocrit 32 L 40-54 % Mean Corpuscular Volume 93 80-99 fL Mean Corpuscular Hemoglobin 31 25-34 pg Mean Corpuscular Hemoglobin Concent 33 32-36 g/dL Red Cell Distribution Width 13.4 10.0-14.5 % Platelet Count 523 H 130-400 10^3/uL Mean Platelet Volume 9.7 9.0-12.2 fL Immature Granulocyte % (Auto) 0 % Neutrophils (%) (Auto) 71 42-75 % Lymphocytes (%) (Auto) 12 12-44 % Monocytes (%) (Auto) 13 H 0-12 % Eosinophils (%) (Auto) 3 0-10 % Basophils (%) (Auto) 1 0-10 % Neutrophils # (Auto) 7.6 1.8-7.8 10^3/uL Lymphocytes # (Auto) 1.3 1.0-4.0 10^3/uL Monocytes # (Auto) 1.4 H 0.0-1.0 10^3/uL Eosinophils # (Auto) 0.3 0.0-0.3 10^3/uL Basophils # (Auto) 0.1 0.0-0.1 10^3/uL Immature Granulocyte # (Auto) 0.0 0.0-0.1 10^3/uL Sodium Level 137 135-145 MMOL/L Potassium Level 3.9 3.6-5.0 MMOL/L Chloride Level 105 98-107 MMOL/L Carbon Dioxide Level 23 21-32 MMOL/L Anion Gap 9 5-14 MMOL/L Blood Urea Nitrogen 6 L 7-18 MG/DL Creatinine 0.69 0.60-1.30 MG/DL Estimat Glomerular Filtration Rate 95 BUN/Creatinine Ratio 9 Glucose Level 115 H 70-105 MG/DL Calcium Level 9.1 8.5-10.1 MG/DL Corrected Calcium 9.5 8.5-10.1 MG/DL Total Bilirubin 1.0 0.1-1.0 MG/DL Aspartate Amino Transf (AST/SGOT) 11 5-34 U/L Alanine Aminotransferase (ALT/SGPT) 7 0-55 U/L Alkaline Phosphatase 66 40-136 U/L Total Protein 6.4 6.4-8.2 GM/DL Albumin 3.5 3.2-4.5 GM/DL Blood Gas Puncture Site RIGHT RADIAL Blood Gas Patient Temperature 97.7 Arterial Blood pH 7.35 L 7.37-7.43 Arterial Blood Partial Pressure CO2 46 H 35-45 MMHG Arterial Blood Partial Pressure O2 107 H 79-93 MMHG Arterial Blood HCO3 25 23-27 MMOL/L Arterial Blood Total CO2 26.6 21.0-31.0 MMOL/L Arterial Blood Oxygen Saturation 99 94-100 % Arterial Blood Base Excess 0.1 -2.5-2.5 MMOL/L Narendra Test POSITIVE Blood Gas Ventilator Setting NO Blood Gas Inspired Oxygen 10 L Lactic Acid Level 1.33 0.50-2.00 MMOL/L Influenza Type A (RT-PCR) Not Detected Not Detecte Influenza Type B (RT-PCR) Not Detected Not Detecte SARS-CoV-2 RNA (RT-PCR) Not Detected Not Detecte Micro Results Microbiology 04/21/22 Blood Culture - Preliminary, Resulted No growth 04/21/22 Blood Culture - Preliminary, Resulted No growth My Orders Orders - MATTIE WALDROP DO Type And Screen (04/21/22 09:17) Lactic Acid Analyzer (04/21/22 09:17) Cbc With Automated Diff (04/21/22 09:17) Comprehensive Metabolic Panel (04/21/22 09:17) Arterial Blood Gas (04/21/22 09:17) Arterial Blood Draw - Obtain (04/21/22 09:17) Chest 1 View, Ap/Pa Only (04/21/22 09:36) Covid 19 Inhouse Test (04/21/22 09:38) Influenza A And B By Pcr (04/21/22 09:38) Ct Head Wo (04/21/22 09:56) Ct Abdomen/Pelvis Wo (04/21/22 09:56) Piperacillin Sodium/Tazobactam (Zosyn Vi (04/21/22 10:45) Blood Culture (04/21/22 10:39) Ed Iv/Invasive Line Start (04/21/22 10:39) Vital Signs Adult Sepsis Patie Q15M (04/21/22 10:39) O2 (04/21/22 10:39) Ns Iv 1000 Ml (Sodium Chloride 0.9%) (04/21/22 10:45) Code/Resuscitation (04/21/22 10:51) Morphine Injection (Morphine Injection (04/21/22 10:52) Ed Admission (Communication) (04/21/22 12:09) Medications Given in ED Vital Signs/I&O 04/21/22 04/21/22 09:08 11:08 Temp 37.0 Pulse 92 105 Resp 32 40 B/P (MAP) 99/75 (83) Pulse Ox 96 99 O2 Delivery NIV CPAP O2 Flow Rate 10.00 50.00 Capillary Refill : Less Than 3 Seconds Blood Pressure Mean: 83 Critical Care Note Critical Care Total Time (minutes) 75 Departure Communication (Admissions) Immediately upon patient arrival I talked with his daughter who verifies he is a DNR/DNI but she is not yet ready to pursue comfort measures. The patient is in severe respiratory distress, responsive only to deep painful stimuli. He is hypoxic. He started on BiPAP this nursing really no other means to help with his respiratory status at this time. His ABG is actually not too bad, somewhat reassuring. CT of his brain obtained for altered mentation. This is negative. CT of his abdomen pelvis obtained with his recent intra-abdominal instrumentation, EGD wanted to rule out perforation. This was negative for any intra-abdominal pathology however he does appear to have pneumonia. Blood cultures were drawn and started on broad-spectrum antibiotics. His CBC does not show any evidence for significant anemia that required blood transfusion in light of his recent upper GI bleed. CMP is also reassuring however overall patient picture is quite grim. He appears to be struggling to breathe and unfortunately due to his DNR/DNI status there is not really much more support that we can give him. Again I did speak with his daughter about comfort measures as she has not really been ready to make that decision at this time. With that the patient is admitted to the hospitalist in critical condition with severe respiratory distress. Impression Primary Impression: HCAP (healthcare-associated pneumonia) Additional Impressions: Sepsis Qualified Codes: A41.9 - Sepsis, unspecified organism Respiratory failure Qualified Codes: J96.01 - Acute respiratory failure with hypoxia; J96.02 - Acute respiratory failure with hypercapnia Disposition: ADMITTED INPATIENT Condition: Critical Departure-Patient Inst. Referrals: [facility] (PCP) Primary Care Physician KIRSTEN NAZARIO MD (Family) Primary Care Physician MATTIE WALDROP DO Apr 21, 2022 09:53
--- NOTE | 2022-04-21 09:56 | Diagnostic Imaging Report ---
EXAM: CHEST 1 VIEW, AP/PA ONLY INDICATION: Altered mental status. Dyspnea. COMPARISON: Chest radiograph 04/07/2022. FINDINGS: Low lung volumes accentuate the heart size. No focal pulmonary opacity. No pleural effusion or pneumothorax. Cardiac pacer. No acute osseous findings. IMPRESSION: Low lung volumes. Chest otherwise unremarkable. Dictated by: Dictated on workstation # [id number]
--- NOTE | 2022-04-21 10:32 | Diagnostic Imaging Report ---
EXAMINATION: CT head without contrast. TECHNIQUE: Multiple contiguous axial images were obtained through the brain without the use of intravenous contrast. All CT scans use one or more of the following dose optimizing techniques: automated exposure control, MA and/or KvP adjustment based on patient size and exam type or iterative reconstruction. HISTORY: Altered mental status. Found down. COMPARISON: 04/07/2022. 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 No evidence of acute hemorrhage. No new areas of large acute territorial ischemia. No acute hydrocephalus. No midline shift or mass effect. The orbits are normal. Retained secretions are seen in the bilateral maxillary sinuses. Mastoid air cells are clear. No soft tissue abnormality is seen. No osseus lesions or fractures are seen. IMPRESSION: 1. No large acute territorial ischemia. No acute hemorrhage or hydrocephalus. 2. Stable area of chronic encephalomalacia in the left frontal lobe. Dictated by: Dictated on workstation # [id number]
--- NOTE | 2022-04-21 10:42 | Diagnostic Imaging Report ---
PROCEDURE: CT abdomen and pelvis without contrast. TECHNIQUE: Multiple contiguous axial images were obtained through the abdomen and pelvis without the use of intravenous contrast. Auto Exposure Controls were utilized during the CT exam to meet ALARA standards for radiation dose reduction. INDICATION: Unresponsive. Recent history of gastrointestinal bleed. COMPARISON: 04/07/2022. FINDINGS: The heart is prominent. A small left-sided pleural effusion is seen with bibasilar opacities. A small amount of gallstones are seen layering within the gallbladder lumen. No CT evidence of acute cholecystitis. The liver, spleen, pancreas, adrenal glands, and kidneys have a normal noncontrast CT appearance. There is no pathologically enlarged mesenteric or retroperitoneal adenopathy. The bowel loops are nondilated. There is no free fluid or free air. No acute osseous abnormalities. There is calcified aortic and iliac atherosclerotic plaque without aneurysm. The urinary bladder is decompressed with a Kim in place. There is no free air, loculated collection, or adenopathy in the pelvis. IMPRESSION: 1. No bowel obstruction. No free fluid or free air. 2. Small left-sided pleural effusion with bibasilar opacities. 3. Cardiomegaly. 4. Cholelithiasis without CT evidence of acute cholecystitis. Dictated by: Dictated on workstation # [id number]
[2022-04-21] MEDS ORDERED: PIPERACILLIN SODIUM/TAZOBACTAM 4.5 GM in NS (IVPB) 100 ML IV ONE (10:45)
[2022-04-21] MEDS ORDERED: NS IV 1000 ML 1,000 ML IV SCH (10:45)
[2022-04-21] MEDS ORDERED: morphine INJ 10 MG/ML 1ML (SYR OR VIAL) IVP STA ×2 (10:52→13:15)
[2022-04-21] MEDS ORDERED: morphine INJ 10 MG/ML 1ML (SYR OR VIAL) ONE (13:09)
[2022-04-21] MEDS ORDERED: LORazepam INJ 2 MG/ML (ATIVAN) VIAL ONE (13:11)
[2022-04-21] MEDS ORDERED: diphenhydrAMINE 25 MG TAB (BENADRYL) PO PRN (14:00)
[2022-04-21] MEDS ORDERED: CALCIUM CARBONATE 500 MG (TUMS) TAB.CHEW PO PRN (14:00)
[2022-04-21] MEDS ORDERED: MELATONIN 3 MG TABLET PO PRN (14:00)
[2022-04-21] MEDS ORDERED: ANTACID SUSP 30 ML UDC (MYLANTA) PO PRN (14:00)
[2022-04-21] MEDS ORDERED: diphenhydrAMINE 50 MG/ML INJ (BENADRYL) IVP PRN (14:00)
[2022-04-21] MEDS ORDERED: ONDANSETRON 4 MG/2 ML (SDV) Z0FRAN IV PRN (14:00)
[2022-04-21] MEDS ORDERED: PHARMACY TO DOSE IV SCH (14:00)
[2022-04-21] MEDS ORDERED: BISACODYL 10 MG SUPP (DULCOLAX) PR PRN (14:00)
[2022-04-21] MEDS ORDERED: morphine INJ 4 MG/ML 1 ML (VIAL/SYRINGE) IV PRN (14:00)
[2022-04-21] MEDS ORDERED: ONDANSETRON 4 MG (ZOFRAN) ORAL DISSOLVE TAB PO PRN (14:00)
[2022-04-21] MEDS ORDERED: LORazepam ORAL CONCENTRATE 2 MG/ML 30 ML (ATIVAN) PO PRN (14:00)
[2022-04-21] MEDS ORDERED: MILK OF MAGNESIA 400 MG/5 ML 30 ML UDC PO PRN (14:00)
[2022-04-21] MEDS ORDERED: ENOXAPARIN 40 MG/0.4 ML (LOVENOX) SYR SC SCH (14:00)
[2022-04-21] MEDS ORDERED: ACETAMINOPHEN 325 MG TABLET PO PRN (14:00)
[2022-04-21] MEDS ORDERED: LORazepam INJ 2 MG/ML (ATIVAN) VIAL IVP PRN (14:00)
[2022-04-21] MEDS ORDERED: LACTULOSE SYRUP 10GM/15ML (ENULOSE) 30ML UDC PO PRN (14:00)
[2022-04-21] MEDS ORDERED: polyethylene glycoL POWDER 17 GM (MIRALAX) PACK PO PRN (14:00)
[2022-04-21] MEDS: NS IV 1000 ML 1,000 ML IV SCH (14:51)
[2022-04-21] MEDS ORDERED: VANCOMYCIN 2000 MG/NS 500 ML IVPB IV NR ×2 (15:00)
[2022-04-21] MEDS ORDERED: PANT40TA52 PO (15:35)
[2022-04-21] MEDS ORDERED: FERR324T22 PO (15:35)
[2022-04-21] MEDS: PIPERACILLIN SODIUM/TAZOBACTAM 4.5 GM in NS (IVPB) 100 ML IV SCH (17:17)
[2022-04-21] MEDS: RT-ALBUTEROL/IPRATROPIUM 3 ML (DUONEB) VIAL INH SCH ×2 (18:43→22:30)
--- NOTE | 2022-04-21 19:26 | History & Physical-Hospitalist ---
RADHA FRENCH 04/21/221925: History of Present Illness HPI/Chief Complaint Patient admitted on 04/21 from the ER after EMS found him unresponsive in his fpc. ER found him to be in significant respiratory distress and placed him on a CPAP; work-up revealed low lung volumes, a small left-sided pleural effusion with bibasilar opacities, cardiomegaly, and cholelithiasis. He was switched to BiPAP after pulse ox showed him to still be hypoxic (88-89%). He has been placed on cardiac step-down and is still unresponsive on BiPAP (20/8/100%). His daughter has been informed of his condition and is being updated by nursing staff. Date Seen 04/21/22 Attending Physician [place] PCP Admitting Physician: Zenobia Gutierrez DO Attending Physician: Zenobia Gutierrez DO Referring Physician Date of Admission Apr 21, 2022 at 12:10 Home Medications & Allergies Home Medications Reviewed patient Home Medication Reconciliation performed by pharmacy medication reconciliations brewery technician and/or nursing. Patients Allergies have been reviewed. Allergies Allergies Coded Allergies nitrofurantoin (Verified Allergy, Unknown, 08/22/21) Past Cchafuf-Xshidx-Qhsdhx Hx Immunizations Up To Date Date of Influenza Vaccine: Jan 12, 2022 Current Status Advance Directives: Unable to obtain Advance Directive Location: attempted to call fpc for DNR paperwork Communicates: Unable To Communicate Primary Language: Burundian Preferred Spoken Language: Burundian Past Medical History Surgeries: Appendectomy, Pacemaker, Prostatectomy Sleep Apnea, COPD Atrial Fibrillation, High Cholesterol, Hypertension Dementia, Neuropathy, Stroke Sexually Transmitted Disease: No HIV/AIDS: No Benign Prostatic Hyperpl, Prostate Problems Gastroesophageal Reflux Diabetes, Non-Insulin dep Sleep Difficulties, Anxiety, Depression Blood Disorders: No Family Medical History No Pertinent Family Hx Review of Systems Constitutional: other (unresponsive, on BiPAP) Physical Exam Physical Exam Vital Signs Vital Signs - First Documented 04/21/22 04/21/22 09:08 13:30 Temp 37.0 Pulse 92 Resp 32 B/P (MAP) 99/75 (83) Pulse Ox 96 O2 Delivery NIV CPAP O2 Flow Rate 10.00 FiO2 100 Capillary Refill : Less Than 3 Seconds Height, Weight, BMI Height: '" Weight: lbs. oz. kg; 33.74 BMI Method: General Appearance: Other (unresponsive on BiPAP) Respiratory: Crackles, Respiratory Distress, Rhonci Cardiovascular: Tachycardia Gastrointestinal: Normal Bowel Sounds Extremity: Normal Inspection Neurologic/Psychiatric: Other (unresponsive) Results Results/Procedures Labs Laboratory Tests 04/21/22 09:12 Patient resulted labs reviewed. Assessment/Plan Admission Diagnosis Acute hypoxic respiratory failure Sepsis Assessment and Plan 1. Acute respiratory failure - BiPAP (20/8/100%) 2. Sepsis - IV fluids - Vancomycin - Piperacillin 3. Hypotension - IV fluids Critical Care Ventilator Management ZENOBIA GUTIERREZ DO 04/22/22 0511: History of Present Illness HPI/Chief Complaint CC: Resp distress from facility acquired PNA HPI: This is a patient known to me from recent hospital stay for GIB who [facility] who remains [place] but came [place] in resp distress and remains tachypneic on biPAP but daughter not willing to transition to comfort care yet so will support until then. Source: RN/MD Exam Limitations: clinical condition Time Seen by a Provider: 13:00 Past Iqiivrj-Lddklx-Fqlabc Hx Patient Social History Marrital Status: single Review of Systems Constitutional: see HPI Physical Exam Physical Exam General Appearance: Moderate Distress (tachypenic 50 resp per minute), Other (unresponsive on BiPAP) Respiratory: Crackles, Respiratory Distress, Rhonci Assessment/Plan Admission Diagnosis resp failure Admission Status: Inpatient Order (span 2 midnights) Reason for Inpatient Admission: resp failure Supervisory-Addendum Brief Verification & Attestation Participated in pt care: history, MDM, physical Personally performed: exam, history, MDM, supervision of care Care discussed with: Medical Student Procedures: n/a Results interpretation: Verified all documentation Verification and Attestation of Medical Student E/M Service A medical student performed and documented this service in my presence. I reviewed and verified all information documented by the medical student and made modifications to such information, when appropriate. I personally performed the physical exam and medical decision making. Zenobia Gutierrez, Apr 22, 2022,05:11 RADHA FRENCH Apr 21, 2022 19:26 ZENOBIA GUTIERREZ DO Apr 22, 2022 05:11
[2022-04-21] MEDS ORDERED: RT-ALBUTEROL/IPRATROPIUM 3 ML (DUONEB) VIAL INH PRN (20:00)
[2022-04-21] MEDS: DOCUSATE SODIUM 100 MG (COLACE) CAP PO SCH (21:00)
[2022-04-21] MEDS: SENNOSIDES 8.6 MG (SENOKOT) TAB PO SCH (21:00)
[2022-04-22] VITALS: BP 126/66
[2022-04-22] MEDS: PIPERACILLIN SODIUM/TAZOBACTAM 4.5 GM in NS (IVPB) 100 ML IV SCH ×2 (00:34→08:11)
[2022-04-22 02:32] VITALS: BP 127/60
[2022-04-22] MEDS: RT-ALBUTEROL/IPRATROPIUM 3 ML (DUONEB) VIAL INH SCH ×3 (02:32→10:33)
[2022-04-22] MEDS ORDERED: VANCOMYCIN 1500 MG/NS 500 ML IVPB IV SCH ×2 (03:00)
[2022-04-22 03:43] VITALS: BP 116/65
[2022-04-22] MEDS: NS IV 1000 ML 1,000 ML IV SCH (04:18)
[2022-04-22 06:10] LABS: ALBUMIN 3.2 GM/DL (3.2-4.5)
[2022-04-22 06:12] LABS: CALCIUM 8.7 MG/DL (8.5-10.1)
[2022-04-22 06:13] LABS: TOTAL PROTEIN 5.9 GM/DL (6.4-8.2)
[2022-04-22 06:15] LABS: BILIRUBIN,TOTAL 0.8 MG/DL (0.1-1.0)
[2022-04-22 06:17] LABS: CREATININE SERUM 1.78 MG/DL (0.60-1.30)
[2022-04-22 06:18] LABS: BASOPHILS % (AUTO) 0 % (0-10); EOSINOPHILS # (AUTO) 0.2 10^3/uL (0.0-0.3); EOSINOPHILS % (AUTO) 1 % (0-10); HEMATOCRIT 31 % (40-54); LYMPHOCYTES # (AUTO) 0.4 10^3/uL (1.0-4.0); LYMPHOCYTES % (AUTO) 2 % (12-44); MEAN CORPUSCULAR HEMOGLOBIN 31 pg (25-34); MEAN CORPUSCULAR HGB CONC 32 g/dL (32-36); MEAN CORPUSCULAR VOLUME 95 fL (80-99); MONOCYTES # (AUTO) 1.3 10^3/uL (0.0-1.0); MONOCYTES % (AUTO) 7 % (0-12); NEUTROPHILS # (AUTO) 16.2 10^3/uL (1.8-7.8); NEUTROPHILS % (AUTO) 89 % (42-75); PLATELET COUNT 433 10^3/uL (130-400); WHITE BLOOD COUNT 18.3 10^3/uL (4.3-11.0)
[2022-04-22 06:37] VITALS: BP 96/61
[2022-04-22 06:40] LABS: BAND NEUTROPHILS 27 %; BASOPHILS % (MANUAL) 0 %; EOSINOPHILS % (MANUAL) 0 %; HYPOCHROMASIA SLIGHT; LYMPHOCYTES % (MANUAL) 4 %; MONOCYTES % (MANUAL) 5 %; NEUTROPHILS % (MANUAL) 64 %; POLYCHROMASIA SLIGHT
[2022-04-22 06:41] LABS: CRENATED RBC SLIGHT; POIKILOCYTOSIS SLIGHT; TARGET CELLS SLIGHT
[2022-04-22] MEDS: DOCUSATE SODIUM 100 MG (COLACE) CAP PO SCH (08:11)
[2022-04-22] MEDS: SENNOSIDES 8.6 MG (SENOKOT) TAB PO SCH (08:11)
[2022-04-22 10:33] VITALS: BP 133/64
[2022-04-22] MEDS ORDERED: NS IV 1000 ML 1,000 ML IV SCH (10:57)
[2022-04-22 12:22] VITALS: BP 118/59
[2022-04-22] MEDS ORDERED: RT-ALBUTEROL/IPRATROPIUM 3 ML (DUONEB) VIAL INH PRN (12:30)
[2022-04-22] MEDS ORDERED: LORazepam 1 MG (ATIVAN) TAB SL PRN ×2 (12:30→15:00)
[2022-04-22] MEDS ORDERED: GLYCOPYRROLATE 0.2 MG/ML (ROBINUL) 2 ML VIAL IV PRN (12:30)
[2022-04-22] MEDS ORDERED: morphine INJ 4 MG/ML 1 ML (VIAL/SYRINGE) IV PRN ×2 (12:30→15:00)
[2022-04-22] MEDS ORDERED: SCOPOLAMINE 1.5 MG (TRANSDERM-SCOP) PATCH TOP SCH (12:30)
[2022-04-22] MEDS ORDERED: SALIVA SUBSTITUTE 60 ML SPRAY(MOUTHKOTE) MM PRN (12:30)
[2022-04-22] MEDS ORDERED: BISACODYL 10 MG SUPP (DULCOLAX) PR PRN (12:30)
[2022-04-22] MEDS ORDERED: ATROPINE 1% OPHTHALMIC SOLN 2 ML SL PRN (12:30)
[2022-04-22] MEDS ORDERED: ARTIFICAL TEARS 0.4 ML UNIT DOSE (REFRESH PLUS) OU PRN (12:30)
[2022-04-22] MEDS ORDERED: ONDANSETRON 4 MG/2 ML (SDV) Z0FRAN IVP PRN (12:30)
[2022-04-22] MEDS ORDERED: ACETAMINOPHEN 650 MG SUPP (TYLENOL) PR PRN (12:30)
[2022-04-22] MEDS ORDERED: PROMETHAZINE INJ 25 MG/ML (PHENERGAN) AMP IVP PRN (12:30)
[2022-04-22] MEDS ORDERED: LORazepam INJ 2 MG/ML (ATIVAN) VIAL IVP PRN (15:00)
--- NOTE | 2022-04-22 15:54 | Progress Note - Hospitalist ---
RADHA FRENCH 04/22/22 1554: Subjective HPI/CC On Admission CC: Resp distress from facility acquired PNA HPI: This is a patient known to me from recent hospital stay for [facility]IB [facility] [place] [facility] who remains D[place] but came from [place] in resp distress and remains tachypneic on biPAP but daughter not willing to transition to comfort care yet so will support until then. Subjective/Events-last exam 76 yo M admitted from the ER on 04/21 unresponsive with acute respiratory failure secondary to facility acquired PNA. He had arrived to the ER from EMS who found him unresponsive in his senior care; he was placed on a CPAP due to significant respiratory distress and soon after transitioned to BiPAP after pulse-ox showed him to still be hypoxic (88-89%). Work-up revealed revealed low lung volumes, a small left-sided pleural effusion with bibasilar opacities, cardiomegaly, and cholelithiasis. History of significant for recent hospitalization for bleeding ulcers. On admission, he was placed on cardiac step-down. He remains unresponsive and tachypnic on BiPAP (20/6/80%). His DNR/DNI status has been confirmed by his daughter been receiving updates from nursing staff; today she permitted transition to comfort care. Focused Exam Lactate Level 04/21/22 09:58: Lactic Acid Level 1.33 Objective Exam Vital Signs Vital Signs Date Time Temp Pulse Resp B/P (MAP) Pulse Ox O2 Delivery O2 Flow Rate FiO2 04/22/22 12:58 103 04/22/22 12:22 37.7 28 118/59 (78) 97 NIV Bilevel 21.60 04/22/22 08:15 80 Capillary Refill : Less Than 3 Seconds General Appearance: Other (unresponsive) Respiratory: Respiratory Distress, Rhonci, Other (BiPAP dependent) Cardiovascular: Tachycardia Gastrointestinal: Normal Bowel Sounds Extremity: Normal Inspection Neurologic/Psychiatric: Other (unresponsive) Results/Procedures Lab Laboratory Tests 04/22/22 05:47 Patient resulted labs reviewed. Assessment/Plan Assessment and Plan Assess & Plan/Chief Complaint Comatose - comfort care measures initiated Acute respiratory failure / Facility Acquired PNA /Sepsis - BiPAP (20/6/80% today) - IV fluids - Vancomycin and Piperacillin-Tazobactam maintained Tachycardia ZENOBIA BOLTON DO 04/23/22 0523: Supervisory-Addendum Brief Verification & Attestation Participated in pt care: history, MDM, physical Personally performed: exam, history, MDM, supervision of care Care discussed with: Medical Student Procedures: n/a Results interpretation: Verified all documentation Verification and Attestation of Medical Student E/M Service A medical student performed and documented this service in my presence. I reviewed and verified all information documented by the medical student and made modifications to such information, when appropriate. I personally performed the physical exam and medical decision making. Zenobia Bolton, Apr 23, 2022,05:23 RADHA FRENCH Apr 22, 2022 15:54 ZENOBIA BOLTON DO Apr 23, 2022 05:23
--- NOTE | 2022-04-22 17:09 | Discharge Summary ---
Discharge Summary Hospital Course Was the Problem List Reviewed?: Yes Problems/Dx: (1) HCAP (healthcare-associated pneumonia) Status: Acute (2) Sepsis Status: Acute Qualifiers: Qualified Codes: A41.9 - Sepsis, unspecified organism (3) Respiratory failure Status: Acute Qualifiers: Qualified Codes: J96.01 - Acute respiratory failure with hypoxia; J96.02 - Acute respiratory failure with hypercapnia (4) Right lower lobe pneumonia Status: Acute Hospital Course Date of Admission: Apr 21, 2022 at 12:10 Admission Diagnosis : Family Physician/Provider: Fantasma Chin MD Date of Discharge: 04/22/22 Discharge Diagnosis: [ ] Hospital Course: 76 yo M admitted from the ER on 04/21 unresponsive with acute respiratory failure secondary to facility acquired PNA. He had arrived to the ER from EMS who found him unresponsive in his longterm; he was placed on a CPAP due to significant respiratory distress and soon after transitioned to BiPAP after pulse-ox showed him to still be hypoxic (88-89%). Work-up revealed revealed low lung volumes, a small left-sided pleural effusion with bibasilar opacities, cardiomegaly, and cholelithiasis. History of significant for recent hospitalization for bleeding ulcers. On admission, he was placed on cardiac step-down. He remains unresponsive and tachypnic on BiPAP (20/6/80%). His DNR/DNI status has been confirmed by his daughter been receiving updates from nursing staff; today she permitted transition to comfort care. Labs and Pending Lab Test: Laboratory Tests 04/22/22 05:47: White Blood Count 18.3H, Red Blood Count 3.25L, Hemoglobin 10.0L, Hematocrit 31L , Mean Corpuscular Volume 95, Mean Corpuscular Hemoglobin 31, Mean Corpuscular Hemoglobin Concent 32, Red Cell Distribution Width 13.1, Platelet Count 433H, Mean Platelet Volume 10.0, Immature Granulocyte % (Auto) 1, Neutrophils (%) (Auto) 89H, Lymphocytes (%) (Auto) 2L, Monocytes (%) (Auto) 7, Eosinophils (%) (Auto) 1, Basophils (%) (Auto) 0, Neutrophils # (Auto) 16.2H, Lymphocytes # (Auto) 0.4L, Monocytes # (Auto) 1.3H, Eosinophils # (Auto) 0.2, Basophils # (Auto) 0.0, Immature Granulocyte # (Auto) 0.2H, Neutrophils % (Manual) 64, Lymphocytes % (Manual) 4, Monocytes % (Manual) 5, Eosinophils % (Manual) 0, Basophils % (Manual) 0, Band Neutrophils 27, Polychromasia SLIGHT, Hypochromasia SLIGHT, Poikilocytosis SLIGHT, Target Cells SLIGHT, Crenated Cell SLIGHT, Sodium Level 137, Potassium Level 5.0, Chloride Level 107, Carbon Dioxide Level 16L, An ion Gap 14, Blood Urea Nitrogen 18, Creatinine 1.78H, Estimat Glomerular Filtration Rate 39, BUN/Creatinine Ratio 10, Glucose Level 126H, Calcium Level 8.7, Corrected Calcium 9.3, Total Bilirubin 0.8, Aspartate Amino Transf (AST/SGOT) 34, Alanine Aminotransferase (ALT/SGPT) 12, Alkaline Phosphatase 58, Total Protein 5.9L, Albumin 3.2 Microbiology 04/21/22 Blood Culture - Preliminary, Resulted No growth Home Meds Active Reported Pantoprazole Sodium 40 Mg Tablet.dr 40 Mg PO BID Ferrous Gluconate 324 Mg (37.5 Mg Iron) Tablet 324 Mg PO DAILY Divalproex Sodium 250 Mg Tablet.dr 250 Mg PO HS Atorvastatin Calcium 80 Mg Tablet 80 Mg PO 1800 Amlodipine Besylate 10 Mg Tablet 10 Mg PO DAILY HOLD FOR SBP<100 OR PULSE<60 Ondansetron Odt (Ondansetron) 4 Mg Tab.rapdis 4 Mg SL Q8H PRN Pepcid (Famotidine) 20 Mg Tablet 20 Mg PO DAILY PRN Tylenol (Acetaminophen) 325 Mg Tablet 650 Mg PO Q4H PRN Gabapentin 100 Mg Capsule 100 Mg PO TID Metoprolol Succinate 100 Mg Tab.er.24h 100 Mg PO BID HOLD IF SYSTOLIC IS <110 OR PULSE <60 Metformin HCl 500 Mg Tablet 500 Mg PO BID Divalproex Sodium 125 Mg Tablet.dr 125 Mg PO BID Vitamin B-12 (Cyanocobalamin (Vitamin B-12)) 1,000 Mcg Tablet.er 1,000 Mcg PO DAILY Oxybutynin Chloride ER (Oxybutynin Chloride) 5 Mg Tab.er.24 5 Mg PO DAILY Mirtazapine 15 Mg Tab.rapdis 15 Mg PO HS Methylphenidate HCl 5 Mg Tablet 5 Mg PO DAILY Melatonin 3 Mg Tablet 3 Mg PO HS Lisinopril 20 Mg Tablet 20 Mg PO DAILY HOLD FOR SBP <100 OR PULSE <80 Hydrochlorothiazide 12.5 Mg Tablet 12.5 Mg PO DAILY Assessment/Pt Instructions Discharge Planning: <30 minutes discharge planning Discharge Physical Examination Vital Signs Vital Signs Date Time Temp Pulse Resp B/P (MAP) Pulse Ox O2 Delivery O2 Flow Rate FiO2 04/22/22 12:58 103 04/22/22 12:22 37.7 28 118/59 (78) 97 NIV Bilevel 21.60 04/22/22 08:15 80 Allergies: Coded Allergies: nitrofurantoin (Verified Allergy, Unknown, 08/22/21) Discharge Summary Date of Admission Apr 21, 2022 at 12:10 Date of Discharge Admission Diagnosis resp failure Comfort Measures/ End of Life Care: Comfort Measures KAMINI BOLTON DO Apr 22, 2022 17:09
[2022-04-23] MEDS ORDERED: TROUGH ORDER-PHARMACY XX NR ×2 (02:00→08:00)
[2022-04-23] MEDS ORDERED: VANCOMYCIN 1500 MG/NS 500 ML IVPB IV SCH ×2 (08:00)
[2022-04-25] MEDS ORDERED: SCOPOLAMINE PATCH REMOVAL TP SCH (12:29)
== END 2022-04-22 17:48 | disposition expired | DRG 871 ==
LOC: EDUNIT# 09:08 → ER 09:09 → CSD 12:10
PROVIDERS: ADMIT Internal Medicine; ATTEND Internal Medicine
PROC: 5A09457 Assistance with Respiratory Ventilation, 24-96 Consecutive Hours, Continuous Positive Airway Pressure (ICD-10-PCS; principal; 2022-04-21)
DX: A41.9 Sepsis, unspecified organism (principal); J18.9 Pneumonia, unspecified organism; J96.01 Acute respiratory failure with hypoxia; J96.02 Acute respiratory failure with hypercapnia; R40.20 Unspecified coma; J44.0 Chronic obstructive pulmonary disease with (acute) lower respiratory infection; J90 Pleural effusion, not elsewhere classified; F03.94 Unspecified dementia, unspecified severity, with anxiety; Z66 Do not resuscitate; Z51.5 Encounter for palliative care; Z95.0 Presence of cardiac pacemaker; I48.91 Unspecified atrial fibrillation; G47.30 Sleep apnea, unspecified; K80.20 Calculus of gallbladder without cholecystitis without obstruction; I51.7 Cardiomegaly; E78.00 Pure hypercholesterolemia, unspecified; E11.40 Type 2 diabetes mellitus with diabetic neuropathy, unspecified; Z86.73 Personal history of transient ischemic attack (TIA), and cerebral infarction without residual deficits; N40.0 Benign prostatic hyperplasia without lower urinary tract symptoms; K21.9 Gastro-esophageal reflux disease without esophagitis; F32.A Depression, unspecified; I95.9 Hypotension, unspecified; Z79.84 Long term (current) use of oral hypoglycemic drugs; Z79.899 Other long term (current) drug therapy; Z20.822 Contact with and (suspected) exposure to COVID-19; Z88.1 Allergy status to other antibiotic agents; Y95 Nosocomial condition
CPT/HCPCS: 36415; 36600; 51702; 70450; 71045; 74176; 80053; 82805; 83605; 85007; 85025; 85027; 86850; 86900; 86901; 87040; 87636; 93005; 94640; 94660